=== PATIENT | male | born 1940 | race Caucasian/White ===

== ENCOUNTER → 2016-11-16 | Outpatient (CLI) | payer OTHER ==
[2016-11-16 13:07] LABS: BLOOD UREA NITROGEN 13 mg/dl (7-18); CREATININE 0.83 mg/dl (0.60-1.40); GLUCOSE 92 mg/dl (70-99)
[2016-11-16 13:08] LABS: BUN/CREATININE RATIO 15.1 (10-20); CARBON DIOXIDE 27 mmol/L (21-32); CHLORIDE 109 mmol/L (98-107); POTASSIUM 3.9 mmol/L (3.5-5.1); SODIUM 142 mmol/L (136-145)
[2016-11-16 13:28] LABS: CHOLESTEROL 197 mg/dl (0-200); CHOLESTEROL/HDL RATIO 4.3; HDL CHOLESTEROL 46 mg/dl; LDL CHOLESTEROL CALCULATED 127 mg/dl; PHOSPHORUS 2.5 mg/dl (2.5-4.9); TRIGLYCERIDES 120 mg/dl (0-150); VERY LOW DENSITY LIPOPROT CALC 24 mg/dl
[2016-11-16 13:38] LABS: CALCIUM 9.2 mg/dl (8.5-10.1)
== END | disposition home or self-care (01) ==
LOC: C.LABMFLN 10:21
PROVIDERS: ATTEND Urology
DX: E78.00 Pure hypercholesterolemia, unspecified (principal); N40.1 Benign prostatic hyperplasia with lower urinary tract symptoms

== ENCOUNTER → 2017-11-30 | Outpatient (CLI) | payer OTHER | END | disposition home or self-care (01) | LOC: C.LABMFLN 14:54 | PROVIDERS: ATTEND Urology | DX: N40.1 Benign prostatic hyperplasia with lower urinary tract symptoms (principal) ==

== ENCOUNTER → 2018-03-05 | Outpatient (CLI) | payer OTHER ==
[~2018-03-05] MED LIST: ASC400 PO
--- NOTE | 2018-03-05 12:11 | DIAGNOSTIC IMAGING REPORT ---
TWO VIEW CHEST CLINICAL HISTORY: Preoperative examination. FINDINGS: PA and lateral chest radiographs are obtained. No prior studies are available for comparison at the time of dictation. The cardiomediastinal silhouette is unremarkable noting atherosclerotic calcification of the thoracic aorta. Nonspecific interstitial thickening is likely chronic. No airspace consolidation or pleural effusion is identified. There is no pneumothorax. The skeletal structures are osteopenic. The bony thorax appears intact. Degenerative change is noted in the thoracic spine. IMPRESSION: No active disease in the chest. Electronically signed by: Jemal Christopher M.D. 03/05/2018 12:10 PM Dictated Date/Time: 03/05/2018 12:09 PM
[2018-03-05 12:13] LABS: BASO % 0.3 %; BASO ABS # 0.03 K/uL (0-0.2); EOS % 3.9 %; EOS ABS # 0.35 K/uL (0-0.5); HEMATOCRIT 48.4 % (42-52); HEMOGLOBIN 15.9 g/dL (14.0-18.0); IG# 0.02 K/uL (0.00-0.02); LYMPH % 28.6 %; LYMPH ABS # 2.57 K/uL (1.2-3.4); MEAN CELL VOLUME 91.3 fL (80-100); MEAN CORPUSCULAR HGB CONC 32.9 g/dl (32-36); MONO % 6.2 %; MONO ABS # 0.56 K/uL (0.11-0.59); NEUT % 60.8 %; NEUT ABS # 5.46 K/uL (1.4-6.5); PLATELET COUNT 237 K/uL (130-400); RED CELL DISTRIBUTION WIDTH CV 13.6 % (11.5-14.5); RED CELL DISTRIBUTION WIDTH SD 44.9 fL (36.4-46.3); WHITE BLOOD COUNT 8.99 K/uL (4.8-10.8)
[2018-03-05 12:23] LABS: BLOOD UREA NITROGEN 11 mg/dl (7-18); CALCIUM 8.7 mg/dl (8.5-10.1); CARBON DIOXIDE 27 mmol/L (21-32); CREATININE 0.79 mg/dl (0.60-1.40); GLUCOSE 104 mg/dl (70-99); SODIUM 139 mmol/L (136-145)
== END | disposition home or self-care (01) ==
LOC: C.CPL 10:50
PROVIDERS: ATTEND Orthopaedic Surgery
DX: Z01.818 Encounter for other preprocedural examination (principal)

== ENCOUNTER 2020-06-09 11:58 | Inpatient (IN) ==
[2020-06-09] MEDS ORDERED: SODIUM CHLORIDE 0.9% 500 ML IV SCH (12:30)
--- NOTE | 2020-06-09 12:34 | Emergency Department Note ---
Impression & Plan COVID-19, Weakness, Hypoxia, Decreased oral intake, Confusion ED Provider Note Provider: El Quintero MD DATE OF SERVICE:06/09/2020 CHIEF COMPLAINT: Confusion weakness coronavirus HISTORY OF PRESENT ILLNESS: Patient is a 80-year-old gentleman history of ulcerative colitis, BPH, emphysema presenting here today complaining of significant generalized weakness with diffuse myalgias being coronavirus positive. Patient was evaluated here 3 days ago did have a positive test from the end of last week for coronavirus 19. Patient previous seen by myself here and was complaining of nausea and weakness. Was hydrated had imaging and blood work and improved after IV hydration and antiemetics and wished to go home at that time. While being home he had worsening weakness and thus presents here. Patient himself complains of some severe pain and is quite fatigued. He denies significant diarrhea or nausea at this time. He is quite fatigued and only answers questions intermittently. Patient states he is not confused but again is difficult to get a good history from. No focal deficits appreciated. He does know the month and that May is coming up but is difficult to get detailed history from the patient. He denies any falls per his report. Patient's listed home contact number is not available. Did check with multiple staff members to see if the family has left an additional cell number on check- in today but not apparently available initially. I reviewed my prior note he started be symptomatic 8 days ago. Was able to get the patient's on cell phone later located and she reports limited intake less than 24 ounces of fluid over the last 2 days each. No more diarrhea reported but she states she can only have a conversation with anymore she not will be talking. She was concerned about them and thus brought her back here for reevaluation. He said he is not particular complaining of anything but again not really communicative. REVIEW OF SYSTEMS: Unable to obtain a full review of systems secondary the patient's mental status PAST MEDICAL HISTORY: As noted above MEDICATIONS: Reviewed home medication list SOCIAL HISTORY: Lives at home with , smoker PHYSICAL EXAM: GENERAL: alert to verbal stimuli no acute distress but only intermittently answers questions. Patient is aware of the month and the upcoming . Head: normocephalic and atraumatic EYES: No injection, discharge or icterus. NECK: Trachea midline. Supple. LUNGS: Airway patent. No retractions. HEART: Regular rate and rhythm. No chest wall tenderness ABDOMEN: Soft and non-tender, without guarding or rebound. SKIN: Acyanotic, warm, dry, without rashes EXTREMITIES: Without swelling, tenderness or deformity NEUROLOGICAL: Moves all extremities and follows simple commands. No facial droop appreciated. No significant slurred speech. Only intermittently answers questions. No significant facial droop appreciated. EK bpm normal sinus rhythm without PVC or PAC. Little bit of baseline artifact in V2. No clear ST segment elevation or depression. QTC 398. CONTINUOUS CARDIAC MONITORING: was ordered and showed a heart rate of 72 bpm in normal sinus rhythm Patient's laboratory studies and imaging reviewed. Differential includes Infection, dehydration, metabolic abnormality, hypo/hyperglycemia, electrolyte disturbance, anemia, hypoxia, cardiac sources, intracerebral event, toxicologic, neurologic, as well as other pathologies. IMPRESSION/MEDICAL DECISION MAKING: Patient presents known coronavirus positive now with worsening weakness and m yalgias and question of some confusion. Maintained on isolation here. Patient does not have significant focal deficits I doubt a large CVA. CT the head was completed given his age however to exclude acute intracranial normality given difficulty getting exam and history from the patient. Patient is Covid positive from PCR last week. Reviewed his prior work-up and did see him 3 days ago during prior ER visit. Repeat labs were sent today. Blood cultures been negative over the last 48 hours. Repeat chest x-ray was obtained. Given a fluid bolus. Patient has no significant abdominal tenderness on exam. Does follow some simple commands. CT the head without acute intracranial findings and again have a lower suspicion for acute CVA given his lack of focal neurological deficits. Lymphopenia is actually somewhat improved today. No anemia. Somewhat hypoxic and given dexamethasone here. Given his recent negative CTA within the last 72 hours do not feel we need to repeat at this time and have a lower suspicion for PE this is likely related to the coronavirus and worsening infection. D-dimer is somewhat more elevated today likely related to worsening coronavirus and also slightly elevated AST consistent with that as well. No significant electrolyte abnormalities with a mild hyponatremia 135 only noted. Creatinine similar to 3 days ago and no signs of acute STEPHANIE. Discussed with the patient's who we are able to locate via phone later and updated her on findings thus far. Patient requires admission given his worsening weakness and coronavirus status post hypoxic needs. Given dexamethasone for coronavirus treatment given his hypoxia at this time. Hospitalist contacted. DIAGNOSIS: COVID-19, weakness, hypoxia, decreased oral intake, confusion DISPOSITION: Hospitalist will evaluate for admission Past Med/Surg History Medical History (Updated 06/09/20 @ 15:56 by El Quintero M.D.) BPH (benign prostatic hyperplasia) Emphysema, unspecified Osteoarthritis PVC's (premature ventricular contractions) Ulcerative colitis Surgical History History of appendectomy History of cataract surgery B/L History of surgical removal of ganglion cyst L shoulder History of tonsillectomy History of total hip arthroplasty LEFT Social History Smoking Status: Current some day smoker Cigarettes Per Day: 10 PER DAY; Second Hand Exposure: No; Do You Dip or Chew Tobacco: No; Tobacco Cessation Education Requested by Patient: No Hx Alcohol Use: No Hx Substance Use: No Preferred Language: Bruneian Communication Ability: Effective Cloth Mender Required: No Beliefs That Will Affect Care: None marital status: Current Living Situation: Spouse Other Information That Helps Us Care for You: No Feels Safe at Home: Yes Safety Concerns: Feels Safe At This Time Assistive Devices: None Allergies Allergies Allergy/AdvReac Type Severity Reaction Status Date / Time No Known Allergies Allergy Verified 06/09/20 14:08 Home Meds Home Medications Medication Instructions Recorded Confirmed mesalamine [Delzicol] 800 mg PO TID 03/09/18 06/09/20 cholecalciferol (vitamin D3) 25 mcg PO QAM 06/06/20 06/09/20 [Vitamin D3] sildenafil 100 mg PO DIRECTED PRN 06/06/20 06/09/20 Zinc Gummies 1 tab PO DAILY 06/09/20 06/09/20 acetaminophen [Tylenol Extra 1,000 mg PO Q6H PRN 06/09/20 06/09/20 Strength] psyllium husk [Metamucil] 1 tbsp PO DAILY 06/09/20 06/09/20 Previous Rx's Medication Instructions Recorded ondansetron 4 mg PO Q8H PRN #12 tab 06/06/20 Results & Data (ED) Vital Signs Vital Signs - 24 hr 06/09/20 12:07 06/09/20 12:08 06/09/20 12:15 Pulse Rate 70 71 69 Pulse Rate from SpO2 Sensor 71 72 69 Pulse Rhythm Regular Pulse Strength Normal Respiratory Rate 26 H 21 Respiratory Effort / Characteristics Non-Labored Respiratory Depth Normal Respiratory Pattern Regular Blood Pressure 150/70 H Blood Pressure Mean 104 Blood Pressure Position Lying Pulse Oximetry 96 96 100 Oxygen Delivery Method Nasal Cannula Oxygen Flow Rate 3 3 3 Sepsis Recent Fever Within 48 Hours Yes Sepsis New/Unexplained Change in Mental Status Yes Sepsis Action Taken by Nursing No Action Required 06/09/20 12:20 06/09/20 12:28 06/09/20 12:30 Pulse Rate 70 68 Pulse Rate from SpO2 Sensor 74 69 Pulse Rhythm Pulse Strength Respiratory Rate 31 H 30 H Respiratory Effort / Characteristics Respiratory Depth Respiratory Pattern Blood Pressure 130/71 141/64 H Blood Pressure Mean 91 87 Blood Pressure Position Pulse Oximetry 85 L 97 94 Oxygen Delivery Method Room Air Oxygen Flow Rate 3 3 Sepsis Recent Fever Within 48 Hours Sepsis New/Unexplained Change in Mental Status Sepsis Action Taken by Nursing 06/09/20 12:39 06/09/20 12:45 06/09/20 12:46 Pulse Rate 69 69 Pulse Rate from SpO2 Sensor 69 69 Pulse Rhythm Pulse Strength Respiratory Rate 23 28 H Respiratory Effort / Characteristics Respiratory Depth Respiratory Pattern Blood Pressure 148/88 H Blood Pressure Mean 123 Blood Pressure Position Pulse Oximetry 95 93 95 Oxygen Delivery Method Nasal Cannula Oxygen Flow Rate 2 3 3 Sepsis Recent Fever Within 48 Hours Sepsis New/Unexplained Change in Mental Status Sepsis Action Taken by Nursing 06/09/20 13:00 06/09/20 13:15 06/09/20 13:16 Pulse Rate 68 71 73 Pulse Rate from SpO2 Sensor 70 71 72 Pulse Rhythm Pulse Strength Respiratory Rate 30 H 30 H 26 H Respiratory Effort / Characteristics Respiratory Depth Respiratory Pattern Blood Pressure 158/102 H 146/74 H Blood Pressure Mean 118 93 Blood Pressure Position Pulse Oximetry 94 95 Oxygen Delivery Method Oxygen Flow Rate 3 3 Sepsis Recent Fever Within 48 Hours Sepsis New/Unexplained Change in Mental Status Sepsis Action Taken by Nursing 06/09/20 13:30 Pulse Rate 68 Pulse Rate from SpO2 Sensor 69 Pulse Rhythm Pulse Strength Respiratory Rate 20 Respiratory Effort / Characteristics Respiratory Depth Respiratory Pattern Blood Pressure 132/67 Blood Pressure Mean 90 Blood Pressure Position Pulse Oximetry 93 Oxygen Delivery Method Oxygen Flow Rate 3 Sepsis Recent Fever Within 48 Hours Sepsis New/Unexplained Change in Mental Status Sepsis Action Taken by Nursing Laboratory Data Result diagrams: 06/09/20 12:25 06/09/20 12:25 Lab Results 06/09/20 06/09/20 06/09/20 Range/Units 12:25 12:25 12:25 WBC (4.8-10.8) K/uL RBC (4.7-6.1) M/uL Hgb (14.0-18.0) g/dL Hct (42-52) % MCV (80-100) fL MCH (25-34) pg MCHC (32-36) g/dL RDW Std Deviation (36.4-46.3) fL RDW Coeff of Kathrin (11.5-14.5) % Plt Count (130-400) K/uL MPV (7.4-10.4) fL Immature Gran % (Auto) % Neut % (Auto) % Lymph % (Auto) % [place] % (Auto) % Eos % (Auto) % Baso % (Auto) % Neut # (Auto) (1.4-6.5) K/uL Lymph # (Auto) (1.2-3.4) K/uL [place] # (Auto) (0.11-0.59) K/uL Eos # (Auto) (0-0.5) K/uL Baso # (Auto) (0-0.2) K/uL Immature Gran # (Auto) (0.00-0.02) K/uL PT 11.5 (9.0-12.0) Seconds INR 1.1 (0.9-1.1) D-Dimer 1460 H* (0-500) ug/L FEU Sodium 135 L (136-145) mmol/L Potassium 3.8 (3.5-5.1) mmol/L Chloride 101 (98-107) mmol/L Carbon Dioxide 28 (21-32) mmol/L Anion Gap 6.0 (3-11) BUN 20 H (7-18) mg/dl Creatinine 1.13 (0.6-1.4) mg/dl Est Cr Clr Drug Dosing Not Reportable Est GFR ( Amer) 71.3 Est GFR (Non-Af Amer) 61.5 BUN/Creatinine Ratio 17.7 (10-20) Glucose 108 H (70-99) mg/dl Lactate 1.4 (0.4-2.0) mmol/L Calcium 8.5 (8.5-10.1) mg/dl Magnesium 2.4 (1.8-2.4) mg/dl Total Bilirubin 0.5 (0.2-1) mg/dl AST 53 H (15-37) U/L ALT 32 (12-78) U/L Alkaline Phosphatase 93 (45-117) U/L Troponin I < 0.015 (0-0.045) ng/ml C-Reactive Protein 18.80 H (0-0.29) mg/dl Total Protein 7.9 (6.4-8.2) gm/dl Albumin 3.1 L (3.4-5.0) gm/dl Globulin 4.8 H (2.5-4.0) gm/dl Albumin/Globulin Ratio 0.6 L (0.9-2) Procalcitonin (0-0.5) ng/ml TSH 0.437 (0.300-4.500) uIu/ml Blood Type Antibody Screen 06/09/20 06/09/20 06/09/20 Range/Units 12:25 13:40 13:40 WBC 4.34 L (4.8-10.8) K/uL RBC 5.50 (4.7-6.1) M/uL Hgb 16.6 (14.0-18.0) g/dL Hct 49.9 (42-52) % MCV 90.7 (80-100) fL MCH 30.2 (25-34) pg MCHC 33.3 (32-36) g/dL RDW Std Deviation 44.1 (36.4-46.3) fL RDW Coeff of Kathrin 13.2 (11.5-14.5) % Plt Count 156 (130-400) K/uL MPV 10.6 H (7.4-10.4) fL Immature Gran % (Auto) 0.2 % Neut % (Auto) 77.4 % Lymph % (Auto) 15.7 % [place] % (Auto) 6.5 % Eos % (Auto) 0.0 % Baso % (Auto) 0.2 % Neut # (Auto) 3.36 (1.4-6.5) K/uL Lymph # (Auto) 0.68 L (1.2-3.4) K/uL [place] # (Auto) 0.28 (0.11-0.59) K/uL Eos # (Auto) 0.00 (0-0.5) K/uL Baso # (Auto) 0.01 (0-0.2) K/uL Immature Gran # (Auto) 0.01 (0.00-0.02) K/uL PT (9.0-12.0) Seconds INR (0.9-1.1) D-Dimer (0-500) ug/L FEU Sodium (136-145) mmol/L Potassium (3.5-5.1) mmol/L Chloride (98-107) mmol/L Carbon Dioxide (21-32) mmol/L Anion Gap (3-11) BUN (7-18) mg/dl Creatinine (0.6-1.4) mg/dl Est Cr Clr Drug Dosing Est GFR ( Amer) Est GFR (Non-Af Amer) BUN/Creatinine Ratio (10-20) Glucose (70-99) mg/dl Lactate (0.4-2.0) mmol/L Calcium (8.5-10.1) mg/dl Magnesium (1.8-2.4) mg/dl Total Bilirubin (0.2-1) mg/dl AST (15-37) U/L ALT (12-78) U/L Alkaline Phosphatase (45-117) U/L Troponin I (0-0.045) ng/ml C-Reactive Protein (0-0.29) mg/dl Total Protein (6.4-8.2) gm/dl Albumin (3.4-5.0) gm/dl Globulin (2.5-4.0) gm/dl Albumin/Globulin Ratio (0.9-2) Procalcitonin 0.23 (0-0.5) ng/ml TSH (0.300-4.500) uIu/ml Blood Type AB Positive Antibody Screen NEGATIVE Administered Medications Lactated Ringer's (Lr) 1,000 mls @ 150 mls/hr IV .Q6H40M [facility] Stop: 07/09/20 13:59 Last Admin: 06/09/20 14:38 Dose: 80 mls/hr Documented by: [id number] Discontinued Medications Dexamethasone (Dexamethasone Sod Inj 10 Mg/Ml Vial) 6 mg IV NOW ONE Stop: 06/09/20 12:52 Last Admin: 06/09/20 13:30 Dose: 6 mg Documented by: [id number] Sodium Chloride (Nss) 500 mls @ 999 mls/hr IV .Q31M KYLE Stop: 06/09/20 13:00 Last Infusion: 06/09/20 13:55 Dose: 0 mls/hr Documented by: [id number] Admin: 06/09/20 12:48 Dose: 999 mls/hr Documented by: [id number] Discharge Plan Visit Data Chief Complaint: Confusion Stated Complaint: COVID +, TOTAL CONFUSION, NOT FUNCTIONING ED Provider: El Quintero Discharge Problem: COVID-19, Weakness, Hypoxia, Decreased oral intake, Confusion Patient Disposition: Admitted As Inpatient Discharge Instructions Interventions: ED Discharge Assessment Last Done: 06/09/20 14:09
--- NOTE | 2020-06-09 12:42 | CT Scan Report ---
CT head/brain wo con CLINICAL HISTORY: Weakness, confusion, Covid positive patient COMPARISON STUDY: No previous studies for comparison. TECHNIQUE: Axial CT of the brain is performed from the vertex to the skull base. IV contrast was not administered for this examination. A dose lowering technique was utilized adhering to the principles of ALARA. CT DOSE: 690.05 mGycm FINDINGS: No intra or extra-axial mass lesions are visualized. There is no CT evidence of acute cortical infarc tion. There is no evidence of midline shift. There is no acute hemorrhage. No calvarial fractures ar e visualized. There is no evidence of pathologic ventricular dilatation. There is no evidence of acute sinusitis IMPRESSION: No acute intracranial findings ACT 112: Negative or not required by law. Electronically signed by: Aditya Chambers M.D. 06/09/2020 12:41 PM
[2020-06-09 12:48] LABS: Basophils # (auto) 0.01 K/uL (0-0.2); Basophils % (auto) 0.2 %; Hematocrit (blood only) 49.9 % (42-52); Hemoglobin 16.6 g/dL (14.0-18.0); Immature Granulocytes # (auto) 0.01 K/uL (0.00-0.02); Immature Granulocytes % (auto) 0.2 %; Lymphocytes # (auto) 0.68 K/uL (1.2-3.4); Lymphocytes % (auto) 15.7 %; Mean Corpuscular Hemoglobin 30.2 pg (25-34); Mean Corpuscular Hgb Conc 33.3 g/dL (32-36); Mean Corpuscular Volume 90.7 fL (80-100); Mean Platelet Volume 10.6 fL (7.4-10.4); Monocytes # (auto) 0.28 K/uL (0.11-0.59); Monocytes % (auto) 6.5 %; Neutrophils # (auto) 3.36 K/uL (1.4-6.5); Neutrophils % (auto) 77.4 %; Platelet Count 156 K/uL (130-400); RDW Coefficient of Variation 13.2 % (11.5-14.5); RDW Standard Deviation 44.1 fL (36.4-46.3); White Blood Count 4.34 K/uL (4.8-10.8)
[2020-06-09] MEDS ORDERED: DEXAMETHASONE SOD INJ 10 MG/ML VIAL IV ONE (12:51)
[2020-06-09 13:02] LABS: INR 1.1 (0.9-1.1); Prothrombin Time 11.5 Seconds (9.0-12.0)
[2020-06-09 13:05] LABS: Alanine Aminotransferase 32 U/L (12-78); Albumin Level 3.1 gm/dl (3.4-5.0); Aspartate Aminotransferase 53 U/L (15-37); BUN Creatinine Ratio 17.7 (10-20); Blood Urea Nitrogen 20 mg/dl (7-18); Calcium 8.5 mg/dl (8.5-10.1); Carbon Dioxide 28 mmol/L (21-32); Chloride 101 mmol/L (98-107); Est GFR (African American) 71.3; Est GFR (Non-African American) 61.5; Glucose 108 mg/dl (70-99); Magnesium 2.4 mg/dl (1.8-2.4); Potassium 3.8 mmol/L (3.5-5.1); Sodium 135 mmol/L (136-145)
[2020-06-09 13:09] LABS: D Dimer 1460 ug/L FEU (0-500)
[2020-06-09 13:16] LABS: Albumin Globulin Ratio 0.6 (0.9-2); Alkaline Phosphatase 93 U/L (45-117); Bilirubin,Total 0.5 mg/dl (0.2-1); Globulin 4.8 gm/dl (2.5-4.0); Thyroid Stimulating Hormone 0.437 uIu/ml (0.300-4.500); Total Protein 7.9 gm/dl (6.4-8.2); Troponin I < 0.015 ng/ml (0-0.045)
--- NOTE | 2020-06-09 13:36 | XRay Report ---
XR chest 1V portable CLINICAL HISTORY: weakness COMPARISON STUDY: 06/06/2020 FINDINGS: The heart is the upper limits of normal in size. There are bilateral interstitial opacities . Likely diagnostic considerations this could represent a bilateral pneumonia (viral), or atypical ap pearance of pulmonary edema. Clinical and radiographic follow-up is recommended. There are postsurgic al changes of a reverse total right shoulder arthroplasty IMPRESSION: 1. Interval development of diffuse bilateral interstitial opacities. Likely diagnostic considerations include a bilateral pneumonia (viral), or atypical appearance of pulmonary edema. Correlation with C ovid 19 test results recommended.. ACT 112: Negative or not required by law. Electronically signed by: Aditya Chambers M.D. 06/09/2020 1:35 PM
--- NOTE | 2020-06-09 13:38 | History & Physical Report ---
Date of Service June 09, 2020 Assessment & Plan (1) COVID-19: Dexamethasone 6mg IV daily for 10 days. Start remdesivir. Convalescent plasma - verbal consent for transfusion gained from his . (2) Hypoxia: Does not appear to be in respiratory distress. Aim O2 sats > 90% (3) Weakness: Secondary to above. Once improving will need extensive PT/OT. (4) Altered mental state: Suspected infective/metabolic encephalopathy secondayr to dehydration and COVID-19. reports much improvement with IV fluids given in ER previously. (5) Decreased oral intake: LR 150 ml/hr. If no oral intake tomorrow may have to consider NG tube. (6) Ulcerative colitis: Continue mesalamine 800mg TID (7) DVT prophylaxis: Lovenox 40mg SQ BID Admission and Anticipated Discharge Date Admission Date: 06/09/2020 History of Present Illness Chief Complaint: Generalized fatigue and altered mental status Primary Care Provider: Anay Barrios MD Todd Jett is a 80 year old male with known diagnosis of COVID-19 who presents to the ER with altered mental state and worsening ambulation. Unable to get any history from patient but does note he is not in any pain. Following simple one step commands but disorientated x3. Baseline obtained from his . He is ambulatory without aids. Able to have full meaningful conversations - currently very far off his baseline mentation. He was seen in the ER 3 days previously for shortness of breath, nausea and fatigue. Onset of symptoms per PCP note June 01 (8 days previously). During his last ER visit the patient did not wish to stay in hospital and was not significantly hypoxic. He improved his mentation substantially with 1L NSS bolus therefore was subsequently discharged home. Unfortunately he continued to significantly decline at home and became much more generally confused and weak. No one sided weakness. His reports he has not been drinking or eating much at all in the last 2 days. Nausea is somewhat better but her biggest concern is he now cannot ambulate and is not answering questions appropriately - mainly just moaning and groaning. Discussed interventions with his over the phone including dexamethasone, convalescent plasma and remdesivir which she agreed to all three of these interventions. Allergies Allergy/AdvReac Type Severity Reaction Status Date / Time No Known Allergies Allergy Verified 06/09/20 14:08 Home Medications Medication Instructions Recorded Confirmed Type mesalamine [Delzicol] 800 mg PO TID 03/09/18 06/09/20 History cholecalciferol (vitamin D3) 25 mcg PO QAM 06/06/20 06/09/20 History [Vitamin D3] ondansetron 4 mg PO Q8H PRN #12 tab 06/06/20 06/09/20 Rx sildenafil 100 mg PO DIRECTED PRN 06/06/20 06/09/20 History Zinc Gummies 1 tab PO DAILY 06/09/20 06/09/20 History acetaminophen [Tylenol Extra 1,000 mg PO Q6H PRN 06/09/20 06/09/20 History Strength] psyllium husk [Metamucil] 1 tbsp PO DAILY 06/09/20 06/09/20 History Past Med/Surg History Medical History BPH (benign prostatic hyperplasia) Emphysema, unspecified Osteoarthritis PVC's (premature ventricular contractions) Ulcerative colitis Surgical History History of appendectomy History of cataract surgery B/L History of surgical removal of ganglion cyst L shoulder History of tonsillectomy History of total hip arthroplasty LEFT Social History Smoking Status: Current some day smoker Cigarettes Per Day: 10 PER DAY; Second Hand Exposure: No; Do You Dip or Chew Tobacco: No; Tobacco Cessation Education Requested by Patient: No Hx Alcohol Use: No Hx Substance Use: No Preferred Language: Bengali Communication Ability: Effective Entry Level Receptionist Required: No Beliefs That Will Affect Care: None marital status: Current Living Situation: Spouse Other Information That Helps Us Care for You: No Feels Safe at Home: Yes Safety Concerns: Feels Safe At This Time Assistive Devices: Oxygen - Continuous Review of Systems Review of Systems: Unobtainable due to cognitive status Physical Exam Constitutional: well developed; + not well nourished and no acute distress Lying on left side an will not roll onto his back for me Eyes: PERRL, conjunctivae normal, anicteric sclerae Neck: trachea midline Respiratory: Auscultation: + rhonchi (bilateral); no wheezes Cardiovascular: Rate/Rhythm: regular rate and regular rhythm Heart Sounds: no murmur Extremities: normal capillary refill; no calf tenderness and no pedal edema Gastrointestinal (Abdomen): Inspection/Auscultation: abdomen normal to inspection and + hypoactive bowel sounds; abdomen not distended Percussion/Palpation: abdomen soft; abdomen nontender, no guarding and abdomen not rigid Musculoskeletal: no cyanosis or clubbing, extremities motor strength 5/5 Skin: no rashes, warm and dry Neurologic: moves all extremities, awake and + confused (able to follow simple one step commands); no focal motor deficits (no lateralizing decifit) Motor/Sensory: no tremor Psychiatric: Orientation: alert; + not oriented to person, + not oriented to place and + not oriented to time Results & Data Results & Data ([facility]) Vital Signs (Past 12 Hours) Vital Signs Pulse Resp BP Pulse Ox 06/09/20 12:46 69 28 H 148/88 H 95 06/09/20 12:45 69 23 93 06/09/20 12:39 95 06/09/20 12:30 68 30 H 141/64 H 94 06/09/20 12:28 70 31 H 130/71 97 06/09/20 12:20 85 L 06/09/20 12:15 69 21 100 06/09/20 12:08 71 96 06/09/20 12:07 70 26 H 150/70 H 96 Diagnostic Findings XR chest 1V portable IMPRESSION: 1. Interval development of diffuse bilateral interstitial opacities. Likely diagnostic considerations include a bilateral pneumonia (viral), or atypical appearance of pulmonary edema. Correlation with Covid [address] head/brain wo con IMPRESSION: No acute intracranial findings Medications Administered ER medications given: NSS 500 mL IV bolus Dexamethasone 6 mg IV ECG Indication: altered mental status Rate (beats per minute): 69 Rhythm: normal sinus Comparison ECG Date: from (June 06, 2020) Change: no significant change Code Status & VTE Plan Code Status DNR. His wishes to have all other treatment outside of the cardiac arrest including intubation and ventilation. VTE Prophylaxis Plan VTE Prophylaxis will be ordered: Yes PG Care Time/CCT Total # of Minutes Spent Total Time Spent with Patient: Total time spent is greater than 50% in coordination of care (as documented) at patient's floor/unit and/or counseling patient: Coding Level of Care Code 99782 Initial Inpt Care Lvl 3 Diagnoses COVID-19 U07.1 Hypoxia R09.02 Weakness R53.1 Altered mental state R41.82 Decreased oral intake R63.8 Ulcerative colitis K51.90 DVT prophylaxis Z29.9
[2020-06-09] MEDS: LACTATED RINGER'S 1,000 ML IV SCH (14:38)
[2020-06-09] MEDS ORDERED: POLYETHYLENE (MIRALAX) 17 GM PACK PO PRN (15:25)
[2020-06-09] MEDS ORDERED: ONDANSETRON INJ 2 MG/ML 2 ML VIAL IV PRN (15:25)
[2020-06-09] MEDS ORDERED: ALUMINUM/MAGNESIUM SUSP 30 ML UDC PO PRN (15:25)
[2020-06-09] MEDS ORDERED: REMDESIVIR 200 MG in SODIUM CHLORIDE 0.9% 210 ML IV ONE (16:00)
[2020-06-09] MEDS ORDERED: SODIUM CHLORIDE 0.9% 10ML FLUSH IV SCH (18:00)
[2020-06-09] MEDS: MESALAMINE 400 MG CAPDR PO SCH (20:06)
[2020-06-09] MEDS: ENOXAPARIN INJ 40 MG/0.4 ML SYR SQ SCH (20:06)
[2020-06-09 20:12] LABS: Appearance Urine Clear (Clear); Bacteria Urine Automated Negative (Negative); Bilirubin Urine Negative (Negative); Blood Urine 3+ (Negative); Color Urine Dark Yellow; Epithelial Cell Urine Auto >30 /lpf (0-5); Glucose Urine UA Negative (Negative); Ketones Urine 2+ (Negative); Leukocyte Esterase Urine Negative (Negative); Nitrite Urine Negative (Negative); Protein Urine 2+ (Negative); RBC Urine Automated >30 /hpf (0-4); Specific Gravity Urine 1.031 (1.000-1.030); Urobilinogen Urine Negative (Negative); pH Urine 5.5 (4.5-7.5)
[2020-06-10] MEDS: LACTATED RINGER'S 1,000 ML IV SCH ×3 (00:56→14:39)
[2020-06-10] MEDS: ACETAMINOPHEN 325 MG TAB PO PRN (04:45)
--- NOTE | 2020-06-10 05:01 | Electrocardiogram Report ---
Test Reason : Blood Pressure : / mmHG Vent. Rate : 069 BPM Atrial Rate : 069 BPM P-R Int : 142 ms QRS Dur : 080 ms QT Int : 372 ms P-R-T Axes : 056 060 070 degrees QTc Int : 398 ms Normal sinus rhythm Possible Left atrial enlargement Borderline ECG When compared with ECG of 06-JUN-2020 12:57, No significant change was found Confirmed by Chris Willingham ([id number]) on 06/10/2020 5:01:23 AM Referred By: Confirmed By:Chris Willingham
[2020-06-10 08:07] LABS: Hematocrit (blood only) 43.8 % (42-52); Immature Granulocytes # (auto) 0.01 K/uL (0.00-0.02); Immature Granulocytes % (auto) 0.2 %; Lymphocytes % (auto) 16.5 %; Mean Corpuscular Hemoglobin 30.9 pg (25-34); Mean Corpuscular Hgb Conc 34.2 g/dL (32-36); Mean Corpuscular Volume 90.1 fL (80-100); Mean Platelet Volume 11.5 fL (7.4-10.4); Monocytes # (auto) 0.49 K/uL (0.11-0.59); Monocytes % (auto) 10.1 %; Neutrophils # (auto) 3.56 K/uL (1.4-6.5); Neutrophils % (auto) 73.2 %; Platelet Count 171 K/uL (130-400); RDW Coefficient of Variation 13.3 % (11.5-14.5); RDW Standard Deviation 44.3 fL (36.4-46.3); Red Blood Count 4.86 M/uL (4.7-6.1); White Blood Count 4.86 K/uL (4.8-10.8)
[2020-06-10 08:34] LABS: Albumin Level 2.5 gm/dl (3.4-5.0); Calcium 8.6 mg/dl (8.5-10.1); Creatinine Clr Calc Pharmacy 67.6 ml/min; Est GFR (African American) 98.5
[2020-06-10 08:36] LABS: Albumin Globulin Ratio 0.7 (0.9-2); Bilirubin,Total 0.5 mg/dl (0.2-1); Globulin 3.7 gm/dl (2.5-4.0); Total Protein 6.2 gm/dl (6.4-8.2)
[2020-06-10] MEDS: ENOXAPARIN INJ 40 MG/0.4 ML SYR SQ SCH ×2 (09:10→19:30)
[2020-06-10] MEDS: MESALAMINE 400 MG CAPDR PO SCH ×3 (09:11→19:29)
[2020-06-10] MEDS: CHOLECALCIFEROL 1,000 UNITS 25 MCG TAB PO SCH (09:11)
[2020-06-10] MEDS: REMDESIVIR 100 MG in SODIUM CHLORIDE 0.9% 230 ML IV SCH (09:17)
[2020-06-10] MEDS: DEXAMETHASONE SOD PHOSPHATE 6 MG in SYRINGE 0 ML IV SCH (09:18)
[2020-06-10] MEDS: SODIUM CHLORIDE 0.9% 10ML FLUSH IV SCH (09:18)
--- NOTE | 2020-06-10 22:37 | Hospitalist Progress Note ---
Date of Service June 10, 2020 Assessment & Plan (1) COVID-19: Dexamethasone 6mg IV daily for 10 days. Started remdesivir. concern over discharging too soon, however patient is no longer confused, will reassess in AM. Convalescent plasma - verbal consent for transfusion gained from his . (2) Hypoxia: Does not appear to be in respiratory distress. Aim O2 sats > 90% (3) Weakness: Secondary to above. Once improving will need extensive PT/OT. (4) Altered mental state: Suspected infective/metabolic encephalopathy secondayr to dehydration and COVID-19. reports much improvement with IV fluids given in ER previously. (5) Decreased oral intake: LR 150 ml/hr. (6) Ulcerative colitis: Continue mesalamine 800mg TID (7) DVT prophylaxis: Lovenox 40mg SQ BID Admission and Anticipated Discharge Date Admission Date: June 09, 2020 Subjective States breathing better, wants to be discharged in AM. Review of Systems Review of Systems: All systems reviewed & are unremarkable except as noted in HPI & below Physical Exam Physical Exam: Constitutional: well developed; + not well nourished and no acute distress Eyes: PERRL, conjunctivae normal, anicteric sclerae Neck: trachea midline Respiratory: Auscultation: rhonchi (bilateral); no wheezes Cardiovascular: Rate/Rhythm: regular rate and regular rhythm Heart Sounds: no murmur Extremities: normal capillary refill; no calf tenderness and no pedal edema Gastrointestinal (Abdomen): Inspection/Auscultation: abdomen normal to inspection and + hypoactive bowel sounds; abdomen not distended Percussion/Palpation: abdomen soft; abdomen nontender, no guarding and abdomen not rigid Musculoskeletal: no cyanosis or clubbing, extremities motor strength 5/5 Skin: no rashes, warm and dry Neurologic: moves all extremities, awake and + confused (able to follow simple one step commands); no focal motor deficits (no lateralizing decifit) Motor/Sensory: no tremor Psychiatric: Orientation: alert; oriented x3 Results & Data Results & Data ([facility]) Vital Signs (Past 12 Hours) Vital Signs Temp Pulse Pulse Resp BP Pulse Ox 06/10/20 19:16 36.6 C 57 L 19 122/50 L 90 06/10/20 16:18 36.4 C L 56 L 18 129/52 L 92 06/10/20 15:23 61 06/10/20 12:07 36.5 C 60 19 138/68 90 PG Care Time/CCT Total # of Minutes Spent Total Time Spent with Patient: Total time spent is greater than 50% in coordination of care (as documented) at patient's floor/unit and/or counseling patient: Coding Level of Care Code 76268 Subseq Hosp Care Lvl 3 Diagnoses COVID-19 U07.1 Hypoxia R09.02 Weakness R53.1 Altered mental state R41.82 Decreased oral intake R63.8 Ulcerative colitis K51.90 DVT prophylaxis Z29.9
[2020-06-11 07:31] LABS: Hematocrit (blood only) 43.4 % (42-52); Hemoglobin 14.5 g/dL (14.0-18.0); Mean Corpuscular Hemoglobin 30.1 pg (25-34); Mean Corpuscular Hgb Conc 33.4 g/dL (32-36); Mean Corpuscular Volume 90.2 fL (80-100); Mean Platelet Volume 11.8 fL (7.4-10.4); Platelet Count 198 K/uL (130-400); RDW Coefficient of Variation 13.5 % (11.5-14.5); Red Blood Count 4.81 M/uL (4.7-6.1); White Blood Count 7.28 K/uL (4.8-10.8)
[2020-06-11 09:14] LABS: BUN Creatinine Ratio 29.6 (10-20); Calcium 8.1 mg/dl (8.5-10.1); Creatinine Clr Calc Pharmacy 72.1 ml/min; Est GFR (African American) 101.1; Est GFR (Non-African American) 87.2; Potassium 4.3 mmol/L (3.5-5.1)
[2020-06-11] MEDS: REMDESIVIR 100 MG in SODIUM CHLORIDE 0.9% 230 ML IV SCH (09:21)
[2020-06-11] MEDS: CHOLECALCIFEROL 1,000 UNITS 25 MCG TAB PO SCH (09:22)
[2020-06-11] MEDS: DEXAMETHASONE SOD PHOSPHATE 6 MG in SYRINGE 0 ML IV SCH (09:22)
[2020-06-11] MEDS: MESALAMINE 400 MG CAPDR PO SCH ×4 (09:23→22:59)
[2020-06-11] MEDS: ENOXAPARIN INJ 40 MG/0.4 ML SYR SQ SCH ×2 (09:23→20:20)
[2020-06-11] MEDS: SODIUM CHLORIDE 0.9% 10ML FLUSH IV SCH (09:24)
--- NOTE | 2020-06-11 10:14 | XRay Report ---
XR chest 1V portable HISTORY: 80 years-old Male hypoxia acute hypoxia COMPARISON: Chest radiograph 06/09/2020 TECHNIQUE: Portable AP view of the chest FINDINGS: Cardiomediastinal and hilar silhouettes are within normal limits. Mild emphysema. Bilateral interstit ial opacities are redemonstrated, stable to slightly improved from comparison. There is improved aera tion of the left lung base. No pneumothorax, pleural effusion or lobar airspace elevation. Degenerati ve changes of the left shoulder and spine. Reverse right shoulder total joint arthroplasty. IMPRESSION: Stable to slightly improved bilateral reticular opacities with improved aeration of the l eft lung base. Findings are suggestive of atypical pneumonia versus pulmonary edema. ACT 112: Negative or not required by law. The above report was generated using voice recognition software. It may contain grammatical, syntax o r spelling errors. Electronically signed by: Gideon Goodrich M.D. 06/11/2020 10:13 AM
[2020-06-11] MEDS: LACTATED RINGER'S 1,000 ML IV SCH (19:15)
[2020-06-11] MEDS: ACETAMINOPHEN 325 MG TAB PO PRN (21:07)
--- NOTE | 2020-06-11 23:16 | Hospitalist Progress Note ---
Date of Service June 11, 2020 Assessment & Plan (1) COVID-19: Dexamethasone 6mg IV daily for 10 days. continue remdesivir final dose (06/13) requiring now 4 liters nasal cannula, more than day prior which was 2 liters. Patient no longer confused, but still wants to leave. His though will not pick him up. Convalescent plasma - verbal consent for transfusion gained from his . (2) Hypoxia: Does not appear to be in respiratory distress. Aim O2 sats > 90% (3) Weakness: Secondary to above. did poorly with PT. (4) Altered mental state: Suspected infective/metabolic encephalopathy secondayr to dehydration and COVID-19. Improved.. (5) Decreased oral intake: treated with iV flud for first 36 hours. held fluid. (6) Ulcerative colitis: Continue mesalamine 800mg TID (7) DVT prophylaxis: Lovenox 40mg SQ BID Admission and Anticipated Discharge Date Admission Date: June 09, 2020 Subjective Patient upset that he is in hospital. "I am sick of this medcal bullshit, I want to go home" Nurse at bedside and explains that he did poorly on physical therapy and is requiring more oxygen. Updated on phone. Review of Systems Review of Systems: All systems reviewed & are unremarkable except as noted in HPI & below Physical Exam Physical Exam: Constitutional: well developed; + not well nourished and no acute distress Eyes: PERRL, conjunctivae normal, anicteric sclerae Neck: trachea midline Respiratory: Auscultation: rhonchi (bilateral); no wheezes Cardiovascular: Rate/Rhythm: regular rate and regular rhythm Heart Sounds: no murmur Extremities: normal capillary refill; no calf tenderness and no pedal edema Gastrointestinal (Abdomen): Inspection/Auscultation: abdomen normal to inspection and + hypoactive bowel sounds; abdomen not distended Percussion/Palpation: abdomen soft; abdomen nontender, no guarding and abdomen not rigid Musculoskeletal: no cyanosis or clubbing, extremities motor strength 5/5 Skin: no rashes, warm and dry Neurologic: moves all extremities, awake and + confused (able to follow simple one step commands); no focal motor deficits (no lateralizing decifit) Motor/Sensory: no tremor Psychiatric: Orientation: alert; oriented x3 Results & Data Results & Data ([facility]) Vital Signs (Past 12 Hours) Vital Signs Temp Pulse Pulse Resp BP Pulse Ox 06/11/20 19:05 37.0 C 62 20 132/58 L 95 06/11/20 16:00 59 L 06/11/20 15:07 36.6 C 60 24 144/53 H 95 06/11/20 11:36 36.6 C 59 L 19 119/61 93 PG Care Time/CCT Total # of Minutes Spent Total Time Spent with Patient: Total time spent is greater than 50% in coordination of care (as documented) at patient's floor/unit and/or counseling patient: Coding Level of Care Code 23263 Subseq Hosp Care Lvl 3 Diagnoses COVID-19 U07.1 Hypoxia R09.02 Weakness R53.1 Altered mental state R41.82 Decreased oral intake R63.8 Ulcerative colitis K51.90 DVT prophylaxis Z29.9 Time Spent (min) 35
[2020-06-12 06:46] LABS: Basophils # (auto) 0.01 K/uL (0-0.2); Basophils % (auto) 0.2 %; Eosinophils # (auto) 0.01 K/uL (0-0.5); Eosinophils % (auto) 0.2 %; Hematocrit (blood only) 47.7 % (42-52); Hemoglobin 15.8 g/dL (14.0-18.0); Immature Granulocytes # (auto) 0.02 K/uL (0.00-0.02); Immature Granulocytes % (auto) 0.3 %; Lymphocytes % (auto) 16.8 %; Mean Corpuscular Hemoglobin 30.2 pg (25-34); Mean Corpuscular Hgb Conc 33.1 g/dL (32-36); Mean Corpuscular Volume 91.2 fL (80-100); Mean Platelet Volume 11.4 fL (7.4-10.4); Monocytes # (auto) 0.14 K/uL (0.11-0.59); Monocytes % (auto) 2.1 %; Neutrophils # (auto) 5.27 K/uL (1.4-6.5); Neutrophils % (auto) 80.4 %; Platelet Count 216 K/uL (130-400); RDW Coefficient of Variation 13.8 % (11.5-14.5); RDW Standard Deviation 46.3 fL (36.4-46.3); Red Blood Count 5.23 M/uL (4.7-6.1); White Blood Count 6.55 K/uL (4.8-10.8)
[2020-06-12 07:14] LABS: BUN Creatinine Ratio 26.4 (10-20); Calcium 8.5 mg/dl (8.5-10.1); Creatinine Clr Calc Pharmacy 62.1 ml/min; Est GFR (African American) 95.1; Est GFR (Non-African American) 82.1; Potassium 4.3 mmol/L (3.5-5.1)
[2020-06-12] MEDS: DEXAMETHASONE SOD PHOSPHATE 6 MG in SYRINGE 0 ML IV SCH (09:38)
[2020-06-12] MEDS: REMDESIVIR 100 MG in SODIUM CHLORIDE 0.9% 230 ML IV SCH (09:38)
[2020-06-12] MEDS: ENOXAPARIN INJ 40 MG/0.4 ML SYR SQ SCH ×2 (09:38→22:02)
[2020-06-12] MEDS: CHOLECALCIFEROL 1,000 UNITS 25 MCG TAB PO SCH (09:39)
[2020-06-12] MEDS: MESALAMINE 400 MG CAPDR PO SCH ×3 (09:39→22:01)
[2020-06-12] MEDS: SODIUM CHLORIDE 0.9% 10ML FLUSH IV SCH (10:41)
--- NOTE | 2020-06-12 11:07 | Hospitalist Progress Note ---
Date of Service June 12, 2020 Assessment & Plan (1) COVID-19: Presented with infectious encephalopathy and trouble with ambulation. Onset of symptoms was 06/01/2020. Tested positive for Covid on 06/03/2020. - S/p convalescent plasma on 06/09/2020 - Dexamethasone 6 mg daily x 10 days (Last day: 06/18/2020) - Continue remdesivir final dose (06/13) - Still requiring 3-5 L NC. - Patient was compliant on my interview, but not very willing to participate. (2) Weakness: Secondary to above. Did poorly with PT. - PT/OT; likely CM for rehab (3) Altered mental state: Suspected infective/metabolic encephalopathy secondary to dehydration and COVID-19. - Improving (4) Ulcerative colitis: No indication of flare at this time. - Continue mesalamine 800mg PO TID (5) DVT prophylaxis: Lovenox 40mg SQ BID Admission and Anticipated Discharge Date Admission Date: June 09, 2020 Subjective Patient is quite tired and really only answers yes/no questions for me. However, he does follow commands and answer appropriately. Reports no fevers/chills, chest pain, shortness of breath, abdominal pain, nausea, or vomiting. Physical Exam Constitutional: WD/WN, vitals as above Eyes: EOM intact bilaterally; no conjunctival abnormality ENMT: external ear and nose normal, oropharynx normal Neck: trachea midline, no thyromegaly normal visual inspection Respiratory: normal respiratory effort, lungs clear to auscultation no respiratory distress Cardiovascular: RRR, no murmur, no edema Gastrointestinal (Abdomen): Inspection/Auscultation: abdomen normal to inspection; abdomen not distended Musculoskeletal: no cyanosis or clubbing, extremities motor strength 5/5 Skin: no rashes, warm and dry Neurologic: moves all extremities and awake Psychiatric: Orientation: alert, oriented to person and cooperative Results & Data Results & Data ([facility]) Vital Signs (Past 12 Hours) Vital Signs Temp Pulse Pulse Resp BP Pulse Ox 06/12/20 08:42 37.8 C H 70 20 125/73 89 L 06/12/20 07:56 59 L 06/12/20 04:00 36.7 C 66 17 131/59 L 93 06/11/20 23:52 36.7 C 58 L 17 126/81 93 PG Care Time/CCT Total # of Minutes Spent Total Time Spent with Patient: Total time spent is greater than 50% in coordination of care (as documented) at patient's floor/unit and/or counseling patient: Coding Level of Care Code 84938 Subseq Hosp Care Lvl 2 Diagnoses COVID-19 U07.1 Weakness R53.1 Altered mental state R41.82 Ulcerative colitis K51.90 DVT prophylaxis Z29.9
[2020-06-13] MEDS: REMDESIVIR 100 MG in SODIUM CHLORIDE 0.9% 230 ML IV SCH (08:38)
[2020-06-13] MEDS: DEXAMETHASONE SOD PHOSPHATE 6 MG in SYRINGE 0 ML IV SCH (08:38)
[2020-06-13] MEDS: MESALAMINE 400 MG CAPDR PO SCH ×2 (08:38→13:51)
[2020-06-13] MEDS: ENOXAPARIN INJ 40 MG/0.4 ML SYR SQ SCH (08:39)
[2020-06-13] MEDS: CHOLECALCIFEROL 1,000 UNITS 25 MCG TAB PO SCH (08:40)
[2020-06-13] MEDS: SODIUM CHLORIDE 0.9% 10ML FLUSH IV SCH (10:20)
--- NOTE | 2020-06-13 16:46 | Discharge Summary ---
Date of Service June 13, 2020 Admission HPI Per Admitting Provider Todd Jett is a 80 year old male with known diagnosis of COVID-19 who presents to the ER with altered mental state and worsening ambulation. Unable to get any history from patient but does note he is not in any pain. Following simple one step commands but disorientated x3. Baseline obtained from his . He is ambulatory without aids. Able to have full meaningful conversations - currently very far off his baseline mentation. He was seen in the ER 3 days previously for shortness of breath, nausea and fatigue. Onset of symptoms per PCP note June 01 (8 days previously). During his last ER visit the patient did not wish to stay in hospital and was not significantly hypoxic. He improved his mentation substantially with 1L NSS bolus therefore was subsequently discharged home. Unfortunately he continued to significantly decline at home and became much more generally confused and weak. No one sided weakness. His reports he has not been drinking or eating much at all in the last 2 days. Naus ea is somewhat better but her biggest concern is he now cannot ambulate and is not answering questions appropriately - mainly just moaning and groaning. Discussed interventions with his over the phone including dexamethasone, convalescent plasma and remdesivir which she agreed to all three of these interventions. Principal Diagnosis Covid-19 Discharge Exam Constitutional WD/WN, vitals as above Eyes EOM intact bilaterally; no conjunctival abnormality ENMT external ear and nose normal, oropharynx normal Neck trachea midline, no thyromegaly normal visual inspection Respiratory normal respiratory effort, lungs clear to auscultation no respiratory distress Cardiovascular RRR, no murmur, no edema Gastrointestinal (Abdomen) Inspection/Auscultation: abdomen normal to inspection; abdomen not distended Musculoskeletal no cyanosis or clubbing, extremities motor strength 5/5 Skin no rashes, warm and dry Neurologic moves all extremities and awake Psychiatric Orientation: alert, oriented to person and cooperative Discharge Data Allergies Allergy/AdvReac Type Severity Reaction Status Date / Time No Known Allergies Allergy Verified 06/09/20 14:08 Consultations 06/09/20 13:26 ED Decision to Admit Stat Ordered Studies 06/09/20 12:20 CT head/brain wo con Stat Hospital Course (1) COVID-19: Presented with infectious encephalopathy and trouble with ambulation. Onset of symptoms was 06/01/2020. Tested positive for Covid on 06/03/2020. - S/p convalescent plasma on 06/09/2020 - Dexamethasone 6 mg daily x 10 days (Last day: 06/18/2020) - Finished remdesivir final dose (06/13) - On discharge, still required 3L NC, but felt well overall and wanted to go home. He did ok with PT/OT. He will be discharged on 5 more days of dexamethasone. I discussed with his his status and how to keep him hydrated at home and that he could come back with any worsening status. (2) Weakness: Secondary to above. Did poorly with PT. - PT/OT -> Home (3) Altered mental state: Suspected infective/metabolic encephalopathy secondary to dehydration and COVID-19. - By discharge, AAOx3, able to discuss his profession, recent political events, and his life. Likely not at his baseline, but clearly improving. (4) Ulcerative colitis: No indication of flare at this time. - Continue mesalamine 800mg PO TID (5) DVT prophylaxis: Lovenox 40mg SQ BID Total Time Total Time Spent Total Time Spent (In Minutes): 35 Discharge Plan Discharge Items Patient Disposition: Home - Self-Care Reason For Visit: COVID +, PNEUMONIA,HYPOXIA Discharge Diagnosis: Covid pneumonia Activity: Resume your previous activity Non-emergency contact: Primary Care Provider Call non-emergency contact if: your symptoms worsen and your temperature is above 101 Follow-up/Referrals: Anay Barrios MD [Primary Care Provider] - Diet: Regular Addtl Attending Provider Instructions: You were admitted with Covid which caused some breathing issues as well as confusion. Fortunately, your confusion is improving and your breathing has been stable. We are sending you home on 3 liters of oxygen. Hopefully, you will only need this for a few weeks as your lungs heal. You are thinking more clearly now and also your breathing has stabilized and is recovering. Please take the steroids for the next 5 days in the morning. Your next dose will be tomorrow morning around 9am. To stay hydrated, try to drink PediaLyte which has electrolytes to help your body retain the fluid and stay hydrated. If you have more trouble breathing or more confusion, please call your PCP or return to the hospital. Pending Studies at Discharge: No Stand-Alone Forms: My [facility], Smoking Cessation Medications and DC Order Prescriptions: New dexamethasone 6 mg tablet 6 mg PO DAILY Qty: 5 RF: 0 Continued acetaminophen [Tylenol Extra Strength] 500 mg Tablet 1,000 mg PO Q6H PRN (Reason: Pain) RF: 0 Metamucil 3.4 gram/5.4 gram Powder 1 tbsp PO DAILY RF: 0 Zinc Gummies 1 tab PO DAILY RF: 0 mesalamine [Delzicol] 400 mg Capsule (With Del Rel Tablets) 800 mg PO TID RF: 0 cholecalciferol (vitamin D3) [Vitamin D3] 25 mcg (1,000 unit) Tablet 25 mcg PO QAM RF: 0 sildenafil 100 mg tablet 100 mg PO DIRECTED PRN (Reason: sexual activity) RF: 0 ondansetron 4 mg tablet,disintegrating 4 mg PO Q8H PRN (Reason: nausea and vomiting) Qty: 12 RF: 0 Discharge Orders: Discharge Order (Routine); Ordered 06/13/20 Ordered By: Mario Woodruff Admission Data Admit Date/Time: 06/09/20 13:45 Attending Provider: Mario Woodruff Admit Provider: Ever Manning Primary Care Provider: Anay Barrios Other Providers: Mario Woodruff Other Interventions: Discharge Summary Assessment (RN) Last Done: 06/13/20 15:40 Coding Level of Care Code D/C Day Management >30 mins Diagnoses COVID-19 U07.1 Weakness R53.1 Altered mental state R41.82 Ulcerative colitis K51.90 DVT prophylaxis Z29.9
--- NOTE | 2020-06-23 09:20 | Coding Query ---
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 Please assist us with the question(s) below: Coding Question(s): The diagnosis(es) below was documented in the 06/11/20 Progress Note, then subsequently fell off all further documentation. Please indicate if it is still a possible diagnosis or ruled out. Physician's Response(s): Covid viral pneumonia (documented on addendum on 06/11/20 Progress Note) ( x ) Diagnosed and POA ( ) Diagnosed and not POA ( ) Ruled out ( ) Other (please specify) ) MTDD
== END 2020-06-13 17:38 | disposition home or self-care (01) | DRG 177 ==
LOC: ED 11:58 → SUATTDRO 13:45 → 2E 13:45

== ENCOUNTER 2020-06-15 06:03 | Inpatient (IN) ==
--- NOTE | 2020-06-15 07:08 | XRay Report ---
XR chest 1V portable HISTORY: 80 years-old Male SEPSIS acute sepsis with shortness of breath COMPARISON: Chest radiograph 06/11/2020, CTA chest 06/06/2020 TECHNIQUE: Portable AP view of the chest FINDINGS: Cardiomediastinal and hilar silhouettes are unchanged. Mild right hemidiaphragmatic elevation. Mild e mphysema. Progressively worsened interstitial opacities of the peripheral lungs which are noted in a right basilar predominant distribution. No pneumothorax, large pleural effusion or overt pulmonary ed carlos. Degenerative changes of the spine and left shoulder. Reverse right shoulder total joint arthropl asty. IMPRESSION: Progressively worsened peripheral predominant reticular opacities are suggestive of an at ypical infectious or inflammatory pneumonitis, likely viral pneumonia in this COVID Positive patient. ACT 112: Negative or not required by law. The above report was generated using voice recognition software. It may contain grammatical, syntax o r spelling errors. Electronically signed by: Gideon Goodrich M.D. 06/15/2020 7:07 AM
[2020-06-15] MEDS ORDERED: ACETAMINOPHEN 1,000 MG/100 ML VIAL IV STA (07:12)
[2020-06-15] MEDS ORDERED: DEXAMETHASONE SOD INJ 10 MG/ML VIAL IV ONE (07:12)
[2020-06-15] MEDS ORDERED: ALBUTEROL HFA 8 GM INHALER INH ONE (07:12)
[2020-06-15 07:29] LABS: Basophils # (auto) 0.01 K/uL (0-0.2); Basophils % (auto) 0.1 %; Hematocrit (blood only) 44.8 % (42-52); Hemoglobin 15.3 g/dL (14.0-18.0); Immature Granulocytes # (auto) 0.06 K/uL (0.00-0.02); Immature Granulocytes % (auto) 0.6 %; Lymphocytes # (auto) 0.79 K/uL (1.2-3.4); Lymphocytes % (auto) 8.2 %; Mean Corpuscular Hemoglobin 30.1 pg (25-34); Mean Corpuscular Hgb Conc 34.2 g/dL (32-36); Mean Platelet Volume 10.8 fL (7.4-10.4); Monocytes # (auto) 0.49 K/uL (0.11-0.59); Monocytes % (auto) 5.1 %; Platelet Count 225 K/uL (130-400); RDW Coefficient of Variation 13.3 % (11.5-14.5); RDW Standard Deviation 43.1 fL (36.4-46.3); Red Blood Count 5.09 M/uL (4.7-6.1); White Blood Count 9.65 K/uL (4.8-10.8)
[2020-06-15 07:41] LABS: Influenza A virus by PCR Negative (Neg); Influenza B virus by PCR Negative (Neg); RSV by PCR Negative (Neg)
[2020-06-15 07:50] LABS: INR 1.3 (0.9-1.1); Partial Thromboplastin Time 26.8 Seconds (21.0-31.0); Prothrombin Time 13.2 Seconds (9.0-12.0)
[2020-06-15 07:51] LABS: SARS CoV2 RNA(COVID-19) InHosp POSITIVE (Negative)
[2020-06-15 07:53] LABS: Albumin Level 2.8 gm/dl (3.4-5.0); BUN Creatinine Ratio 31.8 (10-20); Calcium 8.5 mg/dl (8.5-10.1); Creatinine Clr Calc Pharmacy 67.8 ml/min; Est GFR (African American) 96.1; Est GFR (Non-African American) 82.9; Magnesium 2.4 mg/dl (1.8-2.4); Potassium 4.1 mmol/L (3.5-5.1)
--- NOTE | 2020-06-15 07:55 | History & Physical Report ---
Date of Service June 15, 2020 Assessment & Plan (1) COVID-19: Patient returns with acute hypoxic respiratory failure secondary to COVID- 19. Concern for secondary bacterial pneumonia as he was recently was in the hospital now was progressed. He is already completed remdesivir convalescent plasma and is currently on his dexamethasone dosing. There is a record of some COPD in the chart although he is not particularly hyperinflated on his chest x- rays. Patient being admitted for oxygen support continue dexamethasone (2) Elevated troponin: Patient elevated troponin on presentation not associated with any chest pain. Patient has no acute EKG changes however this is a new finding. Patient be transferred to telemetry Lovenox will be escalated to 1 mg/kg. Hospital be given. serial troponins be ordered and aspirin will be given unclear how this plays into his altered mental status or encephalopathy on presentation (3) Altered mental state: Patient here with encephalopathy undetermined whether from Covid or other metabolic source patient will have cultures of urine and blood we will treat for bacterial pneumonia at this time he will remain on airborne precautions as he still within the 2-week period from his initial diagnosis (4) Ulcerative colitis: Patient on mesalamine for ulcerative colitis (5) DVT prophylaxis: Covid appropriate DVT prophylaxis will be ordered History of Present Illness Primary Care Provider: Anay Barrios MD COVID-19: Presented with infectious encephalopathy and trouble with ambulation. Onset of symptoms was 06/01/2020. Tested positive for Covid on 06/03/2020. - S/p convalescent plasma on 06/09/2020 - Dexamethasone 6 mg daily x 10 days (Last day: 06/18/2020) - remdesivir final dose (06/13), pts typically receive 5 doses , on on admission and then over the next 4 days, his doses were 06/09,25, 26, 27 28 Pt wanted to go home as encephalopathy had improved, did go home on 06/13, now returns with confusion and worsened hypoxia, x ray with some progressive ch anges, will re admit for failing outpt care and may now be considered for rehab Allergies Allergy/AdvReac Type Severity Reaction Status Date / Time No Known Allergies Allergy Verified 06/15/20 06:24 Home Medications Medication Instructions Recorded Confirmed Type mesalamine [Delzicol] 800 mg PO TID 03/09/18 06/15/20 History cholecalciferol (vitamin D3) 25 mcg PO QAM 06/06/20 06/15/20 History [Vitamin D3] ondansetron 4 mg PO Q8H PRN #12 tab 06/06/20 06/15/20 Rx sildenafil 100 mg PO DIRECTED PRN 06/06/20 06/15/20 History Metamucil 1 tbsp PO DAILY 06/09/20 06/15/20 History Zinc Gummies 1 tab PO DAILY 06/09/20 06/15/20 History acetaminophen [Tylenol Extra 1,000 mg PO Q6H PRN 06/09/20 06/15/20 History Strength] dexamethasone 6 mg PO DAILY #5 tab 06/13/20 06/15/20 Rx Past Med/Surg History Medical History BPH (benign prostatic hyperplasia) Emphysema, unspecified Osteoarthritis PVC's (premature ventricular contractions) Ulcerative colitis Surgical History History of appendectomy History of cataract surgery B/L History of surgical removal of ganglion cyst L shoulder History of tonsillectomy History of total hip arthroplasty LEFT Social History Smoking Status: Current some day smoker Cigarettes Per Day: 10 PER DAY; Second Hand Exposure: No; Do You Dip or Chew Tobacco: No; Tobacco Cessation Education Requested by Patient: No Hx Alcohol Use: No Hx Substance Use: No Preferred Language: Nepalese Communication Ability: Effective Marketing Communications Assistant Required: No Beliefs That Will Affect Care: None marital status: Current Living Situation: Spouse Other Information That Helps Us Care for You: No Feels Safe at Home: Yes Safety Concerns: Feels Safe At This Time Assistive Devices: Oxygen - Continuous Review of Systems Review of Systems: Moderate distress and fatigue no headache, blurry or double vision no speech or swallowing issues no chest pain, pressure or palpitations baseline increased shortness of breath, non productive cough no abdominal pain, nausea or vomiting, denies diarrhea no dysuria, hematuria or frequency no focal joint pain or swelling no back pain, CVA tenderness or radicular pain no bruising, bleeding or rashes no focal signs of weakness or numbness or altered sensation no complaints of anxiety or depression. Physical Exam Physical Exam: The patient appeared chronically ill and weakened. Vital signs as documented. Head exam is normocephalic atraumatic no scleral icterus Neck is without JVD, thyromegaly, or carotid bruits. Lungs are coarse bilaterally, basilar rales, R>L Cardiac exam, Rhythm is regular.. No murmurs, rubs or gallops. Abdominal exam reveals normal bowel sounds, soft non tender, no masses Extremities are nonedematous and both pedal pulses are present Neurologic exam is alert and oriented, no focal loss of strength or sensation Skin is without bruises or rashes Psychologically is without concerns for anxiety or depression. Results & Data Results & Data ([facility]) Vital Signs (Past 12 Hours) Vital Signs Temp Pulse Resp BP Pulse Ox 06/15/20 06:22 92 06/15/20 05:56 98.4 F 62 18 157/81 H 91 PG Care Time/CCT Total # of Minutes Spent Total Time Spent with Patient: Total time spent is greater than 50% in coordination of care (as documented) at patient's floor/unit and/or counseling patient: Coding Level of Care Code 08494 Initial Inpt Care Lvl 3 Diagnoses COVID-19 U07.1 Elevated troponin R77.8 Altered mental state R41.82 Ulcerative colitis K51.90 DVT prophylaxis Z29.9
[2020-06-15 08:04] LABS: Albumin Globulin Ratio 0.7 (0.9-2); Bilirubin,Total 1.7 mg/dl (0.2-1); Ferritin 1024.9 ng/ml (8-388); Globulin 3.8 gm/dl (2.5-4.0); Total Protein 6.6 gm/dl (6.4-8.2); Troponin I 0.83 ng/ml (0-0.045)
[2020-06-15] MEDS ORDERED: ACETAMINOPHEN 500 MG TAB PO PRN (10:25)
[2020-06-15] MEDS ORDERED: ONDANSETRON INJ 2 MG/ML 2 ML VIAL IV PRN (10:25)
[2020-06-15] MEDS ORDERED: ONDANSETRON 4 MG OD TAB PO PRN (10:37)
--- NOTE | 2020-06-15 11:08 | Electrocardiogram Report ---
Test Reason : Blood Pressure : / mmHG Vent. Rate : 057 BPM Atrial Rate : 057 BPM P-R Int : 136 ms QRS Dur : 078 ms QT Int : 426 ms P-R-T Axes : 045 050 066 degrees QTc Int : 414 ms Poor data quality, interpretation may be adversely affected Sinus bradycardia Borderline ECG When compared with ECG of 09-JUN-2020 12:15, No significant change was found Confirmed by Constantine Vazquez ([id number]) on 06/15/2020 11:07:31 AM Referred By: REFERRED SELF Confirmed By:Bryce Vazquez
[2020-06-15] MEDS: MESALAMINE 400 MG CAPDR PO SCH ×3 (11:47→23:17)
[2020-06-15] MEDS: ENOXAPARIN INJ 40 MG/0.4 ML SYR SQ SCH ×2 (11:47→23:34)
[2020-06-15] MEDS: PSYLLIUM 58.6% POWDER PACKET PO SCH (11:48)
[2020-06-15] MEDS: CHOLECALCIFEROL 1,000 UNITS 25 MCG TAB PO SCH (11:48)
[2020-06-15] MEDS: CEFEPIME 2,000 MG in SYRINGE 0 ML IV SCH ×2 (13:32→23:17)
[2020-06-15 19:48] LABS: Base Excess ABG -1.7 mEq/L (-9-1.8); HCO3 ABG 19 mmol/L (19-24); PCO2 ABG 25 mmHg (35-46); PO2 ABG 50 mmHg (80-95)
[2020-06-15 19:52] LABS: Allen Test Pos (Pos)
[2020-06-15 19:53] LABS: pH ABG 7.51 (7.35-7.45)
[2020-06-15] MEDS ORDERED: NITROGLYCERIN SL 0.4 MG/TAB TAB SL PRN (23:14)
[2020-06-15] MEDS ORDERED: MoRPHine SULFATE 2 MG/ML CARP IV PRN (23:14)
[2020-06-16] MEDS: ENOXAPARIN INJ 60 MG/0.6 ML SYR SQ SCH ×2 (01:25→11:28)
[2020-06-16] MEDS: CEFEPIME 2,000 MG in SYRINGE 0 ML IV SCH ×3 (06:29→21:46)
--- NOTE | 2020-06-16 08:56 | Hospitalist Progress Note ---
Date of Service June 16, 2020 Assessment & Plan (1) COVID-19: Patient returns with acute hypoxic respiratory failure secondary to COVID- 19. Concern for secondary bacterial pneumonia as he was recently was in the hospital now was progressed. He is already completed remdesivir convalescent plasma and is currently on his dexamethasone dosing. There is a record of some COPD in the chart although he is not particularly hyperinflated on his chest x- rays. Patient being admitted for oxygen support continue dexamethasone (2) Elevated troponin: Patient elevated troponin on presentation not associated with any chest pain. Patient has no acute EKG changes however this is a new finding. Patient was transferred to telemetry Lovenox continues be escalated to 1 mg/kg. the second troponin was slightlly lower, aspirin will be given unclear how this plays into his altered mental status or encephalopathy on presentation. Heart rate remains controlled without B juliet, will start atorvostatin once covid illness clears. The pt will have Echo and likely stress in the future (3) Altered mental state: Patient here with encephalopathy undetermined whether from Covid or other metabolic source patient will have cultures of urine and blood we will treat for bacterial pneumonia at this time he will remain on airborne precautions as he still within the 2-week period from his initial diagnosis. he states that he wants to , not eating and drinking very well will start some ivf, try to encourage good sleep with some seroquel one dose will check st cath urine for infection for metabolic encephalopathy (4) Ulcerative colitis: Patient on mesalamine for ulcerative colitis (5) DVT prophylaxis: Covid appropriate DVT prophylaxis will be ordered Admission and Anticipated Discharge Date Admission Date: June 15, 2020 daughter jeff [phone], updated family Review of Systems Review of Systems: Moderate distress and fatigue no headache, blurry or double vision no speech or swallowing issues no chest pain, pressure or palpitations baseline increased shortness of breath, non productive cough no abdominal pain, nausea or vomiting, denies diarrhea no dysuria, hematuria or frequency no focal joint pain or swelling no back pain, CVA tenderness or radicular pain no bruising, bleeding or rashes no focal signs of weakness or numbness or altered sensation no complaints of anxiety or depression. Physical Exam Physical Exam: The patient appeared chronically ill and weakened. Vital signs as documented. Head exam is normocephalic atraumatic no scleral icterus Neck is without JVD, thyromegaly, or carotid bruits. Lungs are coarse bilaterally, basilar rales, R>L Cardiac exam, Rhythm is regular.. No murmurs, rubs or gallops. Abdominal exam reveals normal bowel sounds, soft non tender, no masses Extremities are nonedematous and both pedal pulses are present Neurologic exam is alert and oriented, no focal loss of strength or sensation Skin is without bruises or rashes Psychologically is without concerns for anxiety or depression. Results & Data Results & Data ([facility]) Vital Signs (Past 12 Hours) Vital Signs Temp Pulse Resp BP BP Pulse Ox 06/16/20 08:10 97.7 F 63 20 129/61 97 06/16/20 04:03 98.6 F 61 16 143/65 H 92 06/15/20 23:14 97.5 F L 62 20 152/79 H 99 06/15/20 21:22 97.3 F L 72 22 166/76 H 90 PG Care Time/CCT Total # of Minutes Spent Total Time Spent with Patient: Total time spent is greater than 50% in coordination of care (as documented) at patient's floor/unit and/or counseling patient: Coding Level of Care Code 34957 Subseq Hosp Care Lvl 3 Diagnoses COVID-19 U07.1 Elevated troponin R77.8 Altered mental state R41.82 Ulcerative colitis K51.90 DVT prophylaxis Z29.9
[2020-06-16] MEDS ORDERED: ASPIRIN 81 MG CHEW PO SCH (09:00)
[2020-06-16 09:59] LABS: BUN Creatinine Ratio 32.4 (10-20); Calcium 8.5 mg/dl (8.5-10.1); Creatinine Clr Calc Pharmacy 68.1 ml/min; Est GFR (African American) 98.5; Magnesium 2.4 mg/dl (1.8-2.4); Potassium 4.1 mmol/L (3.5-5.1)
[2020-06-16] MEDS: DEXAMETHASONE SOD PHOSPHATE 6 MG in SYRINGE 0 ML IV SCH (09:59)
[2020-06-16] MEDS: MESALAMINE 400 MG CAPDR PO SCH ×3 (09:59→21:01)
[2020-06-16] MEDS: PSYLLIUM 58.6% POWDER PACKET PO SCH (10:00)
[2020-06-16] MEDS: CHOLECALCIFEROL 1,000 UNITS 25 MCG TAB PO SCH (10:00)
[2020-06-16 10:01] LABS: Phosphorus 2.5 mg/dl (2.5-4.9)
[2020-06-16] MEDS: ASPIRIN 81 MG ECTAB PO SCH (10:36)
--- NOTE | 2020-06-16 10:51 | Emergency Department Note ---
History of Present Illness General Chief complaint: Shortness of Breath/Dyspnea Stated complaint: SHORT OF BREATH/DEHYDRATED Time Seen by Provider: 06/15/20 06:26 Source: patient, EMS, RN notes reviewed and old records reviewed Mode of arrival: EMS Limitations: altered mental status History of Present Illness Provider complaint: Shortness of breath Onset (ago): week(s) 2 Location: chest Radiation: non-radiation Relieved By: + immobilization and + rest Exacerbated By: + movement Associated symptoms: + confusion, + fever/chills, + malaise and + shortness of breath; no chest pain Treatments prior to arrival: other (Increased Oxygen) This is a 80-year-old male who reports to the emergency department requiring increased oxygen. Patient recently was admitted to [facility] with a COVID- 19 pneumonia diagnosis he was discharged home on 3 L of oxygen after completing courses of remdesivir as well as convalescent plasma. This morning the patient became increasingly altered and is requiring more oxygen. He arrives via EMS with 6 L of oxygen. The patient himself is sleeping and when woken up appears very confused and immediately falls back to sleep. Home Medications Medication Instructions Recorded Confirmed Type mesalamine [Delzicol] 800 mg PO TID 03/09/18 06/15/20 History cholecalciferol (vitamin D3) 25 mcg PO QAM 06/06/20 06/15/20 History [Vitamin D3] ondansetron 4 mg PO Q8H PRN #12 tab 06/06/20 06/15/20 Rx sildenafil 100 mg PO DIRECTED PRN 06/06/20 06/15/20 History Metamucil 1 tbsp PO DAILY 06/09/20 06/15/20 History Zinc Gummies 1 tab PO DAILY 06/09/20 06/15/20 History acetaminophen [Tylenol Extra 1,000 mg PO Q6H PRN 06/09/20 06/15/20 History Strength] dexamethasone 6 mg PO DAILY #5 tab 06/13/20 06/15/20 Rx Allergies Allergy/AdvReac Type Severity Reaction Status Date / Time No Known Allergies Allergy Verified 06/15/20 06:24 Past Med/Surg History Medical History BPH (benign prostatic hyperplasia) Emphysema, unspecified Osteoarthritis PVC's (premature ventricular contractions) Ulcerative colitis Surgical History History of appendectomy History of cataract surgery B/L History of surgical removal of ganglion cyst L shoulder History of tonsillectomy History of total hip arthroplasty LEFT Social History Smoking Status: Current some day smoker Cigarettes Per Day: 10 PER DAY; Second Hand Exposure: No; Do You Dip or Chew Tobacco: No; Tobacco Cessation Education Requested by Patient: No Hx Alcohol Use: No Hx Substance Use: No Preferred Language: Citizen Of The [place] Communication Ability: Effective [employer] 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 GENERAL - 80-year-old male appearing stated age who is in no acute distress. Falls asleep on exam, appears confused when woken SKIN - Without rashes. HEAD - NC/AT. EYES - PERRL with EOMI bilaterally. Sclera anicteric. Palpebral conjunctiva pink and moist with no injection noted. EARS - No deformities of external structures noted on gross examination bilaterally. No pain elicited with palpation of the tragus bilaterally. External auditory canals without discharge or otorrhea. Tympanic membranes pearly leonard without retraction or bulging. No fluid or purulent material visualized behind the TM. Handle of malleus, umbo, cone of light, pars tensa/flaccid all easily visualized. NOSE - Midline and without cyanosis. No epistaxis or purulent drainage noted. Septum midline without deviation or septal hematoma noted. MOUTH/OROPHARYNX - Without perioral cyanosis. Buccal mucosa pink and moist and without leukoplakia. Tongue midline with equal elevation of palate bilaterally. No tonsillar hypertrophy, erythema, or exudates noted. dentition noted. NECK - Neck with FROM. Supple to palpation. lymphadenopathy noted. No nuchal rigidity. LUNGS - Chest wall symmetric without accessory muscle use, intercostals retractions, or central cyanosis. Normal vesicular breath sounds CTA B/L. No wheezes, rales, or rhonchi appreciated. CARDIAC - RRR with S1/S2. No murmur, rubs, or gallops appreciated. ABDOMEN - Abdominal contour without pulsations or visible masses. BS normoactive all four quadrants. No tenderness, palpable masses, hepatosplenomegaly, or ascites noted. EXTREMITIES - No clubbing or peripheral cyanosis. No pretibial edema present. +3/5 radial, posterior tibial, and dorsalis pedis pulses palpated throughout. +5/5 strength noted in UE/LE bilaterally. Course Administered Medications Aspirin (Aspirin 81 Mg Ectab) 81 mg PO QAM [facility] Stop: 07/16/20 08:59 Last Admin: 06/16/20 10:36 Dose: 81 mg Documented by: [id number] Enoxaparin Sodium (Enoxaparin Inj 60 Mg/0.6 Ml Syr) 60 mg SQ Q12H [facility] Stop: 07/16/20 00:00 Last Admin: 06/16/20 01:25 Dose: 60 mg Documented by: [id number] Cefepime HCl 2,000 mg/ Syringe 20 mls @ 5 mls/min IV Q8 [facility]; Protocol Stop: 06/22/20 13:59 Last Admin: 06/16/20 06:29 Dose: 5 mls/min Documented by: [id number] Admin: 06/15/20 23:17 Dose: 5 mls/min Documented by: [id number] Admin: 06/15/20 13:32 Dose: 5 mls/min Documented by: [id number] Dexamethasone Sodium Phosphate (6 mg/ Syringe) 1.5 mls @ 1 mls/min IV DAILY [facility] Stop: 06/25/20 08:59 Last Admin: 06/16/20 09:59 Dose: 1 mls/min Documented by: [id number] Mesalamine (Mesalamine 400 Mg Capdr) 800 mg PO TID [facility] Stop: 07/15/20 10:24 Last Admin: 06/16/20 09:59 Dose: 800 mg Documented by: [id number] Admin: 06/15/20 23:17 Dose: 800 mg Documented by: [id number] Admin: 06/15/20 13:32 Dose: 800 mg Documented by: [id number] Admin: 06/15/20 11:47 Dose: 800 mg Documented by: [id number] Psyllium Hydrophilic Mucilloid (Psyllium 58.6% Powder Packet) 1 pkt PO DAILY [facility] Stop: 07/15/20 11:29 Last Admin: 06/16/20 10:00 Dose: 1 pkt Documented by: [id number] Admin: 06/15/20 11:48 Dose: 1 pkt Documented by: [id number] Vitamin D (Cholecalciferol 1,000 Units 25 Mcg Tab) 1,000 units PO QAM [facility] Stop: 07/15/20 11:29 Last Admin: 06/16/20 10:00 Dose: 1,000 units Documented by: [id number] Admin: 06/15/20 11:48 Dose: 1,000 units Documented by: [id number] Discontinued Medications Albuterol (Albuterol Hfa 8 Gm Inhaler) 2 puffs INH NOW ONE Stop: 06/15/20 07:13 Last Admin: 06/15/20 07:56 Dose: 2 puffs Documented by: [id number] Dexamethasone (Dexamethasone Sod Inj 10 Mg/Ml Vial) 6 mg IV NOW ONE Stop: 06/15/20 07:13 Last Admin: 06/15/20 07:56 Dose: 6 mg Documented by: [id number] Enoxaparin Sodium (Enoxaparin Inj 40 Mg/0.4 Ml Syr) 40 mg SQ 1000,2200 [facility] Stop: 07/15/20 10:59 Last Admin: 06/15/20 23:34 Dose: Not Given Documented by: [id number] Admin: 06/15/20 11:47 Dose: 40 mg Documented by: [id number] Acetaminophen (Ofirmev) 1,000 mg in 100 mls @ 400 mls/hr IV NOW STA Stop: 06/15/20 07:26 Last Infusion: 06/15/20 08:15 Dose: 0 mls/hr Documented by: [id number] Admin: 06/15/20 07:56 Dose: 400 mls/hr Documented by: [id number] Critical Care Time I have personally spent greater than 30 minutes of critical care time in the direct management of this patient. This includes bedside care, interpretation of diagnostic studies, and testing, discussion with consultants, patient, and family members, and other required patient management activities. This 30 m inutes is in excess of all separately billable procedures. Medical Decision Making Differential Diagnosis Reactive airway disease, pneumonia, pneumothorax, COPD, CHF, infections, cardiac ischemia, pulmonary embolism, musculoskeletal, gastrointestinal, as well as other pathologies. Medical Records Attestation: I reviewed the patient's medical records. Home Medications Current Medication List: was personally reviewed by me Laboratory Data Attestation: I reviewed the patient's lab results. Result diagrams: 06/15/20 07:12 06/16/20 09:04 Lab Results 06/15/20 06/15/20 06/15/20 Range/Units 06:47 06:47 07:12 WBC 9.65 (4.8-10.8) K/uL RBC 5.09 (4.7-6.1) M/uL Hgb 15.3 (14.0-18.0) g/dL Hct 44.8 (42-52) % MCV 88.0 (80-100) fL MCH 30.1 (25-34) pg MCHC 34.2 (32-36) g/dL RDW Std Deviation 43.1 (36.4-46.3) fL RDW Coeff of Kathrin 13.3 (11.5-14.5) % Plt Count 225 (130-400) K/uL MPV 10.8 H (7.4-10.4) fL Immature Gran % (Auto) 0.6 % Neut % (Auto) 86.0 % Lymph % (Auto) 8.2 % [place] % (Auto) 5.1 % Eos % (Auto) 0.0 % Baso % (Auto) 0.1 % Neut # (Auto) 8.30 H (1.4-6.5) K/uL Lymph # (Auto) 0.79 L (1.2-3.4) K/uL [place] # (Auto) 0.49 (0.11-0.59) K/uL Eos # (Auto) 0.00 (0-0.5) K/uL Baso # (Auto) 0.01 (0-0.2) K/uL Immature Gran # (Auto) 0.06 H (0.00-0.02) K/uL ESR (0-14) mm/hr PT (9.0-12.0) Seconds INR (0.9-1.1) APTT (21.0-31.0) Seconds PTT Ratio Sodium (136-145) mmol/L Potassium (3.5-5.1) mmol/L Chloride (98-107) mmol/L Carbon Dioxide (21-32) mmol/L Anion Gap (3-11) BUN (7-18) mg/dl Creatinine (0.6-1.4) mg/dl Est Cr Clr Drug Dosing ml/min Est GFR ( Amer) Est GFR (Non-Af Amer) BUN/Creatinine Ratio (10-20) Glucose (70-99) mg/dl Lactate (0.4-2.0) mmol/L Calcium (8.5-10.1) mg/dl Magnesium (1.8-2.4) mg/dl Ferritin (8-388) ng/ml Total Bilirubin (0.2-1) mg/dl AST (15-37) U/L ALT (12-78) U/L Alkaline Phosphatase (45-117) U/L Lactate Dehydrogenase (87-241) U/L Troponin I (0-0.045) ng/ml C-Reactive Protein (0-0.29) mg/dl Total Protein (6.4-8.2) gm/dl Albumin (3.4-5.0) gm/dl Globulin (2.5-4.0) gm/dl Albumin/Globulin Ratio (0.9-2) Procalcitonin (0-0.5) ng/ml COVID-19 Eval Order [facility]FluRsv at [facility] COVID-19 PCR POSITIVE A* (Negative) Influenza Type A (PCR) Negative (Neg) Influenza Type B (PCR) Negative (Neg) RSV (RT-PCR) Negative (Neg) Blood Type Antibody Screen 06/15/20 06/15/20 06/15/20 Range/Units 07:12 07:12 07:12 WBC (4.8-10.8) K/uL RBC (4.7-6.1) M/uL Hgb (14.0-18.0) g/dL Hct (42-52) % MCV (80-100) fL MCH (25-34) pg MCHC (32-36) g/dL RDW Std Deviation (36.4-46.3) fL RDW Coeff of Kathrin (11.5-14.5) % Plt Count (130-400) K/uL MPV (7.4-10.4) fL Immature Gran % (Auto) % Neut % (Auto) % Lymph % (Auto) % [place] % (Auto) % Eos % (Auto) % Baso % (Auto) % Neut # (Auto) (1.4-6.5) K/uL Lymph # (Auto) (1.2-3.4) K/uL [place] # (Auto) (0.11-0.59) K/uL Eos # (Auto) (0-0.5) K/uL Baso # (Auto) (0-0.2) K/uL Immature Gran # (Auto) (0.00-0.02) K/uL ESR 26 H (0-14) mm/hr PT 13.2 H (9.0-12.0) Seconds INR 1.3 H (0.9-1.1) APTT 26.8 (21.0-31.0) Seconds PTT Ratio 1.0 Sodium 137 (136-145) mmol/L Potassium 4.1 (3.5-5.1) mmol/L Chloride 105 (98-107) mmol/L Carbon Dioxide 25 (21-32) mmol/L Anion Gap 7.0 (3-11) BUN 27 H (7-18) mg/dl Creatinine 0.85 (0.6-1.4) mg/dl Est Cr Clr Drug Dosing 67.8 ml/min Est GFR ( Amer) 96.1 Est GFR (Non-Af Amer) 82.9 BUN/Creatinine Ratio 31.8 H (10-20) Glucose 94 (70-99) mg/dl Lactate (0.4-2.0) mmol/L Calcium 8.5 (8.5-10.1) mg/dl Magnesium 2.4 (1.8-2.4) mg/dl Ferritin 1024.9 H (8-388) ng/ml Total Bilirubin 1.7 H (0.2-1) mg/dl AST 57 H (15-37) U/L ALT 68 (12-78) U/L Alkaline Phosphatase 103 (45-117) U/L Lactate Dehydrogenase (87-241) U/L Troponin I 0.830 H* (0-0.045) ng/ml C-Reactive Protein 7.00 H (0-0.29) mg/dl Total Protein 6.6 (6.4-8.2) gm/dl Albumin 2.8 L (3.4-5.0) gm/dl Globulin 3.8 (2.5-4.0) gm/dl Albumin/Globulin Ratio 0.7 L (0.9-2) Procalcitonin (0-0.5) ng/ml COVID-19 Eval Order COVID-19 PCR (Negative) Influenza Type A (PCR) (Neg) Influenza Type B (PCR) (Neg) RSV (RT-PCR) (Neg) Blood Type Antibody Screen 06/15/20 06/15/20 06/15/20 Range/Units 07:12 07:12 07:12 WBC (4.8-10.8) K/uL RBC (4.7-6.1) M/uL Hgb (14.0-18.0) g/dL Hct (42-52) % MCV (80-100) fL MCH (25-34) pg MCHC (32-36) g/dL RDW Std Deviation (36.4-46.3) fL RDW Coeff of Kathrin (11.5-14.5) % Plt Count (130-400) K/uL MPV (7.4-10.4) fL Immature Gran % (Auto) % Neut % (Auto) % Lymph % (Auto) % [place] % (Auto) % Eos % (Auto) % Baso % (Auto) % Neut # (Auto) (1.4-6.5) K/uL Lymph # (Auto) (1.2-3.4) K/uL [place] # (Auto) (0.11-0.59) K/uL Eos # (Auto) (0-0.5) K/uL Baso # (Auto) (0-0.2) K/uL Immature Gran # (Auto) (0.00-0.02) K/uL ESR (0-14) mm/hr PT (9.0-12.0) Seconds INR (0.9-1.1) APTT (21.0-31.0) Seconds PTT Ratio Sodium (136-145) mmol/L Potassium (3.5-5.1) mmol/L Chloride (98-107) mmol/L Carbon Dioxide (21-32) mmol/L Anion Gap (3-11) BUN (7-18) mg/dl Creatinine (0.6-1.4) mg/dl Est Cr Clr Drug Dosing ml/min Est GFR ( Amer) Est GFR (Non-Af Amer) BUN/Creatinine Ratio (10-20) Glucose (70-99) mg/dl Lactate 1.6 (0.4-2.0) mmol/L Calcium (8.5-10.1) mg/dl Magnesium (1.8-2.4) mg/dl Ferritin (8-388) ng/ml Total Bilirubin (0.2-1) mg/dl AST (15-37) U/L ALT (12-78) U/L Alkaline Phosphatase (45-117) U/L Lactate Dehydrogenase (87-241) U/L Troponin I (0-0.045) ng/ml C-Reactive Protein (0-0.29) mg/dl Total Protein (6.4-8.2) gm/dl Albumin (3.4-5.0) gm/dl Globulin (2.5-4.0) gm/dl Albumin/Globulin Ratio (0.9-2) Procalcitonin 0.10 (0-0.5) ng/ml COVID-19 Eval Order COVID-19 PCR (Negative) Influenza Type A (PCR) (Neg) Influenza Type B (PCR) (Neg) RSV (RT-PCR) (Neg) Blood Type AB Positive Antibody Screen NEGATIVE 06/15/20 Range/Units 07:13 WBC (4.8-10.8) K/uL RBC (4.7-6.1) M/uL Hgb (14.0-18.0) g/dL Hct (42-52) % MCV (80-100) fL MCH (25-34) pg MCHC (32-36) g/dL RDW Std Deviation (36.4-46.3) fL RDW Coeff of Kathrin (11.5-14.5) % Plt Count (130-400) K/uL MPV (7.4-10.4) fL Immature Gran % (Auto) % Neut % (Auto) % Lymph % (Auto) % [place] % (Auto) % Eos % (Auto) % Baso % (Auto) % Neut # (Auto) (1.4-6.5) K/uL Lymph # (Auto) (1.2-3.4) K/uL [place] # (Auto) (0.11-0.59) K/uL Eos # (Auto) (0-0.5) K/uL Baso # (Auto) (0-0.2) K/uL Immature Gran # (Auto) (0.00-0.02) K/uL ESR (0-14) mm/hr PT (9.0-12.0) Seconds INR (0.9-1.1) APTT (21.0-31.0) Seconds PTT Ratio Sodium (136-145) mmol/L Potassium (3.5-5.1) mmol/L Chloride (98-107) mmol/L Carbon Dioxide (21-32) mmol/L Anion Gap (3-11) BUN (7-18) mg/dl Creatinine (0.6-1.4) mg/dl Est Cr Clr Drug Dosing ml/min Est GFR ( Amer) Est GFR (Non-Af Amer) BUN/Creatinine Ratio (10-20) Glucose (70-99) mg/dl Lactate (0.4-2.0) mmol/L Calcium (8.5-10.1) mg/dl Magnesium (1.8-2.4) mg/dl Ferritin (8-388) ng/ml Total Bilirubin (0.2-1) mg/dl AST (15-37) U/L ALT (12-78) U/L Alkaline Phosphatase (45-117) U/L Lactate Dehydrogenase 581 H (87-241) U/L Troponin I (0-0.045) ng/ml C-Reactive Protein (0-0.29) mg/dl Total Protein (6.4-8.2) gm/dl Albumin (3.4-5.0) gm/dl Globulin (2.5-4.0) gm/dl Albumin/Globulin Ratio (0.9-2) Procalcitonin (0-0.5) ng/ml COVID-19 Eval Order COVID-19 PCR (Negative) Influenza Type A (PCR) (Neg) Influenza Type B (PCR) (Neg) RSV (RT-PCR) (Neg) Blood Type Antibody Screen Imaging Data Radiologist's Impression: [facility], [phone] XRay Report Patient: ALCON PRADHAN Date: 06/15/20MR#: [id number] [facility] ID:[id number]: [facility] Zip: [place], [place] [address]Khp: 80Location: EDSex: MRoom/Bed:Att Phy:Diagnosis: SHORT OF BREATH/DEHYDRATEDPri Phy: Anay Barrios MDService Date: 06/15/20Fam Phy:Interpreting Phy: Kash GoodrichAdmit Phy: Ordering Phy: Parker Nogueira MD cc: ~ XR chest 1V portable HISTORY: 80 years-old Male SEPSIS acute sepsis with shortness of breath COMPARISON: Chest radiograph 06/11/2020, CTA chest 06/06/2020 TECHNIQUE: Portable AP view of the chest FINDINGS: Cardiomediastinal and hilar silhouettes are unchanged. Mild right hemidiaphragmatic elevation. Mild emphysema. Progressively worsened interstitial opacities of the peripheral lungs which are noted in a right basilar predominant distribution. No pneumothorax, large pleural effusion or overt pulmonary edema. Degenerative changes of the spine and left shoulder. Reverse right shoulder total joint arthroplasty. IMPRESSION: Progressively worsened peripheral predominant reticular opacities are suggestive of an atypical infectious or inflammatory pneumonitis, likely viral pneumonia in this COVID Positive patient. ACT 112: Negative or not required by law. The above report was generated using voice recognition software. It may contain grammatical, syntax or spelling errors. Electronically signed by: Gideon Goodrich M.D. 06/15/2020 7:07 AM Dictated: 06/15/20703Transcribed: 06/15/20703 ECG Data Attestation: I personally reviewed and interpreted this ECG as follows: Indication: + altered mental status Rate (beats per minute): 57 Rhythm: + sinus bradycardia ECG Intervals/blocks: + Normal QT-c (414) ECG [place]: + Normal ECG ST segments: no ST depression and no ST elevation Comparison ECG Date: from (06/09/2020) Change: no significant change MDM Narrative Patient was seen and evaluated as above in room C5. Review was performed of nursing notes and vital signs. I did review pertinent previous visits and patient history. After obtaining a thorough history and physical examination the above work up was performed. This is a 80-year-old male who presents the emergency department with increasing oxygen demand. Patient is acutely confused. He was started on Decadron here in the emergency department. He is positive for Covid and has Covid pneumonia. He was typed and screened. I did discuss the case with the hospitalist service who did agree to admit the patient. The patient was given Decadron here in the emergency department. An order was placed for continuous cardiac monitoring. The monitor shows a rate of 63 with Normal Sinus rhythm. I attest that I have personally reviewed the patient medication list. The patient was evaluated during a period of high volume and high acuity while the hospital was at overcapacity during the global COVID-19 pandemic, and that diagnosis was suspected/considered upon their initial presentation. Their evaluation, treatment and testing was consistent with current guidelines for patients who present with complaints or symptoms that may be related to COVID- 19. Impression & Plan Elevated troponin, Confusion, COVID-19, Altered mental state Discharge Plan Visit Data Chief Complaint: Shortness of Breath/Dyspnea Stated Complaint: SHORT OF BREATH/DEHYDRATED ED Provider: Parker Nogueira Discharge Problem: Elevated troponin, Confusion, COVID-19, Altered mental state Patient Disposition: Admitted As Inpatient Discharge Instructions Interventions: ED Discharge Assessment Last Done: 06/15/20 09:59 Discharge Problem: Altered mental state Qualifiers: Altered mental status type: unspecified Qualified Code(s): R41.82 - Altered mental status, unspecified
[2020-06-16] MEDS: LACTATED RINGER'S 1,000 ML IV SCH (19:04)
[2020-06-16] MEDS: QUEtiapine FUMARATE 25 MG TABLET PO SCH (21:00)
[2020-06-16] MEDS ORDERED: MIRTAZAPINE TAB 15 MG TAB PO SCH (21:00)
[2020-06-17] MEDS: ENOXAPARIN INJ 60 MG/0.6 ML SYR SQ SCH ×2 (01:05→13:09)
[2020-06-17] MEDS: CEFEPIME 2,000 MG in SYRINGE 0 ML IV SCH ×3 (06:31→20:58)
[2020-06-17 07:46] LABS: BUN Creatinine Ratio 34.3 (10-20); Calcium 8.8 mg/dl (8.5-10.1); Creatinine Clr Calc Pharmacy 58.7 ml/min; Est GFR (African American) 95.6; Est GFR (Non-African American) 82.5; Potassium 4.7 mmol/L (3.5-5.1)
[2020-06-17 07:53] LABS: Troponin I 0.766 ng/ml (0-0.045)
[2020-06-17] MEDS: PSYLLIUM 58.6% POWDER PACKET PO SCH (08:36)
[2020-06-17] MEDS: DEXAMETHASONE SOD PHOSPHATE 6 MG in SYRINGE 0 ML IV SCH (08:36)
[2020-06-17] MEDS: LACTATED RINGER'S 1,000 ML IV SCH ×2 (08:36→20:53)
[2020-06-17] MEDS: MESALAMINE 400 MG CAPDR PO SCH ×3 (08:37→20:54)
[2020-06-17] MEDS: CHOLECALCIFEROL 1,000 UNITS 25 MCG TAB PO SCH (08:37)
[2020-06-17] MEDS: ASPIRIN 81 MG ECTAB PO SCH (08:37)
--- NOTE | 2020-06-17 14:14 | Electrocardiogram Report ---
Test Reason : Blood Pressure : / mmHG Vent. Rate : 069 BPM Atrial Rate : 069 BPM P-R Int : 134 ms QRS Dur : 082 ms QT Int : 416 ms P-R-T Axes : 075 060 062 degrees QTc Int : 445 ms Normal sinus rhythm Possible Left atrial enlargement Nonspecific ST abnormality Abnormal ECG When compared with ECG of 15-JUN-2020 06:25, No significant change was found Confirmed by Constantine Vazquez ([id number]) on 06/17/2020 2:13:53 PM Referred By: REFERRED SELF Confirmed By:Bryce Vazquez
--- NOTE | 2020-06-17 16:07 | Hospitalist Progress Note ---
Date of Service June 17, 2020 Assessment & Plan (1) COVID-19: Patient returns with acute hypoxic respiratory failure secondary to COVID- 19. Concern for secondary bacterial pneumonia as he was recently was in the hospital He has already completed Remdesivir convalescent plasma and is currently on iv dexamethasone dosing. There is a record of some COPD in the chart although he is not particularly hyperinflated on his chest x-rays. Patient continues admission for oxygen support continue dexamethasone daughter Carol [phone], updated family (2) Elevated troponin: Patient elevated troponin on presentation not associated with any chest pain. Patient has no acute EKG changes however this is a new finding. Patient was transferred to telemetry Lovenox continues be escalated to 1 mg/kg. the second troponin was slightlly lower, aspirin will be given unclear how this plays into his altered mental status or encephalopathy on presentation. Heart rate remains controlled without B juliet, will start atorvostatin once covid illness clears. The pt will have Echo and likely stress in the future (3) Altered mental state: Patient here with encephalopathy undetermined whether from Covid or other metabolic source patient will have cultures of urine and blood we will treat for bacterial pneumonia at this time he will remain on airborne precautions as he still within the 2-week period from his initial diagnosis. he states that he wants to , not eating and drinking very well, continue ivf,he did have good sleep with seroquel, will try some melatonin hs pending st cath urine for infection for metabolic encephalopathy (4) Ulcerative colitis: Patient on mesalamine for ulcerative colitis (5) DVT prophylaxis: Covid appropriate DVT prophylaxis will be ordered Admission and Anticipated Discharge Date Admission Date: June 15, 2020 Review of Systems Review of Systems: Moderate distress and fatigue no headache, blurry or double vision no speech or swallowing issues no chest pain, pressure or palpitations baseline increased shortness of breath, non productive cough no abdominal pain, nausea or vomiting, denies diarrhea no dysuria, hematuria or frequency no focal joint pain or swelling no back pain, CVA tenderness or radicular pain no bruising, bleeding or rashes no focal signs of weakness or numbness or altered sensation no complaints of anxiety or depression. Physical Exam Physical Exam: The patient appeared chronically ill and weakened. Vital signs as documented. Head exam is normocephalic atraumatic no scleral icterus Neck is without JVD, thyromegaly, or carotid bruits. Lungs are coarse bilaterally, basilar rales, R>L Cardiac exam, Rhythm is regular.. No murmurs, rubs or gallops. Abdominal exam reveals normal bowel sounds, soft non tender, no masses Extremities are nonedematous and both pedal pulses are present Neurologic exam is alert and oriented, no focal loss of strength or sensation Skin is without bruises or rashes Psychologically is without concerns for anxiety or depression. Results & Data Results & Data ([facility]) Vital Signs (Past 12 Hours) Vital Signs Temp Pulse Pulse Pulse Resp BP BP 06/17/20 15:20 97.5 F L 61 16 159/74 H 06/17/20 11:16 97.7 F 66 18 186/82 H 06/17/20 08:00 62 06/17/20 07:36 98.1 F 67 16 174/84 H 06/17/20 05:16 98.1 F 60 14 146/70 H Pulse Ox 06/17/20 15:20 94 06/17/20 11:16 94 06/17/20 08:00 06/17/20 07:36 90 06/17/20 05:16 92 PG Care Time/CCT Total # of Minutes Spent Total Time Spent with Patient: Total time spent is greater than 50% in coord ination of care (as documented) at patient's floor/unit and/or counseling patient: Coding Level of Care Code 60257 Subseq Hosp Care Lvl 3 Diagnoses COVID-19 U07.1 Elevated troponin R77.8 Altered mental state R41.82 Altered mental status type: unspecified Ulcerative colitis K51.90 DVT prophylaxis Z29.9 (1) Altered mental state Altered mental status type: unspecified Qualified Code(s): R41.82 - Altered mental status, unspecified
[2020-06-17] MEDS: VENLAFAXINE HCL 37.5 MG TAB PO SCH (17:25)
[2020-06-17] MEDS: QUEtiapine FUMARATE 25 MG TABLET PO SCH (20:54)
[2020-06-17] MEDS ORDERED: MELATONIN 3 MG TAB PO SCH (21:00)
[2020-06-18] MEDS: ENOXAPARIN INJ 60 MG/0.6 ML SYR SQ SCH ×2 (01:46→13:38)
[2020-06-18 06:58] LABS: Potassium 4.1 mmol/L (3.5-5.1)
[2020-06-18 06:59] LABS: Calcium 8.4 mg/dl (8.5-10.1); Est GFR (Non-African American) 89.8
[2020-06-18] MEDS: LACTATED RINGER'S 1,000 ML IV SCH ×2 (09:50→16:32)
[2020-06-18] MEDS: CEFEPIME 2,000 MG in SYRINGE 0 ML IV SCH ×3 (09:51→20:43)
[2020-06-18] MEDS: VENLAFAXINE HCL 37.5 MG TAB PO SCH (09:52)
[2020-06-18] MEDS: DEXAMETHASONE SOD PHOSPHATE 6 MG in SYRINGE 0 ML IV SCH (09:52)
[2020-06-18] MEDS: CHOLECALCIFEROL 1,000 UNITS 25 MCG TAB PO SCH (09:52)
[2020-06-18] MEDS: ASPIRIN 81 MG ECTAB PO SCH (09:52)
[2020-06-18] MEDS: PSYLLIUM 58.6% POWDER PACKET PO SCH (09:52)
[2020-06-18] MEDS: MESALAMINE 400 MG CAPDR PO SCH ×3 (09:53→20:42)
--- NOTE | 2020-06-18 17:15 | Hospitalist Progress Note ---
Date of Service June 18, 2020 Assessment & Plan (1) COVID-19: Patient returns with acute hypoxic respiratory failure secondary to COVID- 19. Concern for secondary bacterial pneumonia as he was recently was in the hospital He has already completed Remdesivir convalescent plasma and is currently on iv dexamethasone dosing. There is a record of some COPD in the chart although he is not particularly hyperinflated on his chest x-rays. Patient continues admission for oxygen support continue dexamethasone daughter Carol [phone], updated family (2) Elevated troponin: Patient elevated troponin on presentation not associated with any chest pain. Patient has no acute EKG changes however this is a new finding. Patient was transferred to telemetry Lovenox continues be escalated to 1 mg/kg. the second troponin was slightlly lower, aspirin will be given unclear how this plays into his altered mental status or encephalopathy on presentation. Heart rate remains controlled without B juliet, will start atorvostatin once covid illness clears. The pt will have Echo and likely stress in the future (3) Altered mental state: Patient here with encephalopathy undetermined whether from Covid or other metabolic source patient will have cultures of urine and blood we will treat for bacterial pneumonia at this time he will remain on airborne precautions as he still within the 2-week period from his initial diagnosis. he is not eating and drinking very well, continue ivf,he did have good sleep with seroquel, poor results after melatonin hs not clear how much depression plays in this, away from family , family also states frequently gets depressed during winter did start effexor continued pending st cath urine for infection for metabolic encephalopathy, due to incontinence will have paul placed to avoid skin breakdown and obtain specimen (4) Ulcerative colitis: Patient on mesalamine for ulcerative colitis (5) DVT prophylaxis: Covid appropriate DVT prophylaxis Admission and Anticipated Discharge Date Admission Date: June 15, 2020 Subjective this pt is still with significant encephalopahty did agree to eat a bit and did leave in iv lines during the day since is incontinent of urine will have paul for ua and use some seroquel at night Review of Systems Review of Systems: Moderate distress and fatigue, confused no headache, blurry or double vision no speech or swallowing issues no chest pain, pressure or palpitations baseline increased shortness of breath, non productive cough no abdominal pain, nausea or vomiting, denies diarrhea no dysuria, hematuria or frequency, is incontinent of urine no focal joint pain or swelling no back pain, CVA tenderness or radicular pain no bruising, bleeding or rashes no focal signs of weakness or numbness or altered sensation no complaints of anxiety or depression. Physical Exam Physical Exam: The patient appeared chronically ill and weakened. Vital signs as documented. Head exam is normocephalic atraumatic no scleral icterus Neck is without JVD, thyromegaly, or carotid bruits. Lungs are coarse bilaterally, basilar rales, R>L Cardiac exam, Rhythm is regular.. No murmurs, rubs or gallops. Abdominal exam reveals normal bowel sounds, soft non tender, no masses Extremities are nonedematous and both pedal pulses are present Neurologic exam is alert and oriented, no focal loss of strength or sensation Skin is without bruises or rashes Psychologically is without concerns for anxiety or depression. Results & Data Results & Data ([facility]) Vital Signs (Past 12 Hours) Vital Signs Temp Pulse Pulse Resp BP Pulse Ox 06/18/20 16:11 59 L 06/18/20 16:09 97.7 F 64 20 139/68 88 L 06/18/20 12:33 97.9 F 57 L 18 176/70 H 92 06/18/20 08:00 59 L 06/18/20 07:26 97.5 F L 66 20 163/70 H 85 L PG Care Time/CCT Total # of Minutes Spent Total Time Spent with Patient: Total time spent is greater than 50% in coordination of care (as documented) at patient's floor/unit and/or counseling patient: Coding Level of Care Code 45587 Subseq Hosp Care Lvl 3 Diagnoses COVID-19 U07.1 Elevated troponin R77.8 Altered mental state R41.82 Altered mental status type: unspecified Ulcerative colitis K51.90 DVT prophylaxis Z29.9 (1) Altered mental state Altered mental status type: unspecified Qualified Code(s): R41.82 - Altered mental status, unspecified
[2020-06-18] MEDS ORDERED: traZODone HCL 50 MG TAB PO ONE (18:45)
[2020-06-18 19:12] LABS: Appearance Urine Clear (Clear); Bacteria Urine Automated Negative (Negative); Bilirubin Urine Negative (Negative); Blood Urine 3+ (Negative); Color Urine Yellow; Glucose Urine UA Negative (Negative); Ketones Urine 1+ (Negative); Leukocyte Esterase Urine Negative (Negative); Nitrite Urine Negative (Negative); Protein Urine Trace (Negative); RBC Urine Automated >30 /hpf (0-4); Specific Gravity Urine 1.026 (1.000-1.030); Urobilinogen Urine Negative (Negative)
[2020-06-19] MEDS: ENOXAPARIN INJ 60 MG/0.6 ML SYR SQ SCH ×2 (01:12→13:13)
[2020-06-19] MEDS: CEFEPIME 2,000 MG in SYRINGE 0 ML IV SCH ×3 (06:24→22:04)
[2020-06-19] MEDS: LACTATED RINGER'S 1,000 ML IV SCH ×2 (06:24→17:16)
[2020-06-19 07:03] LABS: Hematocrit (blood only) 42.4 % (42-52); Hemoglobin 14.5 g/dL (14.0-18.0); Mean Corpuscular Hemoglobin 29.9 pg (25-34); Mean Corpuscular Hgb Conc 34.2 g/dL (32-36); Mean Corpuscular Volume 87.4 fL (80-100); Mean Platelet Volume 10.6 fL (7.4-10.4); Platelet Count 216 K/uL (130-400); RDW Coefficient of Variation 13.2 % (11.5-14.5); RDW Standard Deviation 42.3 fL (36.4-46.3); Red Blood Count 4.85 M/uL (4.7-6.1); White Blood Count 11.29 K/uL (4.8-10.8)
[2020-06-19 07:23] LABS: Creatinine Clr Calc Pharmacy 79.4 ml/min; Est GFR (African American) 109.4; Est GFR (Non-African American) 94.4
[2020-06-19] MEDS: DEXAMETHASONE SOD PHOSPHATE 6 MG in SYRINGE 0 ML IV SCH (09:31)
[2020-06-19] MEDS: ASPIRIN 81 MG ECTAB PO SCH (09:33)
[2020-06-19] MEDS: PSYLLIUM 58.6% POWDER PACKET PO SCH (09:33)
[2020-06-19] MEDS: VENLAFAXINE HCL 37.5 MG TAB PO SCH (09:33)
[2020-06-19] MEDS: CHOLECALCIFEROL 1,000 UNITS 25 MCG TAB PO SCH (09:33)
[2020-06-19] MEDS: MESALAMINE 400 MG CAPDR PO SCH ×3 (09:33→20:06)
[2020-06-19] MEDS ORDERED: VENLAFAXINE HCL 37.5 MG TAB PO ONE (16:06)
[2020-06-19] MEDS ORDERED: traZODone HCL 50 MG TAB PO ONE (16:06)
--- NOTE | 2020-06-19 16:08 | Hospitalist Progress Note ---
Date of Service June 19, 2020 Assessment & Plan (1) COVID-19: Patient returns with acute hypoxic respiratory failure secondary to COVID- 19. Concern for secondary bacterial pneumonia as he was recently was in the hospital He has already completed Remdesivir convalescent plasma and is currently on iv dexamethasone dosing. There is a record of some COPD in the chart although he is not particularly hyperinflated on his chest x-rays. Patient continues admission for oxygen support continue dexamethasone daughter Carol [phone], updated family (2) Elevated troponin: Patient elevated troponin on presentation not associated with any chest pain. Patient has no acute EKG changes however this is a new finding. Patient was transferred to telemetry Lovenox continues be escalated to 1 mg/kg. the second troponin was slightlly lower, aspirin will be given unclear how this plays into his altered mental status or encephalopathy on presentation. Heart rate remains controlled without B juliet, will start atorvostatin once covid illness clears. The pt will have Echo and likely stress in the future (3) Altered mental state: Patient here with encephalopathy undetermined whether from Covid or other metabolic source patient will have cultures of urine and blood we will treat for bacterial pneumonia at this time he will remain on airborne precautions as he still within the 2-week period from his initial diagnosis. he is not eating and drinking very well, continue ivf,he did have good sleep with seroquel, poor results after melatonin hs not clear how much depression plays in this, away from family , family also states frequently gets depressed during winter did start effexor continued pending st cath urine for infection for metabolic encephalopathy, due to incontinence will have paul placed to avoid skin breakdown and obtain specimen (4) Ulcerative colitis: Patient on mesalamine for ulcerative colitis (5) DVT prophylaxis: Covid appropriate DVT prophylaxis Admission and Anticipated Discharge Date Admission Date: June 15, 2020 Subjective this pt is with improving encephalopahty did agree to eat a bit and did leave in iv lines during the day since is incontinent of urine now s/p paul ua does not show infection, and did sleep with trazadone but did have episode of puling at paul Review of Systems Review of Systems: Moderate distress and fatigue, confused no headache, blurry or double vision no speech or swallowing issues no chest pain, pressure or palpitations baseline increased shortness of breath, non productive cough no abdominal pain, nausea or vomiting, denies diarrhea no dysuria, hematuria or frequency, is incontinent of urine no focal joint pain or swelling no back pain, CVA tenderness or radicular pain no bruising, bleeding or rashes no focal signs of weakness or numbness or altered sensation no complaints of anxiety or depression. Physical Exam Physical Exam: The patient appeared chronically ill and weakened. Vital signs as documented. Head exam is normocephalic atraumatic no scleral icterus Neck is without JVD, thyromegaly, or carotid bruits. Lungs are coarse bilaterally, basilar rales, R>L Cardiac exam, Rhythm is regular.. No murmurs, rubs or gallops. Abdominal exam reveals normal bowel sounds, soft non tender, no masses Extremities are nonedematous and both pedal pulses are present Neurologic exam is alert and oriented, no focal loss of strength or sensation overall little interaction Skin is without bruises or rashes Psychologically is with depression. Results & Data Results & Data ([facility]) Vital Signs (Past 12 Hours) Vital Signs Temp Pulse Pulse Resp BP BP Pulse Ox 06/19/20 15:52 98.1 F 63 16 144/82 H 90 06/19/20 11:34 97.7 F 61 16 179/88 H 90 06/19/20 07:57 97.7 F 65 16 170/79 H 97 PG Care Time/CCT Total # of Minutes Spent Total Time Spent with Patient: Total time spent is greater than 50% in coordination of care (as documented) at patient's floor/unit and/or counseling patient: Coding Level of Care Code 59647 Subseq Hosp Care Lvl 3 Diagnoses COVID-19 U07.1 Elevated troponin R77.8 Altered mental state R41.82 Altered mental status type: unspecified Ulcerative colitis K51.90 DVT prophylaxis Z29.9 (1) Altered mental state Altered mental status type: unspecified Qualified Code(s): R41.82 - Altered mental status, unspecified
[2020-06-19] MEDS: ENOXAPARIN INJ 30 MG/0.3 ML SYR SQ SCH (23:39)
[2020-06-20] MEDS: LACTATED RINGER'S 1,000 ML IV SCH ×2 (03:50→15:37)
[2020-06-20 04:27] LABS: BUN Creatinine Ratio 32.8 (10-20); Calcium 8.4 mg/dl (8.5-10.1); Creatinine Clr Calc Pharmacy 71.7 ml/min; Est GFR (Non-African American) 89.8; Potassium 4.3 mmol/L (3.5-5.1)
[2020-06-20] MEDS: CEFEPIME 2,000 MG in SYRINGE 0 ML IV SCH ×3 (04:59→21:51)
[2020-06-20] MEDS: ASPIRIN 81 MG ECTAB PO SCH (09:00)
[2020-06-20] MEDS: VENLAFAXINE HCL XR 75 MG CAPXR PO SCH (09:00)
[2020-06-20] MEDS: MESALAMINE 400 MG CAPDR PO SCH ×3 (09:00→20:26)
[2020-06-20] MEDS: CHOLECALCIFEROL 1,000 UNITS 25 MCG TAB PO SCH (09:00)
[2020-06-20] MEDS: DEXAMETHASONE SOD PHOSPHATE 6 MG in SYRINGE 0 ML IV SCH (09:45)
[2020-06-20] MEDS: ENOXAPARIN INJ 30 MG/0.3 ML SYR SQ SCH ×2 (12:00→23:31)
--- NOTE | 2020-06-20 17:42 | Hospitalist Progress Note ---
Date of Service June 20, 2020 Assessment & Plan (1) COVID-19: Patient returns with acute hypoxic respiratory failure secondary to COVID- 19. Concern for secondary bacterial pneumonia as he was recently was in the hospital He has already completed Remdesivir convalescent plasma and is currently on iv dexamethasone dosing. There is a record of some COPD in the chart although he is not particularly hyperinflated on his chest x-rays. Patient continues admission for oxygen support seems to be declining with oxygen need, continued dexamethasone daughter Carol [phone], updated family 06/16, (2) Elevated troponin: Patient elevated troponin on presentation not associated with any chest pain. Patient has no acute EKG changes however this is a new finding. Patient was transferred to telemetry Lovenox continues be escalated to 1 mg/kg. the second troponin was slightlly lower, aspirin will be given unclear how this plays into his altered mental status or encephalopathy on presentation. Heart rate remains controlled without B juliet, will start atorvostatin once covid illness clears. The pt will have Echo and likely stress in the future may be after discharge (3) Altered mental state: Patient here with encephalopathy undetermined whether from Covid or other metabolic source patient will have cultures of urine and blood we will treat for bacterial pneumonia at this time he will remain on airborne precautions as he still within the 2-week period from his initial diagnosis. he is not eating and drinking very well, continue ivf,he did have good sleep with seroquel, poor results after melatonin hs not clear how much depression plays in this, away from family , family also states frequently gets depressed during winter did start effexor increased dosing is tolerant of this Urinalysis and blood cultures negative for infection for metabolic encephalopathy, due to incontinence will have paul placed to avoid skin breakdown and obtain specimen Patient's encephalopathy may be Covid related or perhaps augmented by depression (4) Ulcerative colitis: Patient on mesalamine for ulcerative colitis (5) DVT prophylaxis: Covid appropriate DVT prophylaxis Admission and Anticipated Discharge Date Admission Date: June 15, 2020 Subjective this pt is with continually improving encephalopahty did eat a bit and did leave in iv lines during the day agreeable to try to get out of bed during the day since is incontinent of urine now s/p paul ua does not show infection, and did sleep with trazadone tolerating increased doses of reflux or Review of Systems Review of Systems: Moderate distress and fatigue, confused no headache, blurry or double vision no speech or swallowing issues no chest pain, pressure or palpitations baseline increased shortness of breath, non productive cough no abdominal pain, nausea or vomiting, denies diarrhea no dysuria, hematuria or frequency, is incontinent of urine no focal joint pain or swelling no back pain, CVA tenderness or radicular pain no bruising, bleeding or rashes no focal signs of weakness or numbness or altered sensation no complaints of anxiety or depression. Physical Exam Physical Exam: The patient appeared chronically ill and weakened. Vital signs as documented. Head exam is normocephalic atraumatic no scleral icterus Neck is without JVD, thyromegaly, or carotid bruits. Lungs are coarse bilaterally, basilar rales, R>L Cardiac exam, Rhythm is regular.. No murmurs, rubs or gallops. Abdominal exam reveals normal bowel sounds, soft non tender, no masses Extremities are nonedematous and both pedal pulses are present Neurologic exam is alert and oriented, no focal loss of strength or sensation overall little interaction Skin is without bruises or rashes Psychologically is with depression. Results & Data Results & Data ([facility]) Vital Signs (Past 12 Hours) Vital Signs Temp Pulse Resp BP Pulse Ox 06/20/20 15:00 97.5 F L 70 18 133/70 94 PG Care Time/CCT Total # of Minutes Spent Total Time Spent with Patient: Total time spent is greater than 50% in coordination of care (as documented) at patient's floor/unit and/or counseling patient: Coding Level of Care Code 33506 Subseq Hosp Care Lvl 3 Diagnoses COVID-19 U07.1 Elevated troponin R77.8 Altered mental state R41.82 Altered mental status type: unspecified Ulcerative colitis K51.90 DVT prophylaxis Z29.9 (1) Altered mental state Altered mental status type: unspecified Qualified Code(s): R41.82 - Altered mental status, unspecified
[2020-06-20] MEDS: PSYLLIUM 58.6% POWDER PACKET PO SCH (19:08)
[2020-06-21] MEDS: LACTATED RINGER'S 1,000 ML IV SCH ×2 (03:51→16:20)
[2020-06-21] MEDS: CEFEPIME 2,000 MG in SYRINGE 0 ML IV SCH ×3 (05:16→21:19)
[2020-06-21] MEDS: ASPIRIN 81 MG ECTAB PO SCH (09:23)
[2020-06-21] MEDS: DEXAMETHASONE SOD PHOSPHATE 6 MG in SYRINGE 0 ML IV SCH (09:23)
[2020-06-21] MEDS: PSYLLIUM 58.6% POWDER PACKET PO SCH (09:23)
[2020-06-21] MEDS: CHOLECALCIFEROL 1,000 UNITS 25 MCG TAB PO SCH (09:23)
[2020-06-21] MEDS: VENLAFAXINE HCL XR 75 MG CAPXR PO SCH (09:23)
[2020-06-21] MEDS: MESALAMINE 400 MG CAPDR PO SCH ×3 (09:23→21:18)
[2020-06-21] MEDS: ENOXAPARIN INJ 30 MG/0.3 ML SYR SQ SCH ×2 (11:39→23:48)
--- NOTE | 2020-06-21 16:52 | Hospitalist Progress Note ---
Date of Service June 21, 2020 Assessment & Plan (1) COVID-19: Patient returns with acute hypoxic respiratory failure secondary to COVID- 19. Concern for secondary bacterial pneumonia as he was recently was in the hospital He has already completed Remdesivir convalescent plasma and is currently on iv dexamethasone dosing. There is a record of some COPD in the chart although he is not particularly hyperinflated on his chest x-rays. Patient continues admission for oxygen support seems to be declining with oxygen need, continued dexamethasone daughter Carol [phone], updated family 06/16, , , . Family is concerns for his coming home as his is now ill and they may not be able to care for him at home (2) Elevated troponin: Patient elevated troponin on presentation not associated with any chest pain. Patient has no acute EKG changes however this is a new finding. Patient was transferred to telemetry Lovenox continues be escalated to 1 mg/kg. the second troponin was slightlly lower, aspirin will be given unclear how this plays into his altered mental status or encephalopathy on presentation. Heart rate remains controlled without B juliet, will start atorvostatin once covid illness clears. The pt will have Echo and likely stress in the future may be after discharge (3) Altered mental state: Patient here with encephalopathy undetermined whether from Covid or other metabolic source patient will have cultures of urine and blood we will treat for bacterial pneumonia at this time he will remain on airborne precautions as he still within the 2-week period from his initial diagnosis. ,he did have good sleep with trazadone not clear how much depression plays in this, away from family , family also states frequently gets depressed during winter did start effexor increased dosing is tolerant of this Urinalysis and blood cultures negative for infection for metabolic encephalopathy, due to incontinence will have paul placed to avoid skin breakdown and obtain specimen will remove paul and do voiding trial 06/22/20 Patient's encephalopathy may be Covid related or perhaps augmented by depression (4) Ulcerative colitis: Patient on mesalamine for ulcerative colitis (5) DVT prophylaxis: Covid appropriate DVT prophylaxis Admission and Anticipated Discharge Date Admission Date: June 15, 2020 Subjective this pt is with continually improving encephalopahty , each day a small improvement since is incontinent of urine now s/p paul ua does not show infection, and did sleep with trazadone tolerating increased doses of effexor Review of Systems Review of Systems: Moderate distress and fatigue, confused no headache, blurry or double vision no speech or swallowing issues no chest pain, pressure or palpitations baseline increased shortness of breath, non productive cough no abdominal pain, nausea or vomiting, denies diarrhea no dysuria, hematuria or frequency, is incontinent of urine no focal joint pain or swelling no back pain, CVA tenderness or radicular pain no bruising, bleeding or rashes no focal signs of weakness or numbness or altered sensation no complaints of anxiety or depression. Physical Exam Physical Exam: The patient appeared chronically ill and weakened. Vital signs as documented. Head exam is normocephalic atraumatic no scleral icterus Neck is without JVD, thyromegaly, or carotid bruits. Lungs are coarse bilaterally, basilar rales, R>L Cardiac exam, Rhythm is regular.. No murmurs, rubs or gallops. Abdominal exam reveals normal bowel sounds, soft non tender, no masses Extremities are nonedematous and both pedal pulses are present Neurologic exam is alert and oriented, no focal loss of strength or sensation overall little interaction Skin is without bruises or rashes Psychologically is with depression. Results & Data Results & Data ([facility]) Vital Signs (Past 12 Hours) Vital Signs Temp Pulse Pulse Pulse Resp BP BP 06/21/20 15:38 98.1 F 57 L 18 147/64 H 06/21/20 14:34 06/21/20 11:37 97.9 F 60 17 142/69 H 06/21/20 09:00 58 L 06/21/20 07:34 97.3 F L 65 17 156/71 H 06/21/20 06:00 Pulse Ox Pulse Ox 06/21/20 15:38 91 06/21/20 14:34 96 06/21/20 11:37 91 06/21/20 09:00 06/21/20 07:34 93 06/21/20 06:00 92 PG Care Time/CCT Total # of Minutes Spent Total Time Spent with Patient: Total time spent is greater than 50% in coordination of care (as documented) at patient's floor/unit and/or counseling patient: Coding Level of Care Code 16895 Subseq Hosp Care Lvl 3 Diagnoses COVID-19 U07.1 Elevated troponin R77.8 Altered mental state R41.82 Altered mental status type: unspecified Ulcerative colitis K51.90 DVT prophylaxis Z29.9 (1) Altered mental state Altered mental status type: unspecified Qualified Code(s): R41.82 - Altered mental status, unspecified
[2020-06-22] MEDS: LACTATED RINGER'S 1,000 ML IV SCH ×2 (04:24→16:34)
[2020-06-22] MEDS: CEFEPIME 2,000 MG in SYRINGE 0 ML IV SCH (06:11)
[2020-06-22 07:22] LABS: Hematocrit (blood only) 41.9 % (42-52); Mean Corpuscular Hemoglobin 29.7 pg (25-34); Mean Corpuscular Hgb Conc 33.4 g/dL (32-36); Mean Corpuscular Volume 88.8 fL (80-100); Mean Platelet Volume 10.6 fL (7.4-10.4); Platelet Count 246 K/uL (130-400); RDW Coefficient of Variation 13.2 % (11.5-14.5); RDW Standard Deviation 43.2 fL (36.4-46.3); Red Blood Count 4.72 M/uL (4.7-6.1); White Blood Count 10.16 K/uL (4.8-10.8)
[2020-06-22 07:54] LABS: BUN Creatinine Ratio 27.4 (10-20); Calcium 8.6 mg/dl (8.5-10.1); Creatinine Clr Calc Pharmacy 64.9 ml/min; Est GFR (African American) 101.7; Est GFR (Non-African American) 87.7; Potassium 4.1 mmol/L (3.5-5.1)
[2020-06-22] MEDS: DEXAMETHASONE SOD PHOSPHATE 6 MG in SYRINGE 0 ML IV SCH (09:29)
[2020-06-22] MEDS: VENLAFAXINE HCL XR 75 MG CAPXR PO SCH (09:29)
[2020-06-22] MEDS: MESALAMINE 400 MG CAPDR PO SCH ×3 (09:29→20:33)
[2020-06-22] MEDS: ASPIRIN 81 MG ECTAB PO SCH (09:29)
[2020-06-22] MEDS: PSYLLIUM 58.6% POWDER PACKET PO SCH (09:30)
[2020-06-22] MEDS: CHOLECALCIFEROL 1,000 UNITS 25 MCG TAB PO SCH (09:30)
--- NOTE | 2020-06-22 10:12 | Hospitalist Progress Note ---
Date of Service June 22, 2020 Assessment & Plan (1) COVID-19: Patient returns with acute hypoxic respiratory failure secondary to COVID- 19. Concern for secondary bacterial pneumonia as he was recently was in the hospital He has already completed Remdesivir convalescent plasma completed a full course of decadron, currently on 6mg IV daily, could this be contributing to encephalopathy? will decrease to 2mg IV daily x 2 days then stop to see if mental status improves oxygen requirements down to 1.5L daughter Carol [phone], updated her on 06/22, discussed getting MRI brain, she agreed, said that three weeks of altered mental status, no waxing or waning of symptoms (2) Elevated troponin: Patient elevated troponin on presentation not associated with any chest pain. Patient has no acute EKG changes however this is a new finding. Patient was transferred to telemetry Lovenox continues be escalated to 1 mg/kg. the second troponin was slightlly lower, aspirin will be given unclear how this plays into his altered mental status or encephalopathy on presentation. Heart rate remains controlled without B juliet, will start atorvostatin once covid illness clears. The pt will have Echo and likely stress in the future may be after discharge (3) Altered mental state: Patient here with encephalopathy undetermined whether from Covid or other metabolic source patient will have cultures of urine and blood we will treat for bacterial pneumonia at this time he will remain on airborne precautions as he still within the 2-week period from his initial diagnosis. ,he did have good sleep with trazadone not clear how much depression plays in this, away from family , family also states frequently gets depressed during winter did start effexor increased dosing is tolerant of this Urinalysis and blood cultures negative for infection for metabolic encephalopathy, due to incontinence will have paul placed to avoid skin breakdown and obtain specimen will remove paul and do voiding trial 06/22/20 Patient's encephalopathy may be Covid related or perhaps augmented by depression due to constant changes, has not been himself for three weeks according to daughter, will get MRI brain to ruler out stroke also, might consider Decadron as cause, confusion from steroids? will taper to 2mg IV and then taper off and look for improvements (4) Ulcerative colitis: Patient on mesalamine for ulcerative colitis (5) DVT prophylaxis: Covid appropriate DVT prophylaxis Admission and Anticipated Discharge Date Admission Date: June 15, 2020 Subjective patient sitting up in a chair, no distress, seems down and depressed he knows it is June, says it is 2016 but then agrees when I tell him it is 2019 he is eating okay, maybe 50% of breakfast he has been here a week, discussed that he is almost off oxygen will call his family for update reviewed chart and labs, normal CBC and BMP Review of Systems Review of Systems: All systems reviewed & are unremarkable except as noted in Subjective Respiratory: + dyspnea on exertion; no cough and no dyspnea Psychiatric: + depression and + abnormal sleep pattern Physical Exam Constitutional: well developed, + thin and comfortable; no acute distress Neck: trachea midline, no thyromegaly Respiratory: normal respiratory effort, lungs clear to auscultation Cardiovascular: RRR, no murmur, no edema Gastrointestinal (Abdomen): normal bowel sounds, soft, nontender, no hepatosplenomegaly Musculoskeletal: no cyanosis or clubbing, extremities motor strength 5/5 Skin: no rashes, warm and dry Neurologic: patellar DTR's 2+ bilat, sensation intact and PERRL, EOMI, accommodation nl, no face palsy, no dysarthria Psychiatric: Orientation: alert, oriented to person, oriented to place and cooperative; + not oriented to time Affect: + flat affect Mood: + depressed mood Lymphatic: no cervical or axillary lymphadenopathy Results & Data Results & Data ([facility]) Vital Signs (Past 12 Hours) Vital Signs Temp Pulse Pulse Pulse Resp BP BP 06/22/20 07:44 36.6 C 58 L 20 147/85 H 06/22/20 03:00 36.6 C 62 17 146/69 H 06/22/20 00:05 59 L 06/21/20 23:16 36.4 C L 52 L 17 151/72 H Pulse Ox Pulse Ox 06/22/20 07:44 96 06/22/20 03:00 94 06/22/20 00:05 94 06/21/20 23:16 94 Laboratory Results Laboratory Results - last 24 hr 06/22/20 06/22/20 06:42 06:42 WBC 10.16 RBC 4.72 Hgb 14.0 Hct 41.9 L MCV 88.8 MCH 29.7 MCHC 33.4 RDW Std Deviation 43.2 RDW Coeff of Kathrin 13.2 Plt Count 246 MPV 10.6 H Sodium 137 Potassium 4.1 Chloride 106 Carbon Dioxide 26 Anion Gap 6.0 BUN 20 H Creatinine 0.74 Est Cr Clr Drug Dosing 64.9 Est GFR ( Amer) 101.7 Est GFR (Non-Af Amer) 87.7 BUN/Creatinine Ratio 27.4 H Glucose 77 Calcium 8.6 Medications Administered Current Inpatient Medications Acetaminophen (Acetaminophen 500 Mg Tab) 1,000 mg PO Q6H PRN PRN Reason: Pain Stop: 07/15/20 10:24 Aspirin (Aspirin 81 Mg Ectab) 81 mg PO QAM [facility] Stop: 07/16/20 08:59 Last Admin: 06/21/20 09:23 Dose: 81 mg Documented by: Enoxaparin Sodium (Enoxaparin Inj 30 Mg/0.3 Ml Syr) 30 mg SQ Q12H [facility] Stop: 07/20/20 00:00 Last Admin: 06/21/20 23:48 Dose: 30 mg Documented by: Cefepime HCl 2,000 mg/ Syringe 20 mls @ 5 mls/min IV Q8 [facility]; Protocol Stop: 06/22/20 13:59 Last Admin: 06/22/20 06:11 Dose: 5 mls/min Documented by: Dexamethasone Sodium Phosphate (6 mg/ Syringe) 1.5 mls @ 1 mls/min IV DAILY [facility] Stop: 06/25/20 08:59 Last Admin: 06/21/20 09:23 Dose: 1 mls/min Documented by: Lactated Ringer's (Lr) 1,000 mls @ 85 mls/hr IV .[id number] [facility] Stop: 07/16/20 18:14 Last Admin: 06/22/20 04:24 Dose: 85 mls/hr Documented by: Mesalamine (Mesalamine 400 Mg Capdr) 800 mg PO TID [facility] Stop: 07/15/20 10:24 Last Admin: 06/21/20 21:18 Dose: 800 mg Documented by: Nitroglycerin (Nitroglycerin Sl 0.4 Mg/Tab Tab) 0.4 mg SL UD PRN PRN Reason: Chest Pain Stop: 07/15/20 23:13 Ondansetron HCl (Ondansetron 4 Mg Od Tab) 4 mg PO Q8H PRN PRN Reason: nausea and vomiting Stop: 07/15/20 10:36 Ondansetron HCl (Ondansetron Inj 2 Mg/Ml 2 Ml Vial) 4 mg IV Q6H PRN PRN Reason: Nausea Stop: 07/15/20 10:24 Psyllium Hydrophilic Mucilloid (Psyllium 58.6% Powder Packet) 1 pkt PO DAILY [facility] Stop: 07/15/20 11:29 Last Admin: 06/21/20 09:23 Dose: 1 pkt Documented by: Venlafaxine HCl (Venlafaxine Hcl Xr 75 Mg Capxr) 75 mg PO QAM [facility] Stop: 07/20/20 08:59 Last Admin: 06/21/20 09:23 Dose: 75 mg Documented by: Vitamin D (Cholecalciferol 1,000 Units 25 Mcg Tab) 1,000 units PO QAM [facility] Stop: 07/15/20 11:29 Last Admin: 06/21/20 09:23 Dose: 1,000 units Documented by: PG Care Time/CCT Total # of Minutes Spent Total Time Spent: 36 Total Time Spent with Patient: Total time spent is greater than 50% in coordination of care (as documented) at patient's floor/unit and/or counseling patient: 16 minutes on phone with daughter 20 minutes on exam, reviewing chart, labs, documentation Coding Level of Care Code 77073 Subseq Hosp Care Lvl 3 Diagnoses COVID-19 U07.1 Elevated troponin R77.8 Altered mental state R41.82 Altered mental status type: unspecified Ulcerative colitis K51.90 DVT prophylaxis Z29.9 (1) Altered mental state Altered mental status type: unspecified Qualified Code(s): R41.82 - Altered mental status, unspecified
[2020-06-22] MEDS: ENOXAPARIN INJ 30 MG/0.3 ML SYR SQ SCH (12:07)
[2020-06-23] MEDS: ENOXAPARIN INJ 30 MG/0.3 ML SYR SQ SCH ×2 (00:34→12:02)
--- NOTE | 2020-06-23 04:14 | Communication Note ---
Date of Service: June 23, 2020 Was contacted by the patient's nurse and alerted to contact stat rad. I contacted stat rad who alerted me to several acute white matter infarcts. I dante rted my attending, unfortunately patient is out of the window, however needs further escalation of care so be transferred to telemetry. Resident Activity Tracking Resident Involvement: Resident Care Provided Care Provided: Adult Hospital Medicine
[2020-06-23] MEDS ORDERED: PHARMACIST DISCHARGE MED REC CONSULT PRN (05:58)
--- NOTE | 2020-06-23 07:03 | Magnetic Resonance Report ---
MR brain wo con HISTORY: 80 years-old Male altered mental status acutely altered mental status COMPARISON: Head CT 06/09/2020 TECHNIQUE: Multiplanar multisequence MRI of the brain was obtained without the use of IV contrast. FINDINGS: Numerous subcentimeter foci of restricted diffusion noted within the bilateral watershed distribution s of the centrum semiovale, right greater than left with additional punctate focus within the left pa rietal distribution and right occipital lobe. These foci demonstrate intermediate to low signal on th e ADC map. Mildly increased signal within these distributions on the T2/FLAIR images. Midline structu res including the corpus callosum, brainstem, optic chiasm, pituitary and pineal glands appear unrema rkable the sagittal T1 series. No cerebellar tonsillar herniation. Degenerative changes are noted inv olving the imaged cervical spine. No acute intracranial hemorrhage, midline shift, abnormal extra axial collection, hydrocephalus or in tracranial mass. Age-related involutional changes. No pathologic blooming artifact on the T2 star ser ies. Mild to moderate T2/FLAIR hyperintensities are noted throughout the white matter of the bilatera l cerebral hemispheres suggestive of chronic microvascular ischemic disease. Cerebral venous sinuses and major arterial flow voids at the level of the skull base appear patent. Prior bilateral lens repl acement. The skull and soft tissues are unremarkable. Paranasal sinuses mastoid air cells are general ly clear. IMPRESSION: 1. Acute versus subacute subcentimeter infarcts of the right greater than left watershed distribution s of the centrum semiovale with additional punctate foci noted within the left parietal and right occ ipital lobes. 2. No acute intracranial hemorrhage or midline shift. 3. Age-related involutional changes with chronic microvascular ischemic disease. ACT 112: Negative or not required by law. The above report was generated using voice recognition software. It may contain grammatical, syntax o r spelling errors. Electronically signed by: Gideon Goodrich M.D. 06/23/2020 7:01 AM
[2020-06-23] MEDS: ASPIRIN 81 MG ECTAB PO SCH (08:27)
[2020-06-23] MEDS: MESALAMINE 400 MG CAPDR PO SCH ×3 (08:27→20:02)
[2020-06-23] MEDS: DEXAMETHASONE SOD PHOSPHATE 2 MG in SYRINGE 0 ML IV SCH (08:27)
[2020-06-23] MEDS: CHOLECALCIFEROL 1,000 UNITS 25 MCG TAB PO SCH (08:27)
[2020-06-23] MEDS: PSYLLIUM 58.6% POWDER PACKET PO SCH (08:28)
[2020-06-23 09:29] LABS: Chol HDL Ratio 3; Cholesterol 150 mg/dl (0-200); HDL Cholesterol 44 mg/dl; LDL Cholesterol Calculated 70 mg/dl; Triglycerides 179 mg/dl (0-150); VLDL Cholesterol 36 mg/dl
--- NOTE | 2020-06-23 13:16 | Neurology Consultation ---
Date of Consultation June 23, 2020 Assessment & Plan (1) Stroke: Todd Jett is a 80 yo man w/ PMH of UC on mesalamine, emphysema, BPH and recent COVID diagnosis who p/t [facility] on 06/16/20 with AMS and worsening hypoxia in the setting of recent COVID, found to have multifocal punctuate w atershed regions. Symptom localization: bilateral hemispheric Stroke mechanism: cardioembolic vs flow failure, less likely hypercoagulable in the setting of COVID given no LVO signs Stroke WorkUp: - CTA head/neck: pending - MRI brain: multifocal punctuate watershed regions bilaterally (right more than left hemisphere) - TTE: EF 60-65%, mild LVH, mild AR, no ASD - Telemetry: pending - A1c: 6.1 - FLP: 70 Stroke Management: - Acute treatment: ASA, tPA - Continuous cardiac monitoring, will consider Holter monitor as outpatient if telemetry here unrevealing - Vitals, Neurochecks, NIHSS per unit routine - BP parameters: SBP CAP 180, no need for scheduled anti-hypertensives at this time, IV Labetalol/Hydralazine PRN for CAP - Complete ischemic stroke workup with CTA head and neck (alternative would be carotid dopplers if he will not allow an IV to be placed for the CTA) - Consult speech, PT, OT for supportive management - Will school counselor concerning stroke education, smoking cessation, healthy diet, physical activity, weight loss - Follow up with PCP for assistance with outpatient goals (BP <130/80, LDL <70, A1c <7) - Follow up in neurology clinic in 2-3 months with ESTHER Hooker Secondary Stroke Prevention: - Antiplatelet: ASA 81mg po daily - Anticoagulation: Not indicated at this time - Statin: no need to start at this time (already at goal) HTN: - BP parameters, as above - No need for BP meds at this time as he is at goal and concern is more for hypotension as the cause of current strokes (vs hypercoagulability in the setting of COVID) FEN/GI: - Diet: Cardiac HH diet and PO meds given absence of bulbar signs or symptoms - Monitor lytes and replete PRN Glucose Control: - Sliding scale insulin and accuchecks per primary team to avoid hyperglycemia Thank you for this interesting consult. Plan of care was discussed with primary team. Please call with any questions. (2) COVID-19: (3) Altered mental state: History of Present Illness Attending Physician: Miguel Angel Brooks, DO History of Present Illness Todd Jett is a 80 yo man w/ PMH of UC on mesalamine, emphysema, BPH and recent COVID diagnosis who p/t [facility] on 06/16/20 with AMS and worsening hypoxia in the setting of recent COVID, found to have multifocal punctuate watershed regions. Todd re-presented to [facility] on 06/16/20 after having increased confusion in the setting of COVID diagnosis. He was requiring 6L NC on arrival. Labs notable for COVID positive, influenza negative, CBC/BMP unremarkable, INR 1.3, ferritin elevated to 1024.9, troponin elevated to 0.83, ESR 26, CRP 7, albumin low at 2.8. BPs this hospitalization and prior recent hospitalization have all been WNL range. An MRI brain was obtained on 06/23/20 and was independently reviewed; shows multiple punctuate infarcts in bilateral watershed regions (right more than left). He does have confusion on examination (disoriented to time) but is otherwise moving all extremities without any numbness. Allergies Allergy/AdvReac Type Severity Reaction Status Date / Time No Known Allergies Allergy Verified 06/15/20 06:24 Home Medications Medication Instructions Recorded Confirmed Type mesalamine [Delzicol] 800 mg PO TID 03/09/18 06/15/20 History cholecalciferol (vitamin D3) 25 mcg PO QAM 06/06/20 06/15/20 History [Vitamin D3] ondansetron 4 mg PO Q8H PRN #12 tab 06/06/20 06/15/20 Rx sildenafil 100 mg PO DIRECTED PRN 06/06/20 06/15/20 History Metamucil 1 tbsp PO DAILY 06/09/20 06/15/20 History Zinc Gummies 1 tab PO DAILY 06/09/20 06/15/20 History acetaminophen [Tylenol Extra 1,000 mg PO Q6H PRN 06/09/20 06/15/20 History Strength] dexamethasone 6 mg PO DAILY #5 tab 06/13/20 06/15/20 Rx Patient History Medical History BPH (benign prostatic hyperplasia) Emphysema, unspecified Osteoarthritis PVC's (premature ventricular contractions) Ulcerative colitis Surgical History History of appendectomy History of cataract surgery B/L History of surgical removal of ganglion cyst L shoulder History of tonsillectomy History of total hip arthroplasty LEFT Social History Smoking Status: Current some day smoker Cigarettes Per Day: 10 PER DAY; Second Hand Exposure: No; Do You Dip or Chew Tobacco: No; Tobacco Cessation Education Requested by Patient: No Hx Alcohol Use: No Hx Substance Use: No Preferred Language: Mozambican Communication Ability: Effective Corporate Travel Manager Required: No Beliefs That Will Affect Care: None marital status: Current Living Situation: Spouse Other Information That Helps Us Care for You: No Feels Safe at Home: Yes Safety Concerns: Feels Safe At This Time Assistive Devices: Walker Review of Systems Review of Systems: Unobtainable due to cognitive status Exam (Neuro) Physical Exam: General Exam: GEN: NAD, sitting in bed. HEENT: No conjunctival injection, no rhinorrhea. CV: RRR, no peripheral edema PULM: Nonlabored respirations on room air. Neuro Exam: MS: Awake and Alert. Oriented to person, place, not date. Speech fluent and appropriate without dysarthria or paraphasic errors. Language intact including naming, comprehension, repetition. Cognition and memory minimally impaired. Attention intact. No neglect. CN: Visual schaefer full. Unable to visualize on fundoscopic exam. PERRLA OU. EOMI without nystagmus. Facial sensation intact to LT. Facial muscles full and symmetric. Hearing intact to conversation. Uvula midline with symmetric palatal elevation. Shoulder shrug normal. Tongue midline. MOTOR: Normal bulk and tone. No pronator drift. All extremities antigravity without drift REFLEXES: deferred, unable to participate in this portion of examination SENSORY: Intact to LT without extinction to double simultaneous stimuli. COORDINATION: No dysmetria or ataxia on [id number] bilaterally. Normal Ike bilaterally. GAIT: deferred given physical status NIH STROKE SCALE 1A. Level of Consciousness (0-3) = 0 1B. LOC Questions (0-2) = 1 1C. LOC Commands (0-2) = 0 2. Best Horizontal Gaze (0-2) = 0 3. Visual Schaefer (0-3) = 0 4. Facial Palsy (0-3) = 0 5. Motor Arm Right (0-4) = 0 Left (0-4) = 0 6. Motor Leg Right (0-4) = 0 Left (0-4) = 0 7. Limb Ataxia (0-2) = 0 8. Sensory (0-2) = 0 9. Best Language (0-3) = 0 10. Dysarthria (0-2) = 0 11. Extinction and Inattention (0-2) = 0 NIHSS TOTAL = 1 * exam performed by primary attending given COVID positive patient and no access to appropriate PPE* Results & Data ([facility]) Vital Signs (Past 12 Hours) Vital Signs Temp Pulse Pulse Resp BP BP Pulse Ox 06/23/20 11:09 36.7 C 59 L 16 138/72 92 06/23/20 07:25 36.7 C 61 16 144/71 H 91 06/23/20 06:18 56 L 06/23/20 06:03 36.7 C 57 L 18 141/61 H 90 PG Care Time/CCT Total # of Minutes Spent Total Time Spent with Patient: Total time spent is greater than 50% in coordination of care (as documented) at patient's floor/unit and/or counseling patient: Coding Level of Care Code 40869 Initial Inpt Care Lvl 3 Diagnoses Stroke I63.9 COVID-19 U07.1 Altered mental state R41.82 Altered mental status type: unspecified (1) Altered mental state Altered mental status type: unspecified Qualified Code(s): R41.82 - Altered mental status, unspecified
[2020-06-23 13:30] LABS: Estimated Average Glucose 128 mg/dl; Hemoglobin A1C 6.1 % (4.5-5.6)
--- NOTE | 2020-06-23 15:20 | Hospitalist Progress Note ---
Date of Service June 23, 2020 Assessment & Plan (1) Stroke: 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 in watershed regions on aspirin already LDL is 70, HbA1c is 6.1% BP better controlled today will complete stroke work up with CTA head and neck if he will be compliant echocardiogram await final treatment recommendations from neurology most likely COVID contributed to stroke with increased coagulability (2) COVID-19: Patient returns with acute hypoxic respiratory failure secondary to COVID- 19. Concern for secondary bacterial pneumonia as he was recently was in the hospital He has already completed Remdesivir convalescent plasma completed a full course of decadron, currently on 6mg IV daily, could this be contributing to encephalopathy? will decrease to 2mg IV daily x 2 days then stop to see if mental status improves, still agitated today he is on room air today, the viral pneumonia has resolved, now dealing with stroke stop Decadron tomorrow daughter Carol [phone], updated her on 06/23, discussed results of MRI brain (3) Elevated troponin: Patient elevated troponin on presentation not associated with any chest pain. Patient has no acute EKG changes however this is a new finding. Patient was transferred to telemetry Lovenox continues be escalated to 1 mg/kg. the second troponin was slightlly lower, aspirin will be given unclear how this plays into his altered mental status or encephalopathy on presentation. Heart rate remains controlled without B juliet (4) Altered mental state: Patient here with encephalopathy undetermined whether from Covid or other metabolic source patient will have cultures of urine and blood we will treat for bacterial pneumonia at this time he will remain on airborne precautions as he still within the 2-week period from his initial diagnosis. ,he did have good sleep with trazadone not clear how much depression plays in this, away from family , family also states frequently gets depressed during winter did start effexor increased dosing is tolerant of this Urinalysis and blood cultures negative for infection for metabolic encephalopathy, due to incontinence will have paul placed to avoid skin breakdown and obtain specimen Patient's encephalopathy may be Covid related or perhaps augmented by depression due to constant changes, has not been himself for three weeks according to daughter, will get MRI brain to ruler out stroke MRI brain 06/22 with evidence of acute/subacute infarcts, likely cause of mental status changes will taper off decadron quickly will stop Effexor as stroke more likely the cause (5) Ulcerative colitis: Patient on mesalamine for ulcerative colitis no signs of flare (6) DVT prophylaxis: Covid appropriate DVT prophylaxis Admission and Anticipated Discharge Date Admission Date: June 15, 2020 Subjective patient resting comfortably, not very compliant with treatment reviewed results of MRI with him, will call his daughter awaiting final consultation from Dr Ingrid mc discuss with her personally, she recommended CTA head and neck as well as echocardiogram patient is eating a little but not great breathing well, on room air today, no distress, no fever, all vitals stable Review of Systems Review of Systems: Unobtainable due to cognitive status (would not respond to questions) Physical Exam Constitutional: well developed, + thin and comfortable; no acute distress Neck: trachea midline, no thyromegaly Respiratory: normal respiratory effort, lungs clear to auscultation Cardiovascular: RRR, no murmur, no edema Gastrointestinal (Abdomen): normal bowel sounds, soft, nontender, no hepatosplenomegaly Musculoskeletal: no cyanosis or clubbing, extremities motor strength 5/5 Skin: no rashes, warm and dry Neurologic: patellar DTR's 2+ bilat, sensation intact and PERRL, EOMI, accommodation nl, no face palsy, no dysarthria Psychiatric: Orientation: alert, oriented to person, oriented to place and cooperative; + not oriented to time Affect: + flat affect Mood: + depressed mood Lymphatic: no cervical or axillary lymphadenopathy Results & Data Results & Data ([facility]) Vital Signs (Past 12 Hours) Vital Signs Temp Pulse Pulse Resp BP BP Pulse Ox 06/23/20 11:09 36.7 C 59 L 16 138/72 92 06/23/20 07:25 36.7 C 61 16 144/71 H 91 06/23/20 06:18 56 L 06/23/20 06:03 36.7 C 57 L 18 141/61 H 90 Laboratory Results Laboratory Results - last 24 hr 06/22/20 06/23/20 06:42 12:14 Estimat Average Glucose 128 Hemoglobin A1c 6.1 H Triglycerides 179 H Cholesterol 150 LDL Cholesterol, Calc 70 VLDL Cholesterol, Calc 36 HDL Cholesterol 44 Cholesterol/HDL Ratio 3 Diagnostic Findings MRI brain IMPRESSION: 1. Acute versus subacute subcentimeter infarcts of the right greater than left watershed distributions of the centrum semiovale with additional punctate foci noted within the left parietal and right occipital lobes. 2. No acute intracranial hemorrhage or midline shift. 3. Age-related involutional changes with chronic microvascular ischemic disease. Medications Administered Current Inpatient Medications Acetaminophen (Acetaminophen 500 Mg Tab) 1,000 mg PO Q6H PRN PRN Reason: Pain Stop: 07/15/20 10:24 Last Admin: 06/22/20 10:18 Dose: 1,000 mg Documented by: Aspirin (Aspirin 81 Mg Ectab) 81 mg PO QAM KYLE Stop: 07/16/20 08:59 Last Admin: 06/23/20 08:27 Dose: 81 mg Documented by: Enoxaparin Sodium (Enoxaparin Inj 30 Mg/0.3 Ml Syr) 30 mg SQ Q12H KYLE Stop: 07/20/20 00:00 Last Admin: 06/23/20 12:02 Dose: Not Given Documented by: Dexamethasone Sodium Phosphate (2 mg/ Syringe) 0.5 mls @ 1 mls/min IV DAILY KYLE Stop: 07/23/20 08:59 Last Admin: 06/23/20 08:27 Dose: 1 mls/min Documented by: Mesalamine (Mesalamine 400 Mg Capdr) 800 mg PO TID KYLE Stop: 07/15/20 10:24 Last Admin: 06/23/20 14:06 Dose: 800 mg Documented by: Miscellaneous Information (Pharmacist Discharge Med Rec Consult) 1 ea N/A UD PRN PRN Reason: Consult Stop: 07/23/20 05:57 Nitroglycerin (Nitroglycerin Sl 0.4 Mg/Tab Tab) 0.4 mg SL UD PRN PRN Reason: Chest Pain Stop: 07/15/20 23:13 Ondansetron HCl (Ondansetron 4 Mg Od Tab) 4 mg PO Q8H PRN PRN Reason: nausea and vomiting Stop: 07/15/20 10:36 Ondansetron HCl (Ondansetron Inj 2 Mg/Ml 2 Ml Vial) 4 mg IV Q6H PRN PRN Reason: Nausea Stop: 07/15/20 10:24 Psyllium Hydrophilic Mucilloid (Psyllium 58.6% Powder Packet) 1 pkt PO DAILY KYLE Stop: 07/15/20 11:29 Last Admin: 06/23/20 08:28 Dose: Not Given Documented by: Vitamin D (Cholecalciferol 1,000 Units 25 Mcg Tab) 1,000 units PO QAM KYLE Stop: 07/15/20 11:29 Last Admin: 06/23/20 08:27 Dose: 1,000 units Documented by: PG Care Time/CCT Total # of Minutes Spent Total Time Spent: 40 Total Time Spent with Patient: Total time spent is greater than 50% in coordination of care (as documented) at patient's floor/unit and/or counseling patient: Coding Level of Care Code 92007 Subseq Hosp Care Lvl 3 Diagnoses Stroke I63.9 COVID-19 U07.1 Elevated troponin R77.8 Altered mental state R41.82 Altered mental status type: unspecified Ulcerative colitis K51.90 DVT prophylaxis Z29.9 (1) Altered mental state Altered mental status type: unspecified Qualified Code(s): R41.82 - Altered mental status, unspecified
--- NOTE | 2020-06-23 16:27 | XCELERA ---
[id number]
[2020-06-23] MEDS ORDERED: OPTIRAY 320 125ml IV ONE (22:14)
[2020-06-24] MEDS: ENOXAPARIN INJ 30 MG/0.3 ML SYR SQ SCH ×3 (00:11→23:01)
--- NOTE | 2020-06-24 07:20 | CT Scan Report ---
CT angio neck with con, CT angio head wo/w CLINICAL HISTORY: 80 years-old Male with stroke. Acute strokelike symptoms COMPARISON STUDY: Brain MRI 06/23/2020 TECHNIQUE: Following the IV administration of 120 mL of Optiray 320, CT angiogram of the head and nec k was performed from the aortic arch to the skull apex. Images are reviewed in the axial, sagittal, a nd coronal planes. 3-D MIPS images are created and assessed. IV contrast was administered without com plication. All measurements were calculated based on NASCET criteria. Noncontrast head CT was also ob tained. A dose lowering technique was utilized adhering to the principles of ALARA. CT DOSE: 1080.77 mGy.cm FINDINGS: CT HEAD: Age-related involutional changes. Patchy white matter hypodensities are suggestive of chronic microva scular ischemic disease. Tiny punctate acute versus subacute infarcts of the watershed distributions of the centrum semiovale are redemonstrated and better evaluated on comparison MRI. No acute intracra nial hemorrhage, midline shift or abnormal extra-axial collection. No acute or subacute territorial i nfarct. Probable remote lacunar infarcts of the lentiform nuclei with associated calcifications. There is no acute calvarial fracture. The mastoid air cells and middle ear cavities are clear. Soft t issues are unremarkable. Prior bilateral lens replacement. CTA HEAD AND NECK: Moderate mixed plaque of the thoracic aortic arch. Patency of the innominate and imaged subclavian ar teries. There is mild luminal narrowing at the origin of the left common carotid artery secondary to atheromatous plaque. There is mild atheromatous plaque of the bilateral carotid bulbs and proximal ce rvical segments of the internal carotid arteries without significant stenosis. Multifocal luminal carey rowing of the cavernous and supraclinoid segments of the internal carotid arteries secondary to ather omatous plaque with moderate luminal narrowing involving the left carotid terminus, image 88 series 5 . Multifocal mild to moderate luminal narrowing is noted throughout the bilateral M1 segments of the middle cerebral arteries. The anterior cerebral arteries are widely patent. Codominant vertebral arteries are widely patent. The basilar artery is also widely patent. Moderate l uminal narrowing involves the mid aspect of the right P1 segment on image 84 series 5. The left poste rior cerebral arteries unremarkable. Cerebral venous sinuses appear patent. There is no abnormal intr acranial enhancement. Multifocal moderate subpleural predominant groundglass opacities of the lung apices. No pneumothorax. Mildly heterogeneous thyroid. No adenopathy. Degenerative changes are noted throughout the cervical spine. IMPRESSION: 1. No aneurysm, dissection, high-grade stenosis or proximal branch occlusion. 2. Moderate multifocal luminal narrowing of the middle cerebral arteries and right posterior cerebral artery secondary to atherosclerotic vascular disease. 3. Acute versus subacute subcentimeter infarcts of the watershed distributions of the right greater t alvares left centrum semiovale distributions are better seen and characterized on comparison brain MRI. 4. No acute intracranial hemorrhage. 5. Biapical subpleural groundglass opacities are suspicious for viral pneumonia. ACT 112: Negative or not required by law. The above report was generated using voice recognition software. It may contain grammatical, syntax o r spelling errors. Electronically signed by: Gideon Goodrich M.D. 06/24/2020 7:18 AM
[2020-06-24 08:13] LABS: Basophils # (auto) 0.02 K/uL (0-0.2); Basophils % (auto) 0.2 %; Eosinophils # (auto) 0.15 K/uL (0-0.5); Eosinophils % (auto) 1.3 %; Hematocrit (blood only) 44.6 % (42-52); Hemoglobin 15.1 g/dL (14.0-18.0); Immature Granulocytes # (auto) 0.16 K/uL (0.00-0.02); Immature Granulocytes % (auto) 1.4 %; Lymphocytes % (auto) 14.9 %; Mean Corpuscular Hgb Conc 33.9 g/dL (32-36); Mean Corpuscular Volume 88.7 fL (80-100); Mean Platelet Volume 10.2 fL (7.4-10.4); Monocytes # (auto) 0.69 K/uL (0.11-0.59); Neutrophils # (auto) 8.71 K/uL (1.4-6.5); Neutrophils % (auto) 76.2 %; Platelet Count 208 K/uL (130-400); RDW Coefficient of Variation 13.4 % (11.5-14.5); RDW Standard Deviation 42.9 fL (36.4-46.3); Red Blood Count 5.03 M/uL (4.7-6.1); White Blood Count 11.43 K/uL (4.8-10.8)
[2020-06-24] MEDS: MESALAMINE 400 MG CAPDR PO SCH ×3 (08:22→20:10)
[2020-06-24] MEDS: CHOLECALCIFEROL 1,000 UNITS 25 MCG TAB PO SCH (08:22)
[2020-06-24] MEDS: ASPIRIN 81 MG ECTAB PO SCH (08:23)
[2020-06-24] MEDS: PSYLLIUM 58.6% POWDER PACKET PO SCH (08:23)
[2020-06-24] MEDS: DEXAMETHASONE SOD PHOSPHATE 2 MG in SYRINGE 0 ML IV SCH (08:28)
[2020-06-24 08:43] LABS: BUN Creatinine Ratio 27.2 (10-20); Calcium 9.1 mg/dl (8.5-10.1); Creatinine Clr Calc Pharmacy 64.1 ml/min; Est GFR (African American) 101.1; Est GFR (Non-African American) 87.2; Potassium 3.7 mmol/L (3.5-5.1)
--- NOTE | 2020-06-24 11:14 | Hospitalist Progress Note ---
Date of Service June 24, 2020 Assessment & Plan (1) Stroke: 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 in watershed regions on aspirin already, continue 81mg daily LDL is 70, no need for Lipitor at this time HbA1c is 6.1% BP stable off medications echocardiogram: EF 65% with no ASD CTA head and neck: no severe stenosis, moderate narrowing in middle cerebral arteries and right posterior cerebral artery nothing to intervene on stroke likely due to low flow state, unlikely COVID related work on discharge to rehab at [facility], if not accepted then will need to go home with 24 hour care family updated today (2) COVID-19: Patient returns with acute hypoxic respiratory failure secondary to COVID- 19. Concern for secondary bacterial pneumonia as he was recently was in the hospital He has already completed Remdesivir convalescent plasma completed a full course of decadron, was placed back on 6mg IV decreased to 2mg IV daily x 2 days and will stop today he is on room air for two days, the viral pneumonia has resolved, now dealing with stroke daughter Carol [phone], updated her on 06/23, discussed results of MRI brain (3) Elevated troponin: Patient elevated troponin on presentation not associated with any chest pain. Patient has no acute EKG changes however this is a new finding. Patient was transferred to telemetry Lovenox continues be escalated to 1 mg/kg. the second troponin was slightlly lower, aspirin will be given unclear how this plays into his altered mental status or encephalopathy on presentation. Heart rate remains controlled without B juliet (4) Altered mental state: Patient here with encephalopathy undetermined whether from Covid or other metabolic source patient will have cultures of urine and blood we will treat for bacterial pneumonia at this time he will remain on airborne precautions as he still within the 2-week period from his initial diagnosis. due to constant changes, has not been himself for three weeks according to daughter, will get MRI brain to ruler out stroke MRI brain 06/22 with evidence of acute/subacute infarcts, likely cause of mental status changes will taper off decadron quickly will stop Effexor as stroke more likely the cause (5) Ulcerative colitis: Patient on mesalamine for ulcerative colitis no signs of flare (6) DVT prophylaxis: Covid appropriate DVT prophylaxis Admission and Anticipated Discharge Date Admission Date: June 15, 2020 Subjective patient resting today did not want to talk at all, rolled away from me when I went to examine him he finally mustered some verbal responses but not much discussed that [facility] could take him for rehab on Monday, I think it would be his best chance of a quick recovery he is stable on room air today, vitals stable appreciate consult from Dr. Quintero, reviewed CTA head and neck findings updated family over the phone today Review of Systems Review of Systems: Unobtainable due to cognitive status (won't answer questions) Physical Exam Constitutional: well developed, + thin and comfortable; no acute distress Neck: trachea midline, no thyromegaly Respiratory: normal respiratory effort, lungs clear to auscultation Cardiovascular: RRR, no murmur, no edema Gastrointestinal (Abdomen): normal bowel sounds, soft, nontender, no hepatosplenomegaly Musculoskeletal: no cyanosis or clubbing, extremities motor strength 5/5 Skin: no rashes, warm and dry Neurologic: patellar DTR's 2+ bilat, sensation intact and PERRL, EOMI, accommodation nl, no face palsy, no dysarthria Psychiatric: Orientation: alert, oriented to person, oriented to place and cooperative; + not oriented to time Affect: + flat affect Mood: + dep ressed mood Lymphatic: no cervical or axillary lymphadenopathy Results & Data Results & Data ([facility]) Vital Signs (Past 12 Hours) Vital Signs Temp Pulse Resp BP Pulse Ox 06/24/20 07:53 36.6 C 60 16 108/54 L 90 Laboratory Results Laboratory Results - last 24 hr 06/23/20 06/24/20 06/24/20 12:14 07:49 07:49 WBC 11.43 H RBC 5.03 Hgb 15.1 Hct 44.6 MCV 88.7 MCH 30.0 MCHC 33.9 RDW Std Deviation 42.9 RDW Coeff of Kathrin 13.4 Plt Count 208 MPV 10.2 Immature Gran % (Auto) 1.4 Neut % (Auto) 76.2 Lymph % (Auto) 14.9 [place] % (Auto) 6.0 Eos % (Auto) 1.3 Baso % (Auto) 0.2 Neut # (Auto) 8.71 H Lymph # (Auto) 1.70 [place] # (Auto) 0.69 H Eos # (Auto) 0.15 Baso # (Auto) 0.02 Immature Gran # (Auto) 0.16 H Sodium 138 Potassium 3.7 Chloride 104 Carbon Dioxide 26 Anion Gap 8.0 BUN 21 H Creatinine 0.75 Est Cr Clr Drug Dosing 64.1 Est GFR ( Amer) 101.1 Est GFR (Non-Af Amer) 87.2 BUN/Creatinine Ratio 27.2 H Glucose 72 Estimat Average Glucose 128 Hemoglobin A1c 6.1 H Calcium 9.1 Medications Administered Current Inpatient Medications Acetaminophen (Acetaminophen 500 Mg Tab) 1,000 mg PO Q6H PRN PRN Reason: Pain Stop: 07/15/20 10:24 Last Admin: 06/22/20 10:18 Dose: 1,000 mg Documented by: Aspirin (Aspirin 81 Mg Ectab) 81 mg PO QAM [facility] Stop: 07/16/20 08:59 Last Admin: 06/24/20 08:23 Dose: 81 mg Documented by: Enoxaparin Sodium (Enoxaparin Inj 30 Mg/0.3 Ml Syr) 30 mg SQ Q12H [facility] Stop: 07/20/20 00:00 Last Admin: 06/24/20 00:11 Dose: 30 mg Documented by: Mesalamine (Mesalamine 400 Mg Capdr) 800 mg PO TID [facility] Stop: 07/15/20 10:24 Last Admin: 06/24/20 08:22 Dose: 800 mg Documented by: Miscellaneous Information (Pharmacist Discharge Med Rec Consult) 1 ea N/A UD PRN PRN Reason: Consult Stop: 07/23/20 05:57 Nitroglycerin (Nitroglycerin Sl 0.4 Mg/Tab Tab) 0.4 mg SL UD PRN PRN Reason: Chest Pain Stop: 07/15/20 23:13 Ondansetron HCl (Ondansetron 4 Mg Od Tab) 4 mg PO Q8H PRN PRN Reason: nausea and vomiting Stop: 07/15/20 10:36 Ondansetron HCl (Ondansetron Inj 2 Mg/Ml 2 Ml Vial) 4 mg IV Q6H PRN PRN Reason: Nausea Stop: 07/15/20 10:24 Psyllium Hydrophilic Mucilloid (Psyllium 58.6% Powder Packet) 1 pkt PO DAILY [facility] Stop: 07/15/20 11:29 Last Admin: 06/24/20 08:23 Dose: 1 pkt Documented by: Vitamin D (Cholecalciferol 1,000 Units 25 Mcg Tab) 1,000 units PO QAM KYLE Stop: 07/15/20 11:29 Last Admin: 06/24/20 08:22 Dose: 1,000 units Documented by: PG Care Time/CCT Total # of Minutes Spent Total Time Spent with Patient: Total time spent is greater than 50% in coordination of care (as documented) at patient's floor/unit and/or counseling patient: Coding Level of Care Code 14516 Subseq Hosp Care Lvl 2 Diagnoses Stroke I63.9 COVID-19 U07.1 Elevated troponin R77.8 Altered mental state R41.82 Altered mental status type: unspecified Ulcerative colitis K51.90 DVT prophylaxis Z29.9 (1) Altered mental state Altered mental status type: unspecified Qualified Code(s): R41.82 - Altered mental status, unspecified
--- NOTE | 2020-06-24 14:09 | Neurology Progress Note ---
Date of Service June 24, 2020 Assessment & Plan (1) Stroke: Todd Jett is a 80 yo man w/ PMH of on mesalamine, emphysema, BPH and recent COVID diagnosis who p/t [facility] on 06/16/20 with AMS and worsening hypoxia in the setting of recent COVID, found to have multifocal punctuate watershed regions. Symptom localization: bilateral hemispheric/watershed regions Stroke mechanism: suspected flow failure from diffuse intracranial atherosclerosis, less likely hypercoagulable in the setting of COVID given no LVO signs Stroke WorkUp: - CTA head/neck: multifocal stenosis of bilateral MCAs and right [employer] TER[employer] CARE PHARMACIST 2/2 intracranial atherosclerosis, otherwise no LVO, high grade stenosis or aneurysm noted - MRI brain: multifocal punctuate watershed regions bilaterally (right more than left hemisphere) - TTE: EF 60-65%, mild LVH, mild AR, no ASD - Telemetry: NSR - A1c: 6.1 - FLP: 70 Stroke Management: - Acute treatment: ASA - Continuous cardiac monitoring, 30 day event monitor as outpatient if telemetry here unrevealing - Vitals, Neurochecks, NIHSS per unit routine - BP parameters: SBP CAP 180, no need for scheduled anti-hypertensives at this time, IV Labetalol/Hydralazine PRN for CAP, MAP goal >65 (would start IVFs if needed to help maintain MAP if poor PO intake) - Consult speech, PT, OT for supportive management - Will certified alcohol counselor concerning stroke education, smoking cessation, healthy diet, physical activity, weight loss - Follow up with PCP for assistance with outpatient goals (BP <130/80, LDL <70, A1c <7) - Follow up in neurology clinic in 2-3 months with ESTHER Hooker Secondary Stroke Prevention: - Antiplatelet: ASA 81mg po daily - Anticoagulation: Not indicated at this time - Statin: given intracranial atherosclerosis, start low dose atorvastatin 20mg daily for maximal medical therapy HTN: - BP parameters, as above - No need for BP meds at this time as he is at goal and concern is more for hypotension as the cause of current strokes (vs hypercoagulability in the setting of COVID) FEN/GI: - Diet: Cardiac HH diet and PO meds given absence of bulbar signs or symptoms - Monitor lytes and replete PRN Glucose Control: - Sliding scale insulin and accuchecks per primary team to avoid hyperglycemia Thank you for this interesting consult. Plan of care was discussed with primary team. Please call with any questions. (2) COVID-19: (3) Altered mental state: Admission and Anticipated Discharge Date Admission Date: June 15, 2020 Subjective NAEs overnight. Continues to be drowsy and confused. Review of Systems Review of Systems: Unobtainable due to cognitive status Results & Data ([facility]) Vital Signs (Past 12 Hours) Vital Signs Temp Pulse Resp BP Pulse Ox 06/24/20 07:53 36.6 C 60 16 108/54 L 90 Exam (Neuro) Physical Exam: General Exam: GEN: NAD, sitting in bed. HEENT: No conjunctival injection, no rhinorrhea. CV: RRR, no peripheral edema PULM: Nonlabored respirations on room air. Neuro Exam: MS: Drowsy this afternoon, would roll over not answer questions. Inattentive. MOTOR: Normal bulk and tone. No pronator drift. All extremities antigravity without drift REFLEXES: deferred, unable to participate in this portion of examination SENSORY: Intact to LT without extinction to double simultaneous stimuli. COORDINATION: No dysmetria or ataxia on observed movements GAIT: deferred given physical status NIH STROKE SCALE 1A. Level of Consciousness (0-3) = 0 1B. LOC Questions (0-2) = 1 1C. LOC Commands (0-2) = 0 2. Best Horizontal Gaze (0-2) = 0 3. Visual [place] (0-3) = 0 4. Facial Palsy (0-3) = 0 5. Motor Arm Right (0-4) = 0 Left (0-4) = 0 6. Motor Leg Right (0-4) = 0 Left (0-4) = 0 7. Limb Ataxia (0-2) = 0 8. Sensory (0-2) = 0 9. Best Language (0-3) = 0 10. Dysarthria (0-2) = 0 11. Extinction and Inattention (0-2) = 0 NIHSS TOTAL = 1 PG Care Time/CCT Total # of Minutes Spent Total Time Spent with Patient: Total time spent is greater than 50% in coordination of care (as documented) at patient's floor/unit and/or counseling patient: Coding Level of Care Code 90050 Subseq Hosp Care Lvl 2 Diagnoses Stroke I63.9 COVID-19 U07.1 Altered mental state R41.82 Altered mental status type: unspecified (1) Altered mental state Altered mental status type: unspecified Qualified Code(s): R41.82 - Altered mental status, unspecified
[2020-06-25 05:55] LABS: Basophils # (auto) 0.01 K/uL (0-0.2); Basophils % (auto) 0.1 %; Eosinophils % (auto) 1.6 %; Hematocrit (blood only) 43.9 % (42-52); Hemoglobin 14.8 g/dL (14.0-18.0); Immature Granulocytes # (auto) 0.09 K/uL (0.00-0.02); Immature Granulocytes % (auto) 0.7 %; Lymphocytes # (auto) 2.09 K/uL (1.2-3.4); Lymphocytes % (auto) 17.1 %; Mean Corpuscular Hemoglobin 30.1 pg (25-34); Mean Corpuscular Hgb Conc 33.7 g/dL (32-36); Mean Corpuscular Volume 89.4 fL (80-100); Mean Platelet Volume 10.3 fL (7.4-10.4); Monocytes # (auto) 0.67 K/uL (0.11-0.59); Monocytes % (auto) 5.5 %; Neutrophils # (auto) 9.16 K/uL (1.4-6.5); Platelet Count 214 K/uL (130-400); RDW Coefficient of Variation 13.7 % (11.5-14.5); RDW Standard Deviation 44.7 fL (36.4-46.3); Red Blood Count 4.91 M/uL (4.7-6.1); White Blood Count 12.22 K/uL (4.8-10.8)
[2020-06-25 06:19] LABS: BUN Creatinine Ratio 34.6 (10-20); Creatinine Clr Calc Pharmacy 67.7 ml/min; Est GFR (African American) 103.4; Est GFR (Non-African American) 89.2
[2020-06-25] MEDS: MESALAMINE 400 MG CAPDR PO SCH ×3 (08:51→21:43)
[2020-06-25] MEDS: CHOLECALCIFEROL 1,000 UNITS 25 MCG TAB PO SCH (08:52)
[2020-06-25] MEDS: ASPIRIN 81 MG ECTAB PO SCH (08:52)
[2020-06-25] MEDS: PSYLLIUM 58.6% POWDER PACKET PO SCH ×2 (08:52→09:00)
[2020-06-25] MEDS: ATORVASTATIN 20 MG TAB PO SCH (12:29)
[2020-06-25] MEDS: ENOXAPARIN INJ 30 MG/0.3 ML SYR SQ SCH (12:31)
--- NOTE | 2020-06-25 16:23 | Hospitalist Progress Note ---
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 in watershed regions on aspirin already, continue 81mg daily LDL is 70, but based on moderate plaque in cerebral circulation, will start Lipitor 20mg daily HbA1c is 6.1% BP stable off medications echocardiogram: EF 65% with no ASD CTA head and neck: no severe stenosis, moderate narrowing in middle cerebral arteries and right posterior cerebral artery nothing to intervene on stroke likely due to low flow state, unlikely COVID related work on discharge to rehab at [facility], plan for tomorrow, family in agreement follow up with neurology in 2-3 months (3) COVID-19: Patient returned with acute hypoxic respiratory failure secondary to COVID-19. Concern for secondary bacterial pneumonia as he was recently was in the hospital He has already completed Remdesivir convalescent plasma completed a full course of decadron, was placed back on 6mg IV decreased to 2mg IV daily x 2 days and then stopped 06/24 he is on room air for three days, the viral pneumonia has resolved, now dealing with stroke and delirium (4) Elevated troponin: Patient elevated troponin on presentation not associated with any chest pain. Patient has no acute EKG changes however this is a new finding. Patient was transferred to telemetry Lovenox continues be escalated to 1 mg/kg. the second troponin was slightlly lower, aspirin will be given unclear how this plays into his altered mental status or encephalopathy on presentation. Heart rate remains controlled without B juliet (5) Ulcerative colitis: Patient on mesalamine for ulcerative colitis no signs of flare (6) DVT prophylaxis: Covid appropriate DVT prophylaxis Admission and Anticipated Discharge Date Admission Date: June 15, 2020 Subjective patient more conversive today his said that he called her while eating breakfast, asked her to come take him home he was talking more with me he participated with therapy although he needed motivation and he was argumentative walked 55 feet, shuffled gait, one LOB episode but corrected easily click scores 20 for both PT/OT family in complete agreement with rehab at [facility] long discussion with daughter Carol and Marilyn, plan for transport to [facility] tomorrow discussed diagnosis with Dr. Quintero, she doubts the small strokes are the cause of cognitive impairment more likely delirium, 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 I shared this with his family they hope that he will get stronger after some rehab and then return home, will work to improve his cognitive status they understand it could take weeks or longer, could be a degree of permanent impairment Review of Systems Review of Systems: Unobtainable due to cognitive status Physical Exam Constitutional: well developed, + thin and comfortable; no acute distress Neck: trachea midline, no thyromegaly Respiratory: normal respiratory effort, lungs clear to auscultation Cardiovascular: RRR, no murmur, no edema Gastrointestinal (Abdomen): normal bowel sounds, soft, nontender, no hep atosplenomegaly Musculoskeletal: no cyanosis or clubbing, extremities motor strength 5/5 Skin: no rashes, warm and dry Neurologic: patellar DTR's 2+ bilat, sensation intact and PERRL, EOMI, accommodation nl, no face palsy, no dysarthria Psychiatric: Orientation: alert, oriented to person, oriented to place and + guarded; + not oriented to time Affect: + flat affect Mood: + depressed mood Lymphatic: no cervical or axillary lymphadenopathy Results & Data Results & Data ([facility]) Vital Signs (Past 12 Hours) Vital Signs Temp Pulse Resp BP BP Pulse Ox 06/25/20 14:53 36.9 C 74 20 113/62 90 06/25/20 08:20 36.5 C 60 18 117/68 92 Laboratory Results Laboratory Results - last 24 hr 06/25/20 06/25/20 05:42 05:42 WBC 12.22 H RBC 4.91 Hgb 14.8 Hct 43.9 MCV 89.4 MCH 30.1 MCHC 33.7 RDW Std Deviation 44.7 RDW Coeff of Kathrin 13.7 Plt Count 214 MPV 10.3 Immature Gran % (Auto) 0.7 Neut % (Auto) 75.0 Lymph % (Auto) 17.1 Toole % (Auto) 5.5 Eos % (Auto) 1.6 Baso % (Auto) 0.1 Neut # (Auto) 9.16 H Lymph # (Auto) 2.09 Toole # (Auto) 0.67 H Eos # (Auto) 0.20 Baso # (Auto) 0.01 Immature Gran # (Auto) 0.09 H Sodium 138 Potassium 4.0 Chloride 106 Carbon Dioxide 25 Anion Gap 7.0 BUN 25 H Creatinine 0.71 Est Cr Clr Drug Dosing 67.7 Est GFR ( Amer) 103.4 Est GFR (Non-Af Amer) 89.2 BUN/Creatinine Ratio 34.6 H Glucose 80 Calcium 9.0 Medications Administered Current Inpatient Medications Acetaminophen (Acetaminophen 500 Mg Tab) 1,000 mg PO Q6H PRN PRN Reason: Pain Stop: 07/15/20 10:24 Last Admin: 06/22/20 10:18 Dose: 1,000 mg Documented by: Aspirin (Aspirin 81 Mg Ectab) 81 mg PO [facility] Stop: 07/16/20 08:59 Last Admin: 06/25/20 08:52 Dose: 81 mg Documented by: Atorvastatin Calcium (Atorvastatin 20 Mg Tab) [facility] [place] Stop: 07/25/20 10:14 Last Admin: 06/25/20 12:29 Dose: 20 mg Documented by: Enoxaparin Sodium (Enoxaparin Inj 30 Mg/0.3 Ml Syr) 30 mg SQ Q12H [facility] Stop: 07/20/20 00:00 Last Admin: 06/25/20 12:31 Dose: 30 mg Documented by: Mesalamine (Mesalamine 400 Mg Capdr) 800 mg PO TID [facility] Stop: 07/15/20 10:24 Last Admin: 06/25/20 12:29 Dose: 800 mg Documented by: Miscellaneous Information (Pharmacist Discharge Med Rec Consult) 1 ea N/A UD PRN PRN Reason: Consult Stop: 07/23/20 05:57 Nitroglycerin (Nitroglycerin Sl 0.4 Mg/Tab Tab) 0.4 mg SL UD PRN PRN Reason: Chest Pain Stop: 07/15/20 23:13 Ondansetron HCl (Ondansetron 4 Mg Od Tab) 4 mg PO Q8H PRN PRN Reason: nausea and vomiting Stop: 07/15/20 10:36 Ondansetron HCl (Ondansetron Inj 2 Mg/Ml 2 Ml Vial) 4 mg IV Q6H PRN PRN Reason: Nausea Stop: 07/15/20 10:24 Psyllium Hydrophilic Mucilloid (Psyllium 58.6% Powder Packet) 1 pkt PO DAILY KYLE Stop: 07/15/20 11:29 Last Admin: 06/25/20 09:00 Dose: Not Given Documented by: Vitamin D (Cholecalciferol 1,000 Units 25 Mcg Tab) 1,000 units PO QAM KYLE Stop: 07/15/20 11:29 Last Admin: 06/25/20 08:52 Dose: 1,000 units Documented by: PG Care Time/CCT Total # of Minutes Spent Total Time Spent: 45 Total Time Spent with Patient: Total time spent is greater than 50% in coordination of care (as documented) at patient's floor/unit and/or counseling patient: 20 minutes on phone with family [address] Quintero 15 minutes reviewing chart, documentation, exam Coding Level of Care Code 40315 Subseq Hosp Care Lvl 3 Diagnoses Delirium R41.0 Stroke I63.9 COVID-19 U07.1 Elevated troponin R77.8 Ulcerative colitis K51.90 DVT prophylaxis Z29.9
[2020-06-26] MEDS: ENOXAPARIN INJ 30 MG/0.3 ML SYR SQ SCH ×2 (01:14→11:42)
[2020-06-26 05:52] LABS: Basophils # (auto) 0.03 K/uL (0-0.2); Basophils % (auto) 0.3 %; Eosinophils # (auto) 0.23 K/uL (0-0.5); Hematocrit (blood only) 45.2 % (42-52); Hemoglobin 15.2 g/dL (14.0-18.0); Immature Granulocytes # (auto) 0.12 K/uL (0.00-0.02); Immature Granulocytes % (auto) 1.1 %; Lymphocytes # (auto) 1.83 K/uL (1.2-3.4); Lymphocytes % (auto) 16.2 %; Mean Corpuscular Hemoglobin 30.2 pg (25-34); Mean Corpuscular Hgb Conc 33.6 g/dL (32-36); Mean Corpuscular Volume 89.9 fL (80-100); Mean Platelet Volume 10.1 fL (7.4-10.4); Monocytes # (auto) 0.67 K/uL (0.11-0.59); Monocytes % (auto) 5.9 %; Neutrophils # (auto) 8.39 K/uL (1.4-6.5); Neutrophils % (auto) 74.5 %; Platelet Count 188 K/uL (130-400); RDW Coefficient of Variation 13.8 % (11.5-14.5); Red Blood Count 5.03 M/uL (4.7-6.1); White Blood Count 11.27 K/uL (4.8-10.8)
[2020-06-26 06:17] LABS: BUN Creatinine Ratio 33.7 (10-20); Calcium 8.5 mg/dl (8.5-10.1); Creatinine Clr Calc Pharmacy 64.1 ml/min; Est GFR (African American) 101.1; Est GFR (Non-African American) 87.2; Potassium 3.9 mmol/L (3.5-5.1)
[2020-06-26] MEDS: CHOLECALCIFEROL 1,000 UNITS 25 MCG TAB PO SCH (07:51)
[2020-06-26] MEDS: ATORVASTATIN 20 MG TAB PO SCH (07:51)
[2020-06-26] MEDS: PSYLLIUM 58.6% POWDER PACKET PO SCH (07:52)
[2020-06-26] MEDS: MESALAMINE 400 MG CAPDR PO SCH (07:52)
[2020-06-26] MEDS: ASPIRIN 81 MG ECTAB PO SCH (07:52)
[2020-06-26] MEDS ORDERED: STROKE PATIENT DISCHARGE STA (09:12)
--- NOTE | 2020-06-26 09:12 | Discharge Summary ---
Date of Service June 26, 2020 Admission HPI Per Admitting Provider COVID-19: Presented with infectious encephalopathy and trouble with ambulation. Onset of symptoms was 06/01/2020. Tested positive for Covid on 06/03/2020. - S/p convalescent plasma on 06/09/2020 - Dexamethasone 6 mg daily x 10 days (Last day: 06/18/2020) - remdesivir final dose (06/13), pts typically receive 5 doses , on on admission and then over the next 4 days, his doses were 06/09,25, 26, 27 28 Pt wanted to go home as encephalopathy had improved, did go home on 06/13, now returns with confusion and worsened hypoxia, x ray with some progressive changes, will re admit for failing outpt care and may now be considered for rehab Principal Diagnosis COVID 19 pneumonia and delirium Discharge Exam Constitutional well developed, + thin and comfortable; no acute distress Neck trachea midline, no thyromegaly Respiratory normal respiratory effort, lungs clear to auscultation Cardiovascular RRR, no murmur, no edema Gastrointestinal (Abdomen) normal bowel sounds, soft, nontender, no hepatosplenomegaly Musculoskeletal no cyanosis or clubbing, extremities motor strength 5/5 Skin no rashes, warm and dry Neurologic patellar DTR's 2+ bilat, sensation intact and PERRL, EOMI, accommodation nl, no face palsy, no dysarthria Psychiatric Orientation: alert, oriented to person, oriented to place and + guarded; + not oriented to time Affect: + flat affect Mood: + depressed mood Lymphatic no cervical or axillary lymphadenopathy Discharge Data Allergies Allergy/AdvReac Type Severity Reaction Status Date / Time No Known Allergies Allergy Verified 06/15/20 06:24 Consultations 06/15/20 07:44 ED Decision to Admit Stat 06/21/20 16:54 Consult Case Management - Discharge Planning Routine 06/23/20 05:58 Consult Case Management - Discharge Planning Routine Consult Neurology Routine Ordered Studies 06/23/20 02:28 MR brain wo con Urgent 06/23/20 13:08 CT angio head wo/w Routine CT angio neck with con Routine Hospital Course (1) Delirium: delirium and 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 well documented cases of this seen the past year 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 likely that strokes are too small to be causing cognitive changes go to rehab for physical strength and then return home for supportive care could take weeks or longer to improve, could have a degree of permanent impairment family understands this, they hope that being back home will help his brain recover (2) Stroke: 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 in watershed regions on aspirin already, continue 81mg daily LDL is 70, but based on moderate plaque in cerebral circulation, will start Lipitor 20mg daily HbA1c is 6.1% BP stable off medications echocardiogram: EF 65% with no ASD CTA head and neck: no severe stenosis, moderate narrowing in middle cerebral arteries and right posterior cerebral artery nothing to intervene on stroke likely due to low flow state, unlikely COVID related work on discharge to rehab at [facility], family in agreement follow up with neurology in 2-3 months consider Holter monitor at home once he is recovered to rule out paroxysmal afib (3) COVID-19: Patient returned with acute hypoxic respiratory failure secondary to COVID-19. Concern for secondary bacterial pneumonia as he was recently was in the hospital He has already completed Remdesivir convalescent plasma completed a full course of decadron, was placed back on 6mg IV decreased to 2mg IV daily x 2 days and then stopped 06/24 he is on room air for four days, the viral pneumonia has resolved, now dealing with stroke and delirium (4) Elevated troponin: Patient elevated troponin on presentation not associated with any chest pain. Patient has no acute EKG changes however this is a new finding. Patient was transferred to telemetry Lovenox continues be escalated to 1 mg/kg. the second troponin was slightlly lower, aspirin will be given unclear how this plays into his altered mental status or encephalopathy on presentation. Heart rate remains controlled without B juliet (5) Ulcerative colitis: Patient on mesalamine for ulcerative colitis no signs of flare (6) DVT prophylaxis: Covid appropriate DVT prophylaxis Total Time Total Time Spent Total Time Spent (In Minutes): 35 minutes Total Time Includes: Examination of the Patient, Discharge Planning, Medication Reconciliation, Communication With Other Providers (Dr Quintero) and Other (kamlesh menaussed plans with family over the phone) Discharge Plan Discharge Items Patient Disposition: Transfer Inpatient Rehab Fac Reason For Visit: ACUTE HYPOXIC RESPIRATORY FAILURE Discharge Diagnosis: COVID 19 pneumonia COVID 19 delirium Small ischemic strokes, bilateral Condition on Discharge: Good Goals: improve strength and mobility improve cognition return to home after rehab Activity: Resume your previous activity Weightbearing: Full weightbearing Non-emergency contact: Primary Care Provider Call non-emergency contact if: you have any medication questions and your symptoms worsen Follow-up/Referrals: Anay Barrios MD [Primary Care Provider] - (1 week after discharge from rehab) Lucas,Tamie Interiano PA-C [Physician Shake Packer] - (2-3 months from now) Diet: Regular Addtl Attending Provider Instructions: Medications: - ASPIRIN: 81mg daily for stroke prevention - LIPITOR: 20mg daily for stroke prevention COVID 19 with complications of pneumonia and delirium pneumonia is resolved, he has been off oxygen for 4-5 days and no respiratory distress, no longer on dexamethasone ongoing issue is delirium which has been going on for 2 weeks has issues with short term memory, can be uncooperative and argumentative he is not eating as well as normal, he is less mobile, shuffling gait at baseline he is highly functional 80 yo, lives independently with his , 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 family in agreement with rehab to get stronger and then come back home per neurology, delirium could last weeks or longer, unclear picture at this time Stroke he had an MRI of the brain that showed small bilateral areas of subacute and acute ischemia primarily in watershed regions likely mediated by low flow state, hypoxia from pneumonia, moderate atherosclerosis of cerebral vasculature neurology does not feel that the cognitive impairment is due to stroke recommend Lipitor and aspirin for secondary stroke prevention once he is more compliant could get a 30 day monitor at home to rule out afib, never had afib while admitted Risk Factors for Stroke: You can reduce your chances of stroke by working with your medical provider to adopt a healthy lifestyle. Some specific ways to lower your chance of stroke are: * If you are a smoker, now is the time to stop smoking cigarettes * If you are diabetic, improve the control of your blood sugars * Avoid excessive amounts of alcohol * Control high blood pressure * Lose weight if you are overweight * Be sure to lead an active lifestyle * Eat a healthy diet low in salt, cholesterol and fat You should know about other risk factors for stroke that you are unable to control. These include: * Age 55 years or older * Male gender * Certain racial groups: , or / * Family History of Stroke, Mini stroke or Heart Attack * Sickle Cell Disease Follow Up: It is important for you to keep your follow up appointments with your medical provider. Who to Call and When: Medical Emergencies: Call 911 immediately if you experience any of the following warning signs and symptoms of Stroke: * Sudden numbness or weakness of the face, arm or leg, especially on one side of the body * Sudden confusion, trouble speaking or understanding * Sudden trouble seeing in one or both eyes * Sudden trouble walking, dizziness, loss of balance or coordination * Sudden severe headache with no cause Do not delay calling 911 if you experience any warning signs or symptoms of a stroke. Delay in seeking medical attention may affect what treatments can be given to you. . Pending Studies at Discharge: No Stand-Alone Forms: My [facility] Skilled Items Patient informed of condition?: Yes DNR: No Discharge Level of Care: Acute rehab Communicable Disease: No Discharge Prognosis: Stable Lines: None Urinary Catheter: No Medications and DC Order Prescriptions: New atorvastatin 20 mg Tablet 20 mg PO QAM 30 Days Qty: 30 RF: 3 aspirin 81 mg Tablet,Delayed Release (Dr/Ec) 81 mg PO QAM 30 Days Qty: 30 RF: 3 Continued acetaminophen [Tylenol Extra Strength] 500 mg Tablet 1,000 mg PO Q6H PRN (Reason: Pain) RF: 0 Metamucil 3.4 gram/5.4 gram Powder 1 tbsp PO DAILY RF: 0 Zinc Gummies 1 tab PO DAILY RF: 0 mesalamine [Delzicol] 400 mg Capsule (With Del Rel Tablets) 800 mg PO TID RF: 0 cholecalciferol (vitamin D3) [Vitamin D3] 25 mcg (1,000 unit) Tablet 25 mcg PO QAM RF: 0 sildenafil 100 mg tablet 100 mg PO DIRECTED PRN (Reason: sexual activity) RF: 0 ondansetron 4 mg tablet,disintegrating 4 mg PO Q8H PRN (Reason: nausea and vomiting) Qty: 12 RF: 0 Discontinued dexamethasone 6 mg tablet 6 mg PO DAILY Qty: 5 RF: 0 Discharge Orders: Discharge Order (Routine); Ordered 06/26/20 Ordered By: Miguel Angel Brooks Admission Data Admit Date/Time: 06/15/20 08:01 Attending Provider: Miguel Angel Brooks Admit Provider: Todd Burden Primary Care Provider: Anay Barrios Other Providers: [facility] ; Rashel Ferrera [place] ; Todd Burden ; Kushal Goncalves ; Alec Reno ; Lupe Quintero ; Tamie Zavala Other Interventions: Discharge Summary Assessment (RN) Last Done: 06/26/20 12:25 Coding Level of Care Code D/C Day Management >30 mins Diagnoses Delirium R41.0 Stroke I63.9 COVID-19 U07.1 Elevated troponin R77.8 Ulcerative colitis K51.90 DVT prophylaxis Z29.9
== END 2020-06-26 13:41 | DRG 177 ==
LOC: ED 06:03 → SUATTDRO 08:01 → 3W 08:01 → 2S 18:45 → 3N 06-22 15:52 → 2N 06-23 05:39

== ENCOUNTER 2023-12-05 09:21 | Inpatient (IN) ==
--- NOTE | 2023-11-20 16:14 | PAT Medication Instructions ---
Medication Instructions Date of Service November 20, 2023 Home Medications Medication Instructions Recorded aspirin 81 mg tablet,delayed 81 mg PO QAM #30 tabs 08/19/20 release albuterol sulfate 90 mcg/actuation 2 inh inhalation Q6H PRN shortness 08/24/22 breath activated powder inhaler of breath or wheezing #1 ea sildenafil 100 mg tablet 100 mg PO DAILY PRN sexual 11/22/22 activity #10 tabs clotrimazole 1 % topical cream 1 applic topical BID #30 grams 07/24/23 (Lotrimin AF (clotrimazole)) fluticasone fur. 100 mcg-umeclid 1 inh inhalation DAILY #28 ea 07/24/23 62.5 mcg-vilant 25 mcg inhalat.powder (Trelegy Ellipta) hydrocortisone 100 mg/60 mL enema 100 mg (60 mL) ME DAILY Ulcerative 07/24/23 (Cortenema) colitis 7 days #420 mL triamcinolone acetonide 0.1 % 1 applic topical BID #30 grams 07/24/23 topical cream varenicline 0.5 mg (11)-1 mg (42) See Rx Instructions .Route 07/24/23 tablets in a dose pack (Chantix .COMPLEX #53 ea Starting Month Box) varenicline 1 mg tablet (Chantix 1 mg PO BID #60 tabs 07/24/23 Continuing Month Box) ciclopirox 8 % topical solution 1 applic topical DAILY 6 months 08/16/23 #6.6 mL cholecalciferol (vitamin D3) 25 mcg (1,000 unit) tablet (Vitamin D3) 25 mcg PO Q AM aspirin 81 mg tablet,delayed release 81 mg PO QAM albuterol sulfate 90 mcg/actuation breath activated powder inhaler 2 inh inhalation Q6H PRN shortness of breath or wheezing sildenafil 100 mg tablet 100 mg PO DAILY PRN sexual activity clotrimazole 1 % topical cream (Lotrimin AF (clotrimazole)) 1 applic topical BID fluticasone fur. 100 mcg-umeclid 62.5 mcg-vilant 25 mcg inhalat.powder (Trelegy Ellipta) 1 inh inhalation DAILY hydrocortisone 100 mg/60 mL enema (Cortenema) 100 mg (60 mL) ME DAILY Ulcerative colitis triamcinolone acetonide 0.1 % topical cream 1 applic topical BID varenicline 0.5 mg (11)-1 mg (42) tablets in a dose pack (Chantix Starting Month Box) See Rx Instructions .Route .COMPLEX varenicline 1 mg tablet (Chantix Continuing Month Box) 1 mg PO BID ciclopirox 8 % topical solution 1 applic topical DAILY 6 months ondansetron 4 mg disintegrating tablet 4 mg PO Q8H PRN Nausea oxycodone-acetaminophen 5 mg-325 mg tablet 1 tab PO Q6H PRN Pain cyanocobalamin (vitamin B-12) 1,000 mcg tablet 1,000 mcg PO DAILY fluoxetine 20 mg capsule 20 mg PO QAM mesalamine 400 mg capsule (with delayed release tablets inside) (Delzicol) 400 mg PO BID rosuvastatin 10 mg tablet 10 mg PO QAM valsartan 40 mg tablet 40 mg PO QAM ASK your prescriber and surgeon aspirin 81 mg tablet,delayed release 81 mg PO QAM mesalamine 400 mg capsule (with delayed release tablets inside) (Delzicol) 400 mg PO BID STOP taking 24 hours before surgery clotrimazole 1 % topical cream (Lotrimin AF (clotrimazole)) 1 applic topical BID ciclopirox 8 % topical solution 1 applic topical DAILY 6 months DO NOT take the morning of surgery cholecalciferol (vitamin D3) 25 mcg (1,000 unit) tablet (Vitamin D3) 25 mcg PO QAM sildenafil 100 mg tablet 100 mg PO DAILY PRN sexual activity hydrocortisone 100 mg/60 mL enema (Cortenema) 100 mg (60 mL) ME DAILY Ulcerative colitis varenicline 0.5 mg (11)-1 mg (42) tablets in a dose pack (Chantix Starting Month Box) See Rx Instructions .Route .COMPLEX varenicline 1 mg tablet (Chantix Continuing Month Box) 1 mg PO BID cyanocobalamin (vitamin B-12) 1,000 mcg tablet 1,000 mcg PO DAILY valsartan 40 mg tablet 40 mg PO QAM Take morning of surgery With a small sip of water, OTHERWISE NOTHING TO EAT OR DRINK AFTER MIDNIGHT: albuterol sulfate 90 mcg/actuation breath activated powder inhaler 2 inh inhalation Q6H PRN shortness of breath or wheezing (use if needed; please bring rescue inhaler with you to hospital day of surgery if possible) fluticasone fur. 100 mcg-umeclid 62.5 mcg-vilant 25 mcg inhalat.powder (Trelegy Ellipta) 1 inh inhalation DAILY ondansetron 4 mg disintegrating tablet 4 mg PO Q8H PRN Nausea (if needed) oxycodone-acetaminophen 5 mg-325 mg tablet 1 tab PO Q6H PRN Pain (if needed) fluoxetine 20 mg capsule 20 mg PO QAM rosuvastatin 10 mg tablet 10 mg PO QAM Take evening before surgery albuterol sulfate 90 mcg/actuation breath activated powder inhaler 2 inh inhalation Q6H PRN shortness of breath or wheezing (if needed) fluticasone fur. 100 mcg-umeclid 62.5 mcg-vilant 25 mcg inhalat.powder (Trelegy Ellipta) 1 inh inhalation DAILY varenicline 0.5 mg (11)-1 mg (42) tablets in a dose pack (Chantix Starting Month Box) See Rx Instructions .Route .COMPLEX varenicline 1 mg tablet (Chantix Continuing Month Box) 1 mg PO BID ondansetron 4 mg disintegrating tablet 4 mg PO Q8H PRN Nausea (if needed) oxycodone-acetaminophen 5 mg-325 mg tablet 1 tab PO Q6H PRN Pain (if needed) Other Notes If you have any questions please call us at [phone] or [phone] or [phone] or [phone]
--- NOTE | 2023-11-21 11:31 | Anesthesiology Consultation ---
Date of Service November 21, 2023 Assessment & Plan (1) Encounter for pre-operative examination: Plan - awaiting [place] PCP clearance and updated echocardiogram. - echocardiogram: needs updated per Dr. Greenwood and he advised contacting [place] PCP for clearance notation; workload note was sent. Patient and his made aware, denied additional questions or concerns. Surgeon's office made aware. [place] PCP Dr. Cash advised order was placed for echocardiogram. - overnight guest request: He is requesting his remain overnight with him due to PTSD from 33 day isolation during COVID illness late 2018/early 2019. They are aware determination is usually made the day of surgery and they seemed comfortable with this, denied any additional questions or concerns. Chart Review Chart Review: Pending: Refer to Additional Notes / Consult section and Patient seen in Pre Admission Testing Teaching & Discussion Pre-Anesthesia Teaching/Discussion Notes: Instructed NPO after midnight before surgery, except medications with 15 cc of water. Medication instructions provided according to the PAT guidelines. History Surgery Operation Date: 12/05/23 10:40 Proposed Procedures p Left Total Hip Revision Arthroplasty - Sterling Hall MD Height/Weight Height: 5 ft 7 in Weight: 71.8 kg Allergies Allergy/AdvReac Type Severity Reaction Status Date / Time oxycodone AdvReac Intermediate GI upset Verified 11/21/23 11:32 lisinopril AdvReac Mild Cough Verified 11/20/23 14:57 Medications Home Medications Medication Instructions Recorded Confirmed Last Taken cholecalciferol (vitamin D3) 25 25 mcg PO QAM 06/06/20 11/20/23 06/05/20 mcg (1,000 unit) tablet (Vitamin D3) aspirin 81 mg tablet,delayed 81 mg PO QAM #30 tabs 08/19/20 11/20/23 Unknown release albuterol sulfate 90 mcg/actuation 2 inh inhalation Q6H PRN shortness 08/24/22 11/20/23 Unknown breath activated powder inhaler of breath or wheezing #1 ea sildenafil 100 mg tablet 100 mg PO DAILY PRN sexual 11/22/22 11/20/23 Unknown activity #10 tabs clotrimazole 1 % topical cream 1 applic topical BID #30 grams 07/24/23 11/20/23 Unknown (Lotrimin AF (clotrimazole)) fluticasone fur. 100 mcg-umeclid 1 inh inhalation DAILY #28 ea 07/24/23 11/20/23 Unknown 62.5 mcg-vilant 25 mcg inhalat.powder (Trelegy Ellipta) hydrocortisone 100 mg/60 mL enema 100 mg (60 mL) CO DAILY Ulcerative 07/24/23 11/20/23 Unknown (Cortenema) colitis 7 days #420 mL triamcinolone acetonide 0.1 % 1 applic topical BID #30 grams 07/24/23 11/20/23 Unknown topical cream varenicline 0.5 mg (11)-1 mg (42) See Rx Instructions .Route 07/24/23 11/20/23 Unknown tablets in a dose pack (Chantix .COMPLEX #53 ea Starting Month Box) varenicline 1 mg tablet (Chantix 1 mg PO BID #60 tabs 07/24/23 11/20/23 Unknown Continuing Month Box) ciclopirox 8 % topical solution 1 applic topical DAILY 6 months 08/16/23 11/20/23 Unknown #6.6 mL cyanocobalamin (vitamin B-12) 1,000 mcg PO DAILY 11/20/23 11/20/23 Unknown 1,000 mcg tablet fluoxetine 20 mg capsule 20 mg PO QAM 11/20/23 11/20/23 Unknown mesalamine 400 mg capsule (with 400 mg PO BID 11/20/23 11/20/23 Unknown delayed release tablets inside) (Delzicol) rosuvastatin 10 mg tablet 10 mg PO QAM 11/20/23 11/20/23 Unknown valsartan 40 mg tablet 40 mg PO QAM 11/20/23 11/20/23 Unknown Past Medical History Medical History (Updated 11/21/23 @ 11:44 by Rox Calzada PA-C) Anxiety BPH (benign prostatic hyperplasia) Bruises easily Cardiac murmur mild per pt Chronic back pain epidural steroid injections not providing benefit 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 Physical Exam Vital Signs Vitals BP 109/64 P 70 TEMP 98.0 SP02 96% on RA RESP 18 Physical Patient resting comfortably in chair in no acute distress, alert and oriented, responding appropriately throughout visit Full cervical extension range of motion without pain TMD 3.5 finger breadths Mallampati Score 2 Dentition: multiple caps/crowns and bridge, denies chipped or loose teeth, or implants Lungs: normal respiratory effort. Good air movement, clear throughout to auscultation, no adventitious breath sounds Cardiac: regular rate and rhythm, 2/6 systolic murmur noted, no gallops or rubs Carotid arteries: negative bruit bilat Lab Results Anesthesia Preop Results Results Anesthesia Widget: WBC 8.85 K/ul (4.8-10.8) 11/21/23 Hgb 14.2 g/dl (14.0-18.0) 11/21/23 Hct 45.1 % (42.0-52.0) 11/21/23 Plt 234 K/uL (130-400) 11/21/23 Na 140 mmol/L (136-145) 11/21/23 K 4.0 mmol/L (3.5-5.1) 11/21/23 Cl 107 mmol/L (98-107) 11/21/23 CO2 25 mmol/L (21-32) 11/21/23 BUN 16 mg/dl (6-23) 11/21/23 Creat 0.96 mg/dl (0.6-1.4) 11/21/23 Glucose Level 121 mg/dl (70-99(Fasting)) H 11/21/23 PT 11.1 Seconds (9.0-12.0) 11/21/23 PTT 26 Seconds (21-31) 11/21/23 INR 1.0 (0.9-1.1) 11/21/23 Blood Type AB Positive 11/21/23 Antibody Screen NEGATIVE 11/21/23 Testing Electrocardiogram Date: 11/21/23 NSR, rate 68 bpm Chest X-Ray Date: 12/13/22 No focal parenchymal consolidation. Echocardiogram Date: 06/23/20 EF 60-65% No LV regional wall motion abnormalities Mild cLVH Mild aortic regurgitation Other Testing Chest CT 01/31/23 Stable 4 mm nodule in right lung Chronic changes of emphysema. Increased bullous disease at the lung bases. No active consolidation. Head and neck CTA 06/23/20 1. No aneurysm, dissection, high-grade stenosis or proximal branch occlusion. 2. Moderate multifocal luminal narrowing of the middle cerebral arteries and right posterior cerebral artery secondary to atherosclerotic vascular disease. 3. Acute versus subacute subcentimeter infarcts of the watershed distributions of the right greater than left centrum semiovale distributions are better seen and characterized on comparison brain MRI. 4. No acute intracranial hemorrhage. 5. Biapical subpleural groundglass opacities are suspicious for viral pneumonia.
--- NOTE | 2023-11-30 07:55 | History & Physical Report ---
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 We have been following this along seems to have progressed. He now seems to be having bit more symptoms. And concerned that he may have fractured his remaining polyethylene liner. Ruy some osteolysis but not critical. Plan: We talked about treatment options. After extensive discussion he would like to proceed with revision. Will can take the operating room and remove the poly. Will likely have to remove his cup and reposition this as it does not have much in the way of anteversion. Without repositioning, concerned that he have problems with instability postoperatively. Difficulty moving the copper it is possible he may just convert this to a new liner. Will obviously check the femoral component but I think it is unlikely to be loose. Will be prepared to revise that if needed. There is cements of revision total hip replacement were explained to the patient in depth include but not limited to DVT PE infection neurological and vascular bleeding palm pain limited range of motion stiffness and dislocation persistent pain etc. The patient understands and desires to proceed. He does have some underlying back problems which is this is not going to affect. Will have to have the [employer] explant system available remove the acetabulum if needed. He is planned to be discharged to home with some home health. DVT prophylaxis including thigh-high teds, SCDs, aspirin twice a day. 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 Left hip and groin pain. Primary Care Provider: Marquis Cash MD . 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 He has a history of a left hip replacement done by Dr. Damian over 25 years ago. He did pretty well but over the past several years she developed increased pain discomfort in his hip area. This was initially treated as some bursitis. He is also had some intermittent back problems. More recently he has developed increased pain discomfort in his left hip. He is a very avid golfer and having difficulty doing this. Describes groin pain thigh pain. Is become more debilitating. Limps all the time. X-rays show progressive polyethylene wear. Patient is now indicated for potential revision of this hips. Allergies Allergy/AdvReac Type Severity Reaction Status Date / Time oxycodone AdvReac Intermediate GI upset Verified 11/21/23 11:32 lisinopril AdvReac Mild Cough Verified 11/20/23 14:57 Home Medications Medication Instructions Recorded Confirmed Type cholecalciferol (vitamin D3) 25 25 mcg PO QAM 06/06/20 11/20/23 History mcg (1,000 unit) tablet (Vitamin D3) aspirin 81 mg tablet,delayed 81 mg PO QAM #30 tabs 08/19/20 11/20/23 Rx release albuterol sulfate 90 mcg/actuation 2 inh inhalation Q6H PRN shortness 08/24/22 11/20/23 Rx breath activated powder inhaler of breath or wheezing #1 ea sildenafil 100 mg tablet 100 mg PO DAILY PRN sexual 11/22/22 11/20/23 Rx activity #10 tabs clotrimazole 1 % topical cream 1 applic topical BID #30 grams 07/24/23 11/20/23 Rx (Lotrimin AF (clotrimazole)) fluticasone fur. 100 mcg-umeclid 1 inh inhalation DAILY #28 ea 07/24/23 11/20/23 Rx 62.5 mcg-vilant 25 mcg inhalat.powder (Trelegy Ellipta) hydrocortisone 100 mg/60 mL enema 100 mg (60 mL) OR DAILY Ulcerative 07/24/23 11/20/23 Rx (Cortenema) colitis 7 days #420 mL triamcinolone acetonide 0.1 % 1 applic topical BID #30 grams 07/24/23 11/20/23 Rx topical cream varenicline 0.5 mg (11)-1 mg (42) See Rx Instructions .Route 07/24/23 11/20/23 Rx tablets in a dose pack (Chantix .COMPLEX #53 ea Starting Month Box) varenicline 1 mg tablet (Chantix 1 mg PO BID #60 tabs 07/24/23 11/20/23 Rx Continuing Month Box) ciclopirox 8 % topical solution 1 applic topical DAILY 6 months 08/16/23 11/20/23 Rx #6.6 mL cyanocobalamin (vitamin B-12) 1,000 mcg PO DAILY 11/20/23 11/20/23 History 1,000 mcg tablet fluoxetine 20 mg capsule 20 mg PO QAM 11/20/23 11/20/23 History mesalamine 400 mg capsule (with 400 mg PO BID 11/20/23 11/20/23 History delayed release tablets inside) (Delzicol) rosuvastatin 10 mg tablet 10 mg PO QAM 11/20/23 11/20/23 History valsartan 40 mg tablet 40 mg PO QAM 11/20/23 11/20/23 History Wheeled Walker #1 ea 11/28/23 Rx Past Med/Surg History Problem List 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 Left hip pain Nail fungal infection Tinea pedis Adenomatous polyps Lumbosacral radiculopathy at L4 Tobacco abuse Chronic cough Rotator cuff tear, left Hypertension, benign essential, goal below 140/90 Dyslipidemia Lumbar radicular pain Vitamin B 12 deficiency Urinary incontinence 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 Emphysema, unspecified controlled, rare res inh use, does not use daily one Ulcerative colitis Medical History Chronic back pain epidural steroid injections not providing benefit GERD (gastroesophageal reflux disease) infrequent, stable per pt PTSD (post-traumatic stress disorder) from rehab when had covid > requesting to stay night due to this Bruises easily Anxiety Cardiac murmur mild per pt Elevated BP without diagnosis of hypertension controlled, stable per pt H/O: stroke multiple > May 2019 > due to covid > no residual problems COVID-19 virus infection (~2018) complicated by stroke BPH (benign prostatic hyperplasia) Surgical History Rotator cuff arthropathy of right shoulder replaced H/O colonoscopy 06/20/19 repeat 2yrs History of surgical removal of ganglion cyst L shoulder History of total hip arthroplasty left History of appendectomy History of tonsillectomy History of cataract surgery B/L Family History Aunt Colorectal cancer Denies family history of Ovarian cancer Prostate cancer Myocardial infarction Breast cancer Social History Smoking Status: Current every day smoker Tobacco Type: Cigarettes Cigarettes Per Day: 10-15 cigs per day > advised npo; Second Hand Exposure: No; Do You Dip or Chew Tobacco: No; Hx Alcohol Use: No Hx Substance Use: No Preferred Language: Kinyarwanda Communication Ability: Effective Visual Impairment: Limited Hearing Ability: Normal 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 Beliefs That Will Affect Care: None marital status: Current Living Situation: Spouse current occupational status: retired How many Children do You have: 4 Feels Safe at Home: Yes Childhood Exposure to Second-Hand Smoke: Yes (Mother smoked) Diet: regular Diet Comment: Regular diet caffeine: Yes (Coffee soda) during the past year weight has: decreased > 10 lbs Dental Care, Regularly: Yes Physical Activity Frequency: Daily Seatbelt Use: always Sunscreen Use: No Do you think of yourself as: straight/heterosexual Assistive Devices: Cane, Glasses and Walker Review of Systems All systems reviewed & are unremarkable except as noted in HPI & below. Physical Exam . Physical examination was a healthy elderly male. Looks younger than his stated age. Examination of the left hip reveal patient ambulates with a significant limp. A physical well-healed incision over the posterior lateral side of his hip. His left leg seems to be just a little bit shorter than the right. Got pain with hip motion. No rashes. No knee effusion. He is neurologically intact. Constitutional WD/WN, vitals as above Respiratory normal respiratory effort, lungs clear to auscultation Cardiovascular RRR, no murmur, no edema Gastrointestinal (Abdomen) normal bowel sounds, soft, nontender, no hepatosplenomegaly Results & Data Results & Data Laboratory Results . X-ray of the hip reviewed. Shows an uncemented total hip replacement. Is got significant polyethylene wear. Some fairly mild osteolysis around the acetabulum. No signs of looseness. No signs of foreign body or metal debris. Diagnostic Findings . 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
[~2023-12-05 09:21] MED LIST changes: -ASC400 PO; +ATROPINE SULFATE 0.1 MG/ML 10ML SYR IV PRN; +BUPIVACAINE 0.5 % 5 MG/1 ML PF 10ML VIAL ONE; +DEXAMETHASONE SOD INJ 4 MG/ML VIAL ONE; +LIDOCAINE 2% 2 ML VIAL/AMP(20MG/ML) INFIL ONE; +MIDAZOLAM HCL 1 MG/ML 2ML VIAL ONE; +ONDANSETRON INJ 2 MG/ML 2 ML VIAL IV PRN; +ONDANSETRON INJ 2 MG/ML 2 ML VIAL ONE; +PROPOFOL IV EMULSION 10 MG/ML 20 ML VIAL IV ONE; +ePHEDrine sulfate 50 MG/ML AMP IV PRN; +fentaNYL citrate PF 100 MCG/2 ML VIAL ONE
[2023-12-05] MEDS ORDERED: LIDOCAINE 2% 2 ML VIAL/AMP(20MG/ML) INFIL ONE (09:41)
[2023-12-05] MEDS ORDERED: ROCURONIUM BROMIDE 10 MG/ML 5 ML VIAL IV ONE ×6 (09:41→12:40)
[2023-12-05] MEDS: LR 500ML BOLUS, THEN 15ML/HR IV SCH (10:08)
[2023-12-05] MEDS: CeleBREX 200 MG CAP PO SCH (10:09)
[2023-12-05] MEDS: METOCLOPRAMIDE HCL 10 MG TABLET PO SCH (10:10)
[2023-12-05] MEDS: ACETAMINOPHEN 500 MG TAB PO SCH ×2 (10:10→18:25)
[2023-12-05] MEDS: dexAMETHasone**PF** 10 MG/ML VIAL IV SCH (10:10)
[2023-12-05] MEDS: FAMOTIDINE 20 MG TAB PO SCH (10:10)
[2023-12-05] MEDS: LR 60ML/HR IV SCH (10:10)
--- NOTE | 2023-12-05 10:21 | History & Physical Bridge Note ---
Date of Service December 05, 2023 History & Physical Bridge Note I have examined the patient, reviewed the History & Physical and in the interval since the performance of the History & Physical I have noted the following changes of clinical significance: no changes noted
[2023-12-05] MEDS: TRANEXAMIC ACID 1,000 MG **IV Pre-op IV SCH (10:41)
[2023-12-05] MEDS: ceFAZolin 2000MG 2,000 MG/15 ML SYR IV SCH (10:44)
[2023-12-05] MEDS ORDERED: PHENYLEPHRINE 100MCG/ML 10ML SYR IV ONE (11:07)
[2023-12-05] MEDS ORDERED: ALBUMIN HUMAN 5% 12.5 GM/250 ML VIAL IV ONE (11:14)
[2023-12-05] MEDS ORDERED: METOPROLOL TARTRATE 1 MG/ML VIAL IV ONE (11:17)
[2023-12-05] MEDS ORDERED: PROPOFOL IV EMULSION 10 MG/ML 20 ML VIAL IV ONE (11:26)
[2023-12-05] MEDS ORDERED: fentaNYL citrate PF 100 MCG/2 ML VIAL ONE (11:26)
[2023-12-05] MEDS ORDERED: SUGAMMADEX SODIUM 200 MG/2 ML VIAL IV ONE (11:42)
[2023-12-05] MEDS ORDERED: ePHEDrine sulfate 50 MG/ML AMP ONE (11:50)
[2023-12-05] MEDS ORDERED: SODIUM CHLORIDE 0.9% PF INJ 10 ML VIAL ONE (12:40)
[2023-12-05] MEDS ORDERED: hydrALAZINE HCL 20 MG/ML VIAL ONE (13:08)
[2023-12-05] MEDS: BUPIVACAINE/EPINEPHRINE 0.5% MPF 1:200,000 30 ML VIAL ONE (13:09)
--- NOTE | 2023-12-05 13:22 | Operative Report ---
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 The poly was not completely worn through. There was significant osteolysis around the acetabular component. The femoral component was well-fixed. There was some scratching of the femoral head. Specimens None Anesthesia Type General Complications none Disposition Accompanied Patient To Recovery: No Indications Patient is an 83-year-old gentleman who underwent a left uncemented total hip replacement back in 1996. Over the past several years he developed pain and discomfort in around the hip area. He been treated conservatively. X-rays show significant polyethylene wear with a near complete catastrophic failure. Over the past year he has developed increased pain discomfort felt to come from his hip joint. He said periods where he is having trouble walking. X-rays show progressive polyethylene wear. Patient indicated for revision arthroplasty for polyethylene wear and osteolysis. Description of Procedure Operative implants consist of: 1. Biomet 56 mm ostial Tiede acetabular component with multiple holes. 2. 6.5 cancellous acetabular screws x 5. 3. 28 mm ceramic articular ball with a 0 neck length and a 44 mm bipolar which had. 4. 44 mm dual mobility metal acetabular liner. The patient was taken to the operating, identified, placed on the operating table in the supine position. All contact areas were appropriately padded. IV antibiotic 5 by anesthesia team. A general anesthetic was implemented. The patient was a placed in the right lateral decubitus position. An axillary roll was placed. Distal Birkett position was used for positioning. Left hip and leg were then prepped and draped in usual sterile fashion. A posterolateral approach to the left hip was then performed to a curvilinear incision centered over the greater trochanter. We used the previous incision site. Sharp dissection through subcutaneous tissue down to level the IT band gluteal fascia. The IT band gluteal fascia incised longitudinally in line with skin incision. The IT band was dissected off the lateral femur and the vastus lateralis. The posterior aspect of the hip joint was then exposed. The piriformis and external rotators along with the posterior hip joint capsule were then released from the posterior aspect the hip as a single layer. We are very careful to stay directly on the bone. There was some moderate synovitis. The hip was then internally rotated and dislocated. The femoral head was removed. This took several blows with a mallet to remove the femoral head. The femur was retracted anteriorly. I did an extensive synovectomy. I then used a osteotome to remove the polyethylene. We then sized the polyethylene to a 44. The 2 screws were removed. The [employer] easy out acetabular system was then used to remove the acetabular cup without difficulty at all. We remove this. We then began preparing and placed in the new acetabular component. The acetabular was reamed beginning with a size 51 reamer and progressing up to 55. I did ream a little bit with a 56 reamer and then placed a 56 mm osteophyte In about 20 degrees of anteversion and 40 degrees lateral opening. I did change the version of the cup but markedly in order to maximize stability posteriorly. Of the previous cup was fairly neutral version. This was then fixed with five 6.5 cancellous acetabular screws. Trial liner was placed. Attention drawn the femur. I Twyla slaphammer to the proximal femoral component. We tried to remove this and there was no signs of any motion at all. In light of this we elected to leave this. We then trialed the hip in the neutral head provided full stability appropriate leg lengths. There was a little bit of laxity to the soft tissues but I did not want to lengthen him any further. We elect to place his implants. All trial implants were removed. A dual mobility 44 mm mobile-bearing liner was placed. A 0/28 mm ceramic articular ball was placed followed by a 44 mm dual mobility liner. The hip was located and once again found to be stable. Attention drawn toward closing. Conception. Solution. I did inject locally with 60 cc of absent Marcaine with epinephrine. The posterior capsule was then repaired along with the external rotators to the posterior aspect of the hip and trochanter through drill holes with #2 Tycron suture. The IT band gluteal fascia then closed in 1 PDS suture running fashion for subcutaneous tissue then closed with 2 layer with the deep layer being #1 Vicryl suture and subcutaneous tissue with 2 Dexon suture in a buried interrupted fashion. Skin was closed skin am[place]. Leg was then cleaned and dried a sterile dressing with Xeroform, 4 fours, ABD pad and foam tape was applied. The patient then brought out of general esthesia and transferred to the recovery room in stable condition. Patient tolerated procedure well and there are no complications. Donnell Mancini, my physician assistant producer, was present for the entire procedure. His assistance was required for proper patient positioning, prepping and draping, surgical exposure, retraction, perform the technical details of the operation, placement of the implants, closure of the incision site and placement of sterile bandage. I attest to the content of the Intraoperative Record and any orders documented therein. Any exceptions are noted below.
--- NOTE | 2023-12-05 13:48 | XRay Report ---
XR hip 1V LT w pelvis CLINICAL HISTORY: Postoperative evaluation. COMPARISON: Left hip radiograph October 27, 2023. FINDINGS: Alignment of the revision total left hip arthroplasty is anatomic. There is no periprosthe tic fracture or unexpected radiopaque foreign body. There are skin [place]. Cortical defect/lucency w ithin the anterior cortex of the proximal left femur is similar to CT of June 06, 2020. This is c hronic. IMPRESSION: Expected findings following revision total left hip arthroplasty. ACT 112: Negative or not required by law. Electronically signed by: Alli Perez M.D. 12/05/2023 1:47 PM
[2023-12-05] MEDS: fentaNYL citrate PF 100 MCG/2 ML VIAL IV PRN (13:51)
[2023-12-05 15:09] LABS: Basophils # (auto) 0.04 K/uL (0.00-0.20); Basophils % (auto) 0.3 %; Eosinophils # (auto) 0.04 K/uL (0.00-0.50); Eosinophils % (auto) 0.3 %; Hematocrit (blood only) 40.4 % (42.0-52.0); Immature Granulocytes # (auto) 0.08 K/uL (0.01-0.20); Immature Granulocytes % (auto) 0.6 %; Lymphocytes # (auto) 1.16 K/uL (1.20-3.40); Lymphocytes % (auto) 8.1 %; Mean Corpuscular Hgb Conc 32.2 g/dL (32.0-36.0); Mean Corpuscular Volume 93.3 fL (80.0-100.0); Mean Platelet Volume 9.6 fL (9.4-12.4); Monocytes # (auto) 0.13 K/uL (0.11-0.59); Monocytes % (auto) 0.9 %; Neutrophils % (auto) 89.8 %; Platelet Count 271 K/uL (130-400); RDW Coefficient of Variation 13.5 % (11.5-14.5); RDW Standard Deviation 45.8 fL (36.4-46.3); Red Blood Count 4.33 M/uL (4.70-6.10); White Blood Count 14.35 K/ul (4.8-10.8)
--- NOTE | 2023-12-05 15:17 | Anesthesiology Progress Note ---
Date of Service December 05, 2023 Anesthesia Post Procedure Vital Signs Vital Signs: Temp Pulse Resp BP BP Pulse Ox O2 Del Method 12/05/23 15:00 69 16 94/51 L 98 Nasal Cannula 12/05/23 14:50 36.5 C 70 16 98/52 L 97 Nasal Cannula 12/05/23 14:40 69 16 109/59 L 97 Nasal Cannula 12/05/23 14:30 68 16 93/57 L 98 Nasal Cannula 12/05/23 14:20 68 17 101/51 L 98 Nasal Cannula 12/05/23 14:10 36.4 C L 68 16 89/56 L 99 Nasal Cannula 12/05/23 14:00 68 17 100/58 L 97 Nasal Cannula 12/05/23 13:50 66 17 100/56 L 98 Nasal Cannula 12/05/23 13:40 66 16 92/45 L 97 Oxymask 12/05/23 13:30 68 17 106/53 L 97 Oxymask 12/05/23 13:20 64 19 90/45 L 97 Oxymask 12/05/23 13:14 36.2 C L 63 16 119/54 L 95 Oxymask 12/05/23 09:53 36.4 C L 66 18 157/69 H 99 Room Air O2 Flow Rate 12/05/23 15:00 2 12/05/23 14:50 4 12/05/23 14:40 4 12/05/23 14:30 4 12/05/23 14:20 4 12/05/23 14:10 4 12/05/23 14:00 4 12/05/23 13:50 4 12/05/23 13:40 5 12/05/23 13:30 5 12/05/23 13:20 5 12/05/23 13:14 5 12/05/23 09:53 Transfer of Care Handoff Completed per policy Notes Mental Status: alert / awake / arousable and participated in evaluation Patient Amnestic to Procedure: Yes Nausea / Vomiting: adequately controlled Pain: adequately controlled Airway Patency, RR, SpO2: see Notes below BP & HR: stable & adequate Hydration State: stable & adequate Anesthetic Complications: no major complications apparent and Pt Satisfied with anesthetic care Notes: patient had elevated bp after induction. required treatment to normalize bp during procedure. bp afterwards 90's to 100's systolic in pacu. pt alert and conversant. denied dizziness. no chest pain. cbc with hgb 13 postop. pt got 2 liters fluid during procedure so appears euvolemic. no tachycardic. appears ok for transfer to floor
[2023-12-05] MEDS ORDERED: ONDANSETRON INJ 2 MG/ML 2 ML VIAL IV PRN (16:21)
[2023-12-05] MEDS ORDERED: traMADol HCL 50 MG TABLET PO PRN (16:21)
[2023-12-05] MEDS ORDERED: METOCLOPRAMIDE HCL INJ 5 MG/ML 2 ML VIAL IV PRN (16:21)
[2023-12-05] MEDS ORDERED: ACETAMINOPHEN 500 MG TAB PO SCH (16:21)
[2023-12-05] MEDS ORDERED: ALUMINUM/MAGNESIUM SUSP 30 ML UDC PO PRN (16:21)
[2023-12-05] MEDS ORDERED: bisacodyL 10 MG SUPP PR PRN (16:21)
[2023-12-05] MEDS ORDERED: MAGNESIUM HYDROXIDE SUSP 30 ML UDC PO PRN (16:21)
[2023-12-05] MEDS ORDERED: NON-FORMULARY MEDICATION (Sildenafil [Viagra] 100 mg tablet) PO PRN (16:21)
[2023-12-05] MEDS ORDERED: NALOXONE HCL 0.4 MG/1 ML VIAL/CARP IV PRN (16:21)
[2023-12-05] MEDS ORDERED: HYDROmorphone INJ 0.5 MG/0.5 ML SYR IV PRN (16:21)
[2023-12-05] MEDS: SODIUM CHLORIDE 0.9% 1,000 ML IV SCH (16:37)
[2023-12-05] MEDS ORDERED: ALBUTEROL HFA 8 GM INHALER INH PRN (16:47)
[2023-12-05] MEDS: ASCORBIC ACID 500 MG TAB PO SCH (18:26)
[2023-12-05] MEDS: KETOROLAC TROMETHAMINE 15 MG/ML VIAL IV SCH (18:27)
[2023-12-05] MEDS: TRANEXAMIC ACID / 0.7% NACL 1,000 MG/100 ML BAG IV SCH (19:33)
[2023-12-05] MEDS: ceFAZolin 1000MG 1,000 MG/7.5 ML SYR IV SCH (19:33)
[2023-12-05] MEDS ORDERED: Nursing to Pharmacy Communication SCH (20:15)
[2023-12-05] MEDS ORDERED: SENNA 8.6 MG TAB PO SCH (21:00)
[2023-12-05] MEDS: ASPIRIN 81 MG ECTAB PO SCH (21:07)
[2023-12-05] MEDS: DOCUSATE SODIUM 100 MG CAP PO SCH (21:07)
[2023-12-05] MEDS: SENNA 8.6 MG TAB PO SCH (21:08)
[2023-12-05] MEDS: MESALAMINE 400 MG CAPDR PO SCH (21:08)
[2023-12-05] MEDS: NICOTINE 14 MG/24 HR PATCH TD SCH (21:09)
[2023-12-05] MEDS: CLOTRIMAZOLE 1% CR 15 GM TUBE TOP SCH (21:09)
[2023-12-05] MEDS: TRIAMCINOLONE ACET 0.1% CR 15 GM TUBE TOP SCH (21:09)
[2023-12-06 06:19] LABS: BUN Creatinine Ratio 19.3 (10-20); Calcium 8.5 mg/dl (8.6-10.3); Creatinine Clr Calc Pharmacy 39.4 ml/min; Est GFR (African American) 56.3 ml/min; Est GFR (Non-African American) 48.5 ml/min; Potassium 4.4 mmol/L (3.5-5.1)
[2023-12-06 06:43] LABS: Hematocrit (blood only) 30.6 % (42.0-52.0); Mean Corpuscular Hgb Conc 32.7 g/dL (32.0-36.0); Mean Corpuscular Volume 91.9 fL (80.0-100.0); Mean Platelet Volume 10.7 fL (9.4-12.4); Platelet Count 164 K/uL (130-400); RDW Coefficient of Variation 13.7 % (11.5-14.5); RDW Standard Deviation 46.6 fL (36.4-46.3); Red Blood Count 3.33 M/uL (4.70-6.10); White Blood Count 18.82 K/ul (4.8-10.8)
[2023-12-06 06:50] LABS: Basophils # (auto) 0.04 K/uL (0.00-0.20); Basophils % (auto) 0.2 %; Immature Granulocytes # (auto) 0.14 K/uL (0.01-0.20); Immature Granulocytes % (auto) 0.7 %; Lymphocytes % (auto) 5.8 %; Monocytes # (auto) 1.16 K/uL (0.11-0.59); Monocytes % (auto) 6.2 %; Neutrophils # (auto) 16.38 K/uL (1.40-6.50); Neutrophils % (auto) 87.1 %; Platelet Estimate Normal (Normal)
[2023-12-06] MEDS: FLUTICASONE FUROATE 100MCG 14 PUFFS/INHALER INH SCH (08:34)
[2023-12-06] MEDS: UMECLIDINIUM/VILANTEROL 62.5/25MCG 7 PUFFS/INHALER INH SCH (08:34)
[2023-12-06] MEDS: ROSUVASTATIN CALCIUM 10 MG TAB PO SCH (08:35)
[2023-12-06] MEDS: CHOLECALCIFEROL 25 MCG (1000 UNITS) TAB PO SCH (08:36)
[2023-12-06] MEDS: MULTIVITAMIN TAB PO SCH (08:36)
[2023-12-06] MEDS: TAMSULOSIN HCL 0.4 MG CAP PO SCH (08:36)
[2023-12-06] MEDS: VALSARTAN 80 MG TAB PO SCH (08:36)
[2023-12-06] MEDS: FLUoxetine HCL 20 MG CAP PO SCH (08:37)
[2023-12-06] MEDS: CYANOCOBALAMIN (B-12) 500 MCG TABLET PO SCH (08:37)
[2023-12-06] MEDS: dexAMETHasone 10 MG in SYRINGE 0 ML IV SCH (08:37)
[2023-12-06] MEDS ORDERED: NICOTINE 14 MG/24 HR PATCH TD SCH (09:00)
[2023-12-06] MEDS ORDERED: NON-FORMULARY MEDICATION (Fluticasone-Umeclidin-Vilanter [Trelegy Ellipta] 100-62.5-25 mcg INH SCH (09:00)
--- NOTE | 2023-12-06 11:06 | Surgery Progress Note ---
Date of Service December 06, 2023 Assessment & Plan (1) History of revision of total replacement of left hip joint: Plan: 83-year-old gentleman postop day 1 from a left total hip revision. Will rise the acetabular component. He is going great. Minimal pain. Get around quite well. Plan: 1. DVT prophylaxis including thigh-high teds, SCDs, aspirin twice a day. 2. PT/OT. Weight-bear as tolerated left total hip protocol. 3. Pain control doing well with current pain regimen. 4. Disposition plan to discharge home with some home health after therapy today. 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 He is doing quite well this morning. Reports minimal pain. No chest pain or shortness of breath. Not feeling dizzy or lightheaded. Open to go home today. Physical Exam Physical Exam: Physical exam shows a pleasant male. He was walking with a therapist and I visited him today. He is walking quite well. Hip incision and dressings clean dry and intact. Leg lengths appear equal. Thigh is soft and supple. Hips located. He is neurologically intact. He can dorsiflex and plantarflex his foot appropriately. Respiratory: normal respiratory effort, lungs clear to auscultation Cardiovascular: RRR, no murmur, no edema Gastrointestinal (Abdomen): normal bowel sounds, soft, nontender, no hepatosplenomegaly Results & Data Vital Signs (Past 12 Hours) Vital Signs Temp Pulse Pulse Pulse Resp BP BP 12/06/23 09:37 36.7 C 68 88 83 16 130/63 124/54 L 12/06/23 07:09 36.7 C 83 16 124/54 L 12/06/23 02:00 36.3 C L 88 18 130/63 Pulse Ox O2 Del Method 12/06/23 09:37 94 12/06/23 07:09 94 Room Air 12/06/23 02:00 95 Room Air Laboratory Results Hemoglobin is 10.0. Hematocrit is 30.6. Electrolytes are stable. 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
== END 2023-12-06 10:31 | disposition home health service (06) | DRG 467 ==
LOC: 3E 09:21 → ASU 09:21 → OBSVTOIN 13:13